=== PATIENT | female | born 1960 | race Caucasian/White ===

== ENCOUNTER → 2017-11-17 | Outpatient (CLI) | payer BC ==
[~2017-11-17] MED LIST: FLUT230A INH; MULT-160 PO; VENL150C56 PO; ZOLP10TA PO
[2017-11-17 17:05] LABS: ALBUMIN 3.8 gm/dl (3.4-5.0); ALKALINE PHOSPHATASE 125 U/L (45-117); ALT/SGPT 144 U/L (12-78); AST/SGOT 103 U/L (15-37); BLOOD UREA NITROGEN 13 mg/dl (7-18); CALCIUM 9.5 mg/dl (8.5-10.1); CARBON DIOXIDE 30 mmol/L (21-32); CREATININE 1.04 mg/dl (0.60-1.20); GLUCOSE 84 mg/dl (70-99); POTASSIUM 3.6 mmol/L (3.5-5.1); SODIUM 136 mmol/L (136-145); TOTAL PROTEIN 8.2 gm/dl (6.4-8.2)
[2017-11-17 17:36] LABS: HEMOGLOBIN A1C 6.8 % (4.5-5.6)
== END | disposition home or self-care (01) ==
LOC: C.LAB1850 15:12
PROVIDERS: ATTEND Internal Medicine
DX: R74.0 Nonspecific elevation of levels of transaminase and lactic acid dehydrogenase [LDH] (principal); I10 Essential (primary) hypertension; R79.9 Abnormal finding of blood chemistry, unspecified; R73.9 Hyperglycemia, unspecified

== ENCOUNTER → 2017-12-15 | Outpatient (CLI) | payer BC ==
--- NOTE | 2017-12-15 08:36 | DIAGNOSTIC IMAGING REPORT ---
ABDOMEN LIMITED (US) CLINICAL HISTORY: 57 years-old Female presenting with R74.0 Elevated transaminase [id number] Elevated alkaline phospha. TECHNIQUE: Real-time grayscale and limited color Doppler ultrasound imaging of the abdomen limited to the right upper quadrant was performed. COMPARISON: 03/20/[address] from 2008. FINDINGS: Pancreas: Largely obscured due to overlying bowel gas. Liver: Moderately hyperechogenic parenchyma with partial obscuration of the right hemidiaphragm, likely indicating moderate steatosis. The liver measures 19.4 cm in maximal sagittal dimension. No sonographic evidence of hepatic mass. Main portal vein patent with normal directional flow. Biliary: No intrahepatic biliary ductal dilatation. Common bile duct measures up to 3 mm in diameter. Gallbladder: Surgically absent. Right kidney: Normal in appearance. No hydronephrosis. Ascites: None. IMPRESSION: 1. Hepatic steatosis. Correlate with liver function tests to exclude steatohepatitis as a cause for abdominal pain. 2. Mild hepatomegaly 3. Status post cholecystectomy. Electronically signed by: Pramod Davis M.D. 12/15/2017 8:35 AM Dictated Date/Time: 12/15/2017 8:33 AM
== END | disposition home or self-care (01) ==
LOC: C.ULTRBC 07:46
PROVIDERS: ATTEND Internal Medicine
DX: R74.0 Nonspecific elevation of levels of transaminase and lactic acid dehydrogenase [LDH] (principal); R74.8 Abnormal levels of other serum enzymes; R16.0 Hepatomegaly, not elsewhere classified; K76.0 Fatty (change of) liver, not elsewhere classified

== ENCOUNTER 2023-06-13 08:47 | Inpatient (IN) ==
[2023-06-13] MEDS ORDERED: LORazepam 1 MG TAB SL STA (09:08)
[2023-06-13] MEDS ORDERED: metFORMIN HCL 500 MG TAB PO STA (09:08)
--- NOTE | 2023-06-13 09:08 | Emergency Department Note ---
Impression & Plan Suicidal ideations, Acute hyperglycemia ED Provider Note NAME: NOE GREEN AGE: 62 SEX: F : 1960 ARRIVES VIA: Walk-In INFORMANT: Patient ED PROVIDER(S): Kaiden Servin DO CHIEF COMPLAINT: Suicidal ideations HPI: Patient is a 62-year-old female who presents to the ER for suicidal ideations. She has a history of depression and notes that over the past 3 days she has been thinking of killing herself. She notes that she is going to overdose on her medications. Denies any headache or change in vision. No chest pain or shortness of breath. No nausea, vomiting, or diarrhea. She notes everything is secondary to her son dying and today is the anniversary of her son's . She notes that she has been having trouble taking her medications. PAST MEDICAL HISTORY:See Below PAST SURGICAL HISTORY:See Below FAMILY HISTORY:See Below SOCIAL HISTORY:See Below HOME MEDICATIONS:See Below ALLERGIES:See Below VITALS:See Below PHYSICAL EXAMINATION: GENERAL: Sitting up in bed, alert, well appearing, well nourished, no distress, non-toxic EYE EXAM: normal conjunctiva. OROPHARYNX: no exudate, no erythema, lips, buccal mucosa, and tongue normal and mucous membranes are moist NECK: supple, no nuchal rigidity, no adenopathy, non-tender LUNGS: Clear to auscultation. Normal chest wall mechanics HEART: no murmurs, S1 normal and S2 normal ABDOMEN: abdomen soft, non-tender, normo-active bowel sounds, no masses, no rebound or guarding. BACK: Back is symmetrical on inspection and there is no deformity, no midline tenderness, no CVA tenderness. SKIN: no rashes and no bruising UPPER EXTREMITIES: upper extremities are grossly normal. LOWER EXTREMITIES: No pitting edema. NEURO EXAM: Normal sensorium, cranial nerves II-XII grossly intact, normal speech, no gross weakness of arms, no gross weakness of legs. PSYCH: Admits to suicidal ideations with a plan to overdose MEDICAL DECISION MAKING: Patient is a 62-year-old female who presents ER for above-stated complaint. IV was established blood work was obtained. External records reviewed. Labs show no significant leukocytosis or anemia. BMP with mild hyponatremia at 134 which was pseudohyponatremia secondary to the hyperglycemia at 348. Patient was given IV fluids and IV insulin. Sugars trended down to 160. LFTs were unremarkable. TSH was normal. UA was contaminated. Tox was negative. Alcohol negative. COVID-negative. Patient was referred to 3 S. Sugars were elevated as she missed her metformin today. She was admitted for further work-up for suicidal ideations with a plan to kill her self. Patient was also given one-time dose of oral Ativan to help her calm down during evaluation Triage Nursing notes reviewed. Limited review of prior medical records performed Vital Signs: reviewed and remarkable for HTN Differential diagnosis: Mood disorder, infection, hypoglycemia, electrolyte abnormalities, cardiac sources, intracerebral event, toxicologic, trauma, neurologic, as well as other pathologies. ER treatment provided: See below Diagnostics interpreted by me include EKG and cardiac monitoring as listed below: -Cardiac Monitoring: An order was placed for continuous cardiac monitoring. The monitor shows a rate of 90 with sinus rhythm. -ECG: none -Laboratory studies:Interpreted by me as stated above in MDM and shown below. Imaging studies: Xrays: As interpreted by me:none CTs show: none Consultation(s): As described in MDM Procedures:none Critical Care: None Past Med/Surg History Medical History Anxiety and depression Asthma Endometriosis History of COVID-19 Nausea and vomiting after administration of anesthetic agent Suicidal ideation Surgical History H/O colonoscopy History of cholecystectomy History of dilation and curettage History of esophagogastroduodenoscopy (EGD) History of hysteroscopy History of laparoscopy History of total abdominal hysterectomy Hx of hernia repair Family History Father Lymphoma Acute myocardial infarction Diabetes Myocardial infarction Son Chronic liver disease Denies family history of Ovarian cancer Prostate cancer Breast cancer Colorectal cancer Social History Smoking Status: Never smoker Second Hand Exposure: Yes (mother smoked); Do You Dip or Chew Tobacco: No; Hx Alcohol Use: Yes Alcohol type: hard liquor Hx Substance Use: No Preferred Language: Maori Communication Ability: Effective Visual Impairment: No Limitations Hearing Ability: Normal Arcade Game Technician Required: No Beliefs That Will Affect Care: None marital status: Current Living Situation: Alone current occupational status: employed current occupation: medical billing Feels Safe at Home: Yes Childhood Exposure to Second-Hand Smoke: Yes Dental Care, Regularly: Yes Physical Activity Frequency: Daily Seatbelt Use: always Sunscreen Use: No Gender Identity: Female Assistive Devices: None Allergies Allergies Allergy/AdvReac Type Severity Reaction Status Date / Time codeine Allergy Unknown RASH - PER Verified 06/13/23 10:31 DR BAJWA, PT HAS HAD MORPHINE IN PAST Home Meds Home Medications Medication Instructions Recorded Confirmed multivitamin (One-A-Day Essential 1 tab PO HS 05/03/19 06/13/23 tablet) blood sugar diagnostic (OneTouch 03/19/21 04/18/23 Verio test strips) lancets 33 gauge (BD Ultra Fine 03/19/21 04/18/23 Lancets) fluticasone furoate 200 1 inh inhalation BID 06/13/23 06/13/23 mcg-vilanterol 25 mcg/dose inhalation powder Previous Rx's Medication Instructions Recorded metformin 500 mg tablet 500 mg PO TID #90 tabs 02/14/23 atorvastatin 40 mg tablet 40 mg PO HS #30 tabs 03/18/23 buspirone 7.5 mg tablet 7.5 mg PO BID #180 tabs 04/10/23 albuterol sulfate 90 mcg/actuation 2 puff inhalation QAM #8.5 grams 05/05/23 aerosol inhaler (Ventolin HFA) venlafaxine 150 mg 150 mg PO HS #90 caps 05/09/23 capsule,extended release 24 hr (Effexor XR) venlafaxine 75 mg capsule,extended 75 mg PO HS #90 caps 05/09/23 release 24 hr (Effexor XR) lorazepam 0.5 mg tablet 0.5 mg PO BID PRN anxiety #60 tabs 05/15/23 zolpidem 10 mg tablet 10 mg PO HS #30 tabs 06/09/23 aripiprazole 2 mg tablet (Abilify) 2 mg PO DAILY #30 tabs 06/12/23 Results & Data (ED) Vital Signs Vital Signs - 24 hr 06/13/23 08:51 06/13/23 11:54 Temperature 36.7 C Temperature Source Temporal Artery Scan Pulse Rate 96 H Pulse Rate [Apical] 86 Respiratory Rate 20 18 Respiratory Effort / Characteristics Non-Labored Spontaneous Respiratory Depth Normal Respiratory Pattern Regular Blood Pressure 212/109 H Blood Pressure [Right Arm] 152/93 H Blood Pressure Mean 143 Blood Pressure Mean [Right Arm] 112 Blood Pressure Position Sitting Pulse Oximetry 97 98 Oxygen Delivery Method Room Air Sepsis Recent Fever Within 48 Hours No Sepsis New/Unexplained Change in Mental Status No Sepsis Action Taken by Nursing No Action Required Laboratory Data 06/13/23 09:16 06/13/23 09:16 Lab Results 06/13/23 06/13/23 06/13/23 Range/Units 09:16 09:16 09:16 WBC 6.20 (4.8-10.8) K/ul RBC 4.82 (4.20-5.40) M/uL Hgb 14.6 (12.0-16.0) g/dl Hct 44.1 (37.0-47.0) % MCV 91.5 (80.0-100.0) fL MCH 30.3 (25.0-34.0) pg MCHC 33.1 (32.0-36.0) g/dL RDW Std Deviation 47.2 H (36.4-46.3) fL RDW Coeff of Pako 14.0 (11.5-14.5) % Plt Count 223 (130-400) K/uL MPV 11.1 (9.4-12.4) fL Immature Gran % (Auto) 1.0 % Neut % (Auto) 70.1 % Lymph % (Auto) 21.6 % Coleman % (Auto) 4.7 % Eos % (Auto) 1.6 % Baso % (Auto) 1.0 % Neut # (Auto) 4.35 (1.40-6.50) K/uL Lymph # (Auto) 1.34 (1.2-3.4) K/uL Coleman # (Auto) 0.29 (0.11-0.59) K/uL Eos # (Auto) 0.10 (0-0.50) K/uL Baso # (Auto) 0.06 (0-0.2) K/uL Immature Gran # (Auto) 0.06 (0.01-0.20) K/uL Sodium 134 L (136-145) mmol/L Potassium 4.0 (3.5-5.1) mmol/L Chloride 102 (98-107) mmol/L Carbon Dioxide 24 (21-32) mmol/L Anion Gap 8 (3-11) BUN 16 (6-23) mg/dl Creatinine 0.93 (0.6-1.2) mg/dl Est Cr Clr Drug Dosing 86.0 ml/min Est GFR ( Amer) 76.9 ml/min Est GFR (Non-Af Amer) 66.3 ml/min BUN/Creatinine Ratio 17.2 (10-20) Glucose 348 H* (70-99(Fasting)) mg/dl POC Glucose (70-99) mg/dl Calcium 9.5 (8.6-10.3) mg/dl Total Bilirubin 0.5 (0.2-1.0) mg/dl AST 49 H (13-39) U/L ALT 91 H (7-52) U/L Alkaline Phosphatase 105 H (34-104) U/L Total Protein 7.1 (6.0-8.3) gm/dl Albumin 4.1 (3.4-5.0) gm/dl Globulin 3.0 (2.5-4.0) gm/dl Albumin/Globulin Ratio 1.4 (0.9-2) TSH 2.394 (0.300-4.500) uIu/ml Urine Color Urine Appearance (Clear) Urine pH (4.5-7.5) Ur Specific Premont (1.000-1.030) Urine Protein (Negative) Urine Glucose (UA) (Negative) Urine Ketones (Negative) Urine Blood (Negative) Urine Nitrite (Negative) Urine Bilirubin (Negative) Urine Urobilinogen (Negative) Ur Leukocyte Esterase (Negative) Urine WBC (Auto) (0-5) /hpf Urine RBC (Auto) (0-4) /hpf U Hyaline Cast (Auto) (0-5) /lpf U Epithel Cells (Auto) (0-5) /lpf Urine Bacteria (Auto) (Negative) Salicylates (3.0-30) mg/dl Urine Opiates Screen (Neg) Ur Methadone, Qual (Neg) Acetaminophen (10-30) ug/ml Urine Barbiturates (Neg) Ur Phencyclidine (PCP) (Neg) U Amphetamin/Meth Scrn (Neg) MDMA (Ecstasy) Screen (Neg) U Benzodiazepines Scrn (Neg) Ur Cocaine Metabolite (Neg) U Marijuana (THC) Screen (Neg) Ethyl Alcohol mg/dL (<10.0) mg/dl SARS-CoV-2, RNA, NAAT (NEGATIVE) 06/13/23 06/13/23 06/13/23 Range/Units 09:16 09:16 09:23 WBC (4.8-10.8) K/ul RBC (4.20-5.40) M/uL Hgb (12.0-16.0) g/dl Hct (37.0-47.0) % MCV (80.0-100.0) fL MCH (25.0-34.0) pg MCHC (32.0-36.0) g/dL RDW Std Deviation (36.4-46.3) fL RDW Coeff of Pako (11.5-14.5) % Plt Count (130-400) K/uL MPV (9.4-12.4) fL Immature Gran % (Auto) % Neut % (Auto) % Lymph % (Auto) % Coleman % (Auto) % Eos % (Auto) % Baso % (Auto) % Neut # (Auto) (1.40-6.50) K/uL Lymph # (Auto) (1.2-3.4) K/uL Coleman # (Auto) (0.11-0.59) K/uL Eos # (Auto) (0-0.50) K/uL Baso # (Auto) (0-0.2) K/uL Immature Gran # (Auto) (0.01-0.20) K/uL Sodium (136-145) mmol/L Potassium (3.5-5.1) mmol/L Chloride (98-107) mmol/L Carbon Dioxide (21-32) mmol/L Anion Gap (3-11) BUN (6-23) mg/dl Creatinine (0.6-1.2) mg/dl Est Cr Clr Drug Dosing ml/min Est GFR ( Amer) ml/min Est GFR (Non-Af Amer) ml/min BUN/Creatinine Ratio (10-20) Glucose (70-99(Fasting)) mg/dl POC Glucose (70-99) mg/dl Calcium (8.6-10.3) mg/dl Total Bilirubin (0.2-1.0) mg/dl AST (13-39) U/L ALT (7-52) U/L Alkaline Phosphatase (34-104) U/L Total Protein (6.0-8.3) gm/dl Albumin (3.4-5.0) gm/dl Globulin (2.5-4.0) gm/dl Albumin/Globulin Ratio (0.9-2) TSH (0.300-4.500) uIu/ml Urine Color Urine Appearance (Clear) Urine pH (4.5-7.5) Ur Specific Premont (1.000-1.030) Urine Protein (Negative) Urine Glucose (UA) (Negative) Urine Ketones (Negative) Urine Blood (Negative) Urine Nitrite (Negative) Urine Bilirubin (Negative) Urine Urobilinogen (Negative) Ur Leukocyte Esterase (Negative) Urine WBC (Auto) (0-5) /hpf Urine RBC (Auto) (0-4) /hpf U Hyaline Cast (Auto) (0-5) /lpf U Epithel Cells (Auto) (0-5) /lpf Urine Bacteria (Auto) (Negative) Salicylates < 3.0 L (3.0-30) mg/dl Urine Opiates Screen (Neg) Ur Methadone, Qual (Neg) Acetaminophen < 3 L (10-30) ug/ml Urine Barbiturates (Neg) Ur Phencyclidine (PCP) (Neg) U Amphetamin/Meth Scrn (Neg) MDMA (Ecstasy) Screen (Neg) U Benzodiazepines Scrn (Neg) Ur Cocaine Metabolite (Neg) U Marijuana (THC) Screen (Neg) Ethyl Alcohol mg/dL < 10.0 (<10.0) mg/dl SARS-CoV-2, RNA, NAAT NEGATIVE (NEGATIVE) 06/13/23 06/13/23 06/13/23 Range/Units 09:23 09:23 11:12 WBC (4.8-10.8) K/ul RBC (4.20-5.40) M/uL Hgb (12.0-16.0) g/dl Hct (37.0-47.0) % MCV (80.0-100.0) fL MCH (25.0-34.0) pg MCHC (32.0-36.0) g/dL RDW Std Deviation (36.4-46.3) fL RDW Coeff of Pako (11.5-14.5) % Plt Count (130-400) K/uL MPV (9.4-12.4) fL Immature Gran % (Auto) % Neut % (Auto) % Lymph % (Auto) % Coleman % (Auto) % Eos % (Auto) % Baso % (Auto) % Neut # (Auto) (1.40-6.50) K/uL Lymph # (Auto) (1.2-3.4) K/uL Coleman # (Auto) (0.11-0.59) K/uL Eos # (Auto) (0-0.50) K/uL Baso # (Auto) (0-0.2) K/uL Immature Gran # (Auto) (0.01-0.20) K/uL Sodium (136-145) mmol/L Potassium (3.5-5.1) mmol/L Chloride (98-107) mmol/L Carbon Dioxide (21-32) mmol/L Anion Gap (3-11) BUN (6-23) mg/dl Creatinine (0.6-1.2) mg/dl Est Cr Clr Drug Dosing ml/min Est GFR ( Amer) ml/min Est GFR (Non-Af Amer) ml/min BUN/Creatinine Ratio (10-20) Glucose (70-99(Fasting)) mg/dl POC Glucose 249 H (70-99) mg/dl Calcium (8.6-10.3) mg/dl Total Bilirubin (0.2-1.0) mg/dl AST (13-39) U/L ALT (7-52) U/L Alkaline Phosphatase (34-104) U/L Total Protein (6.0-8.3) gm/dl Albumin (3.4-5.0) gm/dl Globulin (2.5-4.0) gm/dl Albumin/Globulin Ratio (0.9-2) TSH (0.300-4.500) uIu/ml Urine Color Yellow Urine Appearance Clear (Clear) Urine pH 5.0 (4.5-7.5) Ur Specific Premont 1.036 H (1.000-1.030) Urine Protein Trace H (Negative) Urine Glucose (UA) 3+ H (Negative) Urine Ketones Trace H (Negative) Urine Blood Negative (Negative) Urine Nitrite Negative (Negative) Urine Bilirubin Negative (Negative) Urine Urobilinogen Negative (Negative) Ur Leukocyte Esterase Negative (Negative) Urine WBC (Auto) 5-10 H (0-5) /hpf Urine RBC (Auto) 0-4 (0-4) /hpf U Hyaline Cast (Auto) 1-5 (0-5) /lpf U Epithel Cells (Auto) >30 H (0-5) /lpf Urine Bacteria (Auto) 1+ H (Negative) Salicylates (3.0-30) mg/dl Urine Opiates Screen Neg (Neg) Ur Methadone, Qual Neg (Neg) Acetaminophen (10-30) ug/ml Urine Barbiturates Neg (Neg) Ur Phencyclidine (PCP) Neg (Neg) U Amphetamin/Meth Scrn Neg (Neg) MDMA (Ecstasy) Screen Neg (Neg) U Benzodiazepines Scrn Neg (Neg) Ur Cocaine Metabolite Neg (Neg) U Marijuana (THC) Screen Neg (Neg) Ethyl Alcohol mg/dL (<10.0) mg/dl SARS-CoV-2, RNA, NAAT (NEGATIVE) 06/13/23 Range/Units 11:55 WBC (4.8-10.8) K/ul RBC (4.20-5.40) M/uL Hgb (12.0-16.0) g/dl Hct (37.0-47.0) % MCV (80.0-100.0) fL MCH (25.0-34.0) pg MCHC (32.0-36.0) g/dL RDW Std Deviation (36.4-46.3) fL RDW Coeff of Pako (11.5-14.5) % Plt Count (130-400) K/uL MPV (9.4-12.4) fL Immature Gran % (Auto) % Neut % (Auto) % Lymph % (Auto) % Coleman % (Auto) % Eos % (Auto) % Baso % (Auto) % Neut # (Auto) (1.40-6.50) K/uL Lymph # (Auto) (1.2-3.4) K/uL Coleman # (Auto) (0.11-0.59) K/uL Eos # (Auto) (0-0.50) K/uL Baso # (Auto) (0-0.2) K/uL Immature Gran # (Auto) (0.01-0.20) K/uL Sodium (136-145) mmol/L Potassium (3.5-5.1) mmol/L Chloride (98-107) mmol/L Carbon Dioxide (21-32) mmol/L Anion Gap (3-11) BUN (6-23) mg/dl Creatinine (0.6-1.2) mg/dl Est Cr Clr Drug Dosing ml/min Est GFR ( Amer) ml/min Est GFR (Non-Af Amer) ml/min BUN/Creatinine Ratio (10-20) Glucose (70-99(Fasting)) mg/dl POC Glucose 167 H (70-99) mg/dl Calcium (8.6-10.3) mg/dl Total Bilirubin (0.2-1.0) mg/dl AST (13-39) U/L ALT (7-52) U/L Alkaline Phosphatase (34-104) U/L Total Protein (6.0-8.3) gm/dl Albumin (3.4-5.0) gm/dl Globulin (2.5-4.0) gm/dl Albumin/Globulin Ratio (0.9-2) TSH (0.300-4.500) uIu/ml Urine Color Urine Appearance (Clear) Urine pH (4.5-7.5) Ur Specific Premont (1.000-1.030) Urine Protein (Negative) Urine Glucose (UA) (Negative) Urine Ketones (Negative) Urine Blood (Negative) Urine Nitrite (Negative) Urine Bilirubin (Negative) Urine Urobilinogen (Negative) Ur Leukocyte Esterase (Negative) Urine WBC (Auto) (0-5) /hpf Urine RBC (Auto) (0-4) /hpf U Hyaline Cast (Auto) (0-5) /lpf U Epithel Cells (Auto) (0-5) /lpf Urine Bacteria (Auto) (Negative) Salicylates (3.0-30) mg/dl Urine Opiates Screen (Neg) Ur Methadone, Qual (Neg) Acetaminophen (10-30) ug/ml Urine Barbiturates (Neg) Ur Phencyclidine (PCP) (Neg) U Amphetamin/Meth Scrn (Neg) MDMA (Ecstasy) Screen (Neg) U Benzodiazepines Scrn (Neg) Ur Cocaine Metabolite (Neg) U Marijuana (THC) Screen (Neg) Ethyl Alcohol mg/dL (<10.0) mg/dl SARS-CoV-2, RNA, NAAT (NEGATIVE) Administered Medications Discontinued Medications Sodium Chloride (Nss 1000ml) 1,000 mls @ 999 mls/hr IV .[id number] ONE Stop: 06/13/23 11:03 Last Infusion: 06/13/23 11:29 Dose: 0 mls/hr Documented By: Admin: 06/13/23 10:18 Dose: 999 mls/hr Documented By: JAY Insulin Human Regular (Novolin-R Insulin Per Unit Charge) 5 units IV NOW STA Stop: 06/13/23 10:04 Last Admin: 06/13/23 10:17 Dose: 5 units Documented By: JAY Co-signed By: ELIS Lorazepam (Lorazepam 1 Mg Tab) 1 mg SL NOW STA Stop: 06/13/23 09:09 Last Admin: 06/13/23 09:34 Dose: 1 mg Documented By: JAY Metformin HCl (Metformin Hcl 500 Mg Tab) 1,000 mg PO NOW STA Stop: 06/13/23 09:09 Last Admin: 06/13/23 09:40 Dose: 1,000 mg Documented By: JAY Discharge Plan Visit Data Chief Complaint: Mental Health Evaluation Stated Complaint: [facility] ED Provider: Kaiden Servin Discharge Problem: Suicidal ideations, Acute hyperglycemia
[2023-06-13 09:46] LABS: Basophils # (auto) 0.06 K/uL (0-0.2); Eosinophils % (auto) 1.6 %; Hematocrit (blood only) 44.1 % (37.0-47.0); Hemoglobin 14.6 g/dl (12.0-16.0); Immature Granulocytes # (auto) 0.06 K/uL (0.01-0.20); Lymphocytes # (auto) 1.34 K/uL (1.2-3.4); Lymphocytes % (auto) 21.6 %; Mean Corpuscular Hemoglobin 30.3 pg (25.0-34.0); Mean Corpuscular Hgb Conc 33.1 g/dL (32.0-36.0); Mean Corpuscular Volume 91.5 fL (80.0-100.0); Mean Platelet Volume 11.1 fL (9.4-12.4); Monocytes # (auto) 0.29 K/uL (0.11-0.59); Monocytes % (auto) 4.7 %; Neutrophils # (auto) 4.35 K/uL (1.40-6.50); Neutrophils % (auto) 70.1 %; Platelet Count 223 K/uL (130-400); RDW Standard Deviation 47.2 fL (36.4-46.3); Red Blood Count 4.82 M/uL (4.20-5.40)
[2023-06-13] MEDS ORDERED: NovoLIN-R INSULIN PER UNIT CHARGE IV STA (10:03)
[2023-06-13] MEDS ORDERED: SODIUM CHLORIDE 0.9% 1000ML 1,000 ML IV ONE (10:03)
[2023-06-13 10:04] LABS: Albumin Globulin Ratio 1.4 (0.9-2); Albumin Level 4.1 gm/dl (3.4-5.0); BUN Creatinine Ratio 17.2 (10-20); Bilirubin,Total 0.5 mg/dl (0.2-1.0); Calcium 9.5 mg/dl (8.6-10.3); Est GFR (African American) 76.9 ml/min; Est GFR (Non-African American) 66.3 ml/min; Total Protein 7.1 gm/dl (6.0-8.3)
[2023-06-13 10:10] LABS: Acetaminophen < 3 ug/ml (10-30); Salicylate < 3.0 mg/dl (3.0-30)
[2023-06-13 10:23] LABS: Amphetamines+Metham, Urine Neg (Neg); Barbiturates, Urine Neg (Neg); Benzodiazepine, Urine Neg (Neg); Cocaine, Urine Neg (Neg); MDMA (Ecstacy), Urine Neg (Neg); Methadone, Urine Neg (Neg); Opiate, Urine Neg (Neg); Phencyclidine, Urine Neg (Neg)
[2023-06-13 10:25] LABS: Appearance Urine Clear (Clear); Bacteria Urine Automated 1+ (Negative); Bilirubin Urine Negative (Negative); Blood Urine Negative (Negative); Color Urine Yellow; Epithelial Cell Urine Auto >30 /lpf (0-5); Glucose Urine UA 3+ (Negative); Ketones Urine Trace (Negative); Leukocyte Esterase Urine Negative (Negative); Nitrite Urine Negative (Negative); Protein Urine Trace (Negative); RBC Urine Automated 0-4 /hpf (0-4); Specific Gravity Urine 1.036 (1.000-1.030); Urobilinogen Urine Negative (Negative)
[2023-06-13] MEDS ORDERED: MAGNESIUM HYDROXIDE SUSP 30 ML UDC PO PRN (12:56)
[2023-06-13] MEDS ORDERED: ALUMINUM/MAGNESIUM SUSP 30 ML UDC PO PRN (12:56)
[2023-06-13] MEDS ORDERED: hydrOXYzine HCl 25 MG TAB PO PRN ×2 (12:56)
[2023-06-13] MEDS ORDERED: BISMUTH SUBSALICYLATE LIQD 236 ML PO PRN (12:56)
[2023-06-13] MEDS ORDERED: SODIUM CHLORIDE 0.65% NA SOLN 45 ML (OCEAN) PRN (12:56)
[2023-06-13] MEDS ORDERED: ACETAMINOPHEN 325 MG TAB PO PRN (12:56)
[2023-06-13] MEDS ORDERED: metFORMIN HCL 500 MG TAB PO SCH (14:00)
[2023-06-13] MEDS ORDERED: PHARMACY GLYCEMIC MGMT CONSULT PRN (14:29)
--- NOTE | 2023-06-13 14:49 | Pharmacy Report ---
Pharmacy Glycemic Short Note 2 - Date of Service June 13, 2023 - Glycemic Short BSG Results (Last 24 hours): 06/13/23 06/13/23 06/13/23 09:16 11:12 11:55 Glucose 348 H* POC Glucose 249 H 167 H OUTPATIENT ANTIDIABETIC REGIMEN: * metformin 500 mg PO TID * HbA1C = 8.1% (10/2022) -- on order for 06/14/23 ASSESSMENT: * Ms Fung is a 62 y/o F with a PMH of T2DM on metformin. HbA1C > 3 months old so ordered new value. * BSG on admission was 348 but per patient this was after a large breakfast. She also did not take her metformin this morning * Lunch BSG was 249/167 mg/dL. * Discussed with RN. Patient is agreeable to insulin but would like to attempt to manage BSGs with metformin first. RN will add ACHS checks (no Novolog ordered at this point). * Insulin to be ordered tomorrow if BSGs are elevated. PLAN FOR INPATIENT GLYCEMIC CONTROL: * metformin 500 mg PO TIDM * Basal insulin * HOLD * Bolus insulin - HOLD at this point * NovoLog per scale ACHS or Q6hrs while NPO * Goal Range: Low -- mg/dL - High -- mg/dL * Correction Factor: -- mg/dL/unit * Nutritional / Prandial insulin per carb ratio of 1 unit per -- grams CHO consumed
[2023-06-13] MEDS: metFORMIN HCL 500 MG TAB PO SCH (17:18)
[2023-06-13] MEDS ORDERED: ALBUTEROL HFA 8 GM INHALER INH PRN (18:57)
[2023-06-13] MEDS ORDERED: VENLAFAXINE HCL XR 150 MG CAPXR PO SCH (21:00)
[2023-06-13] MEDS ORDERED: ARIPiprazole 5 MG TAB PO SCH (21:00)
[2023-06-13] MEDS: busPIRone 7.5 MG TAB PO SCH (21:43)
[2023-06-13] MEDS: FLUTICASONE/VILANTEROL 200/25MCG 14 PUFFS/INHALER INH SCH (21:44)
[2023-06-13] MEDS: MULTIVITAMIN TAB PO SCH (21:44)
[2023-06-13] MEDS: ZOLPIDEM TARTRATE 5 MG TAB PO SCH (21:52)
[2023-06-13] MEDS ORDERED: ZOLPIDEM TARTRATE 10 MG TAB PO SCH (22:00)
[2023-06-13] MEDS ORDERED: ARIPIprazole 1 MG/ML ORAL SOLN 150 ML BTL PO SCH (22:00)
[2023-06-13] MEDS ORDERED: VENLAFAXINE HCL XR 75 MG CAPXR PO SCH (22:00)
[2023-06-13] MEDS: VENLAFAXINE HCL XR 150 MG CAPXR PO SCH (22:07)
[2023-06-14 07:54] LABS: Chol HDL Ratio 5.4 (0-5)
[2023-06-14 07:56] LABS: Estimated Average Glucose 243 mg/dl; Hemoglobin A1C 10.1 % (4.5-5.6)
[2023-06-14] MEDS ORDERED: DEXTROSE 50% 50 ML SYRINGE IV PRN (08:30)
[2023-06-14] MEDS ORDERED: CARBOHYDRATES FOR HYPOGLYCEMIA PO PRN (08:30)
[2023-06-14] MEDS ORDERED: GLUCOSE 40% GEL 15 GM TUBE PO PRN (08:30)
[2023-06-14] MEDS ORDERED: GLUCOSE 10 TAB/TUBE PO PRN (08:30)
[2023-06-14] MEDS ORDERED: GLUCAGON FOR INJ 1 MG VIAL IM PRN (08:30)
[2023-06-14] MEDS: metFORMIN HCL 500 MG TAB PO SCH ×3 (08:53→18:41)
[2023-06-14] MEDS: busPIRone 7.5 MG TAB PO SCH ×2 (08:53→18:41)
[2023-06-14] MEDS: ATORVASTATIN 40 MG TAB PO SCH (08:53)
[2023-06-14] MEDS: INSULIN ASPART PER UNIT CHARGE SC SCH ×4 (09:00→21:17)
--- NOTE | 2023-06-14 13:28 | History & Physical ---
Date of Service June 14, 2023 Impression / Recommendations Impression 62 yo female with a hx of recurring depression with anxious features since the loss of her son 10 years ago. Full med trial info not currently available but desires to change longstanding rx of Effexor XR. Patient's LFTs, glucose, and lipid profile worsening, unclear if self care/compliance vs. low dose Abilify, regardless reports no interval improvement on 3 mg vs 2 mg. (1) Depression with anxiety: (2) Diabetes mellitus type 2, uncontrolled: (3) Elevated liver enzymes: Plan The patient was admitted to the [facility] ([facility] mental health unit) on q15 min checks (behavioral with suicide precautions) for safety. The patient will participate in group, recreational, and milieu therapies and will be offered additional individual and family sessions as clinically appropriate. Risks/benefits/alternatives reviewed re: current medications, including but not limited to metabolic risks with Abilify and need for taper of Effexor XR due to discontinuation syndrome risk. Patient has hx of side effects to SSRIs and traditionally responded well to SNRI so would offer trial of Cymbalta as Effexor decreased, will discuss more in am. Decrease Effexor XR to 150 mg tonight. Inventory Assets Strengths: thoughtful, help seeking Needs: outpatient therapy/medication management, improve social activities. Suicide Risk Level Suicide Risk Level: Moderate (q15 min suicide checks) Risk Factors Assessment : Yes Do You Have Access To A Gun?: No Mental Health Diagnoses: Yes Substance Use Disorders: No Previous Attempt: No Previous Psychiatric Hospitalization: Yes Protective Factors Assessment Employed: No Psychiatric History Identifying Data NOE GREEN is a 62-year-old F who currently lives in [place], has a history of depression/complicated grief with 1 prior inpatient stay, and was admitted on 06/13/23 12:56 on a 201 voluntary commitment for SI with plan. Note: the patient was seen within 24 hrs. of arrival to our unit, note creation was delayed due to technical issue. Chief Complaint "I'm lonely." History of Present Illness Patient states that since last contact she has continued to grieve the of her son. She did divorce and dated a man for 5 years and was engaged to him when he unfortunately due to COVID. She reports being laid off from work about 8 months ago and thought that would be "good but then it wasn't." She has been increasingly lonely the past month with lack of interest and motivation in things. She is considering giving her dog to an interested family as although she is meeting his needs, she doesn't feel attached "the way I should." She also does recognize this would be less companionship but "spirals" as also thinks about visiting friends which is difficult when has to be home for the pet. She has taken Effexor XR for years and just doesn't feel it's working as well. That said, had a consult with Dr. Kearney through [facility] in past and was started on Abilify with little perceived benefit. Her blood sugars are not as good lately and she isn't sure why, timing doesn't necessarily coincide with med change. Yesterday was the anniversary of her son's and it was "all too much" and that is why she decided to come to ED when had thoughts of OD on Ambien. She doesn't want to act on those thoughts as Ambien is the "only" thing that has helped her to sleep. Past Psychiatric History Current Psychiatric Diagnosis: depression, PTSD Previous Psych Admissions: 2012 [facility] (SI after son's ) Do You Have Access To A Gun?: No History of Previous Suicide Attempt: No Past Medication Trials: Prozac caused SI per patient, Wellbutrin (?ineffective), denied other mood stabilizers. Abilify, Effexor XR (?6 years), Buspar. Allergies Allergy/AdvReac Type Severity Reaction Status Date / Time codeine Allergy Unknown RASH - PER Verified 06/13/23 10:31 DR BAJWA, PT HAS HAD MORPHINE IN PAST Home Medications Medication Instructions Recorded Confirmed Type multivitamin (One-A-Day Essential 1 tab PO HS 05/03/19 06/13/23 History tablet) blood sugar diagnostic (OneTouch 03/19/21 04/18/23 History Verio test strips) lancets 33 gauge (BD Ultra Fine 03/19/21 04/18/23 History Lancets) metformin 500 mg tablet 500 mg PO TID #90 tabs 02/14/23 06/13/23 Rx atorvastatin 40 mg tablet 40 mg PO HS #30 tabs 03/18/23 06/13/23 Rx buspirone 7.5 mg tablet 7.5 mg PO BID #180 tabs 04/10/23 06/13/23 Rx albuterol sulfate 90 mcg/actuation 2 puff inhalation QAM #8.5 grams 05/05/23 06/13/23 Rx aerosol inhaler (Ventolin HFA) venlafaxine 150 mg 150 mg PO HS #90 caps 05/09/23 06/13/23 Rx capsule,extended release 24 hr (Effexor XR) venlafaxine 75 mg capsule,extended 75 mg PO HS #90 caps 05/09/23 06/13/23 Rx release 24 hr (Effexor XR) lorazepam 0.5 mg tablet 0.5 mg PO BID PRN anxiety #60 tabs 05/15/23 06/13/23 Rx zolpidem 10 mg tablet 10 mg PO HS #30 tabs 06/09/23 06/13/23 Rx fluticasone furoate 200 1 inh inhalation BID 06/13/23 06/14/23 History mcg-vilanterol 25 mcg/dose inhalation powder aripiprazole 2 mg tablet (Abilify) 2 mg PO HS 06/14/23 06/14/23 History Family History Family History of: None Family Mental Health History Comment: father had depression Alcohol History Hx of Alcohol Use Over the Past 12 Months: No AUDIT Total Score: 0 Smoking Use Have You Smoked or Used Tobacco Products in the Last 30 Days: No Smoking Status: Never smoker Substance History Hx of Prescription Med Misuse Over the Past 12 Months: No Hx of Over the Counter Med Misuse Over the Past 12 Months: No Hx of Inhalent Misuse Over the Past 12 Months: No Hx of Organic Substance Use Over the Past 12 Months: No Hx of Illegal Substances/Street Drug Use Over Past 12 Months: No Problems as a Result of Past Substance Use: None Identified Personal History Living Arrangements: Home Highest Grade Completed: High School Graduate Employment Status: Other (laid off, states would be able to retire) Marital Status: Number Of Children: 1 Beliefs That Will Affect Care: None Current Legal Problems: No Hx Legal Problems: No Hx Traumatic Life Events: Yes (multiple losses) Patient History Medical History Anxiety and depression Asthma inh prn Endometriosis History of COVID-19 10/2021, [facility] test, not hosp; headache, chills>resolved. Nausea and vomiting after administration of anesthetic agent "been ok with recent experiences w/anesthesia" Suicidal ideation hx Surgical History H/O colonoscopy History of cholecystectomy History of dilation and curettage History of esophagogastroduodenoscopy (EGD) History of hysteroscopy History of laparoscopy History of total abdominal hysterectomy w/bilat. tubes and ovaries Hx of hernia repair Family History Father Lymphoma Acute myocardial infarction Diabetes Myocardial infarction Son Chronic liver disease Denies family history of Ovarian cancer Prostate cancer Breast cancer Colorectal cancer Social History Smoking Status: Never smoker Second Hand Exposure: Yes (mother smoked); Do You Dip or Chew Tobacco: No; Hx Alcohol Use: Yes Alcohol type: hard liquor Hx Substance Use: No Preferred Language: Faroese Communication Ability: Effective Visual Impairment: No Limitations Hearing Ability: Normal Hospitality Internship Required: No Beliefs That Will Affect Care: None marital status: Current Living Situation: Alone current occupational status: employed current occupation: medical billing Feels Safe at Home: Yes Childhood Exposure to Second-Hand Smoke: Yes Dental Care, Regularly: Yes Physical Activity Frequency: Daily Seatbelt Use: always Sunscreen Use: No Gender Identity: Female Assistive Devices: None Review of Systems Review of Systems: All systems reviewed & are unremarkable except as noted in HPI & below Physical Exam Psychiatric: Orientation: alert and oriented x 3 Apperance: appropriately dressed and appropriately groomed Eye Contact: good eye contact Motor Behavior: no abnormal motor movements Speech: normal rate/rhythm/volume of speech Affect: + depressed affect Mood: + depressed mood Thought Pr ocess: goal directed thought process Thought Content: reality based without delusions Suicidal Thoughts: denies suicidal thoughts Homicidal Thoughts: denies homicidal thoughts Hallucinations: no auditory hallucinations and no visual hallucinations Cognition: attention grossly intact and language grossly intact Estimated Intelligence: consistent with education level Insight: + fair insight Vital Signs (Past 24 Hours): Last Vital Signs Temp 36.8 C 06/14/23 06:57 Pulse 83 06/14/23 06:58 Resp 18 06/14/23 06:57 BP 136/82 06/14/23 06:58 Pulse Ox 96 06/13/23 19:43 O2 Del Method Room Air 06/13/23 19:43 Results & Data ([facility]) Laboratory Results Microbiology 06/13/23 09:23 Urine,Clean Catch Urine Culture - Final More than three types of organisms present, all high counts mixed probable skin ana - No further identifications or sensitivities to follow. Labs 06/13/23 06/13/23 06/13/23 09:16 09:16 09:16 WBC 6.20 RBC 4.82 Hgb 14.6 Hct 44.1 MCV 91.5 MCH 30.3 MCHC 33.1 RDW Std Deviation 47.2 H RDW Coeff of Pako 14.0 Plt Count 223 MPV 11.1 Immature Gran % (Auto) 1.0 Neut % (Auto) 70.1 Lymph % (Auto) 21.6 Calloway % (Auto) 4.7 Eos % (Auto) 1.6 Baso % (Auto) 1.0 Neut # (Auto) 4.35 Lymph # (Auto) 1.34 Calloway # (Auto) 0.29 Eos # (Auto) 0.10 Baso # (Auto) 0.06 Immature Gran # (Auto) 0.06 Sodium 134 L Potassium 4.0 Chloride 102 Carbon Dioxide 24 Anion Gap 8 BUN 16 Creatinine 0.93 Est Cr Clr Drug Dosing 86.0 Est GFR ( Amer) 76.9 Est GFR (Non-Af Amer) 66.3 BUN/Creatinine Ratio 17.2 Glucose 348 H* POC Glucose Estimat Average Glucose Hemoglobin A1c Calcium 9.5 Total Bilirubin 0.5 AST 49 H ALT 91 H Alkaline Phosphatase 105 H Total Protein 7.1 Albumin 4.1 Globulin 3.0 Albumin/Globulin Ratio 1.4 Triglycerides Cholesterol LDL Cholesterol, Calc VLDL Cholesterol, Calc HDL Cholesterol Cholesterol/HDL Ratio TSH 2.394 Urine Color Urine Appearance Urine pH Ur Specific [place] Urine Protein Urine Glucose (UA) Urine Ketones Urine Blood Urine Nitrite Urine Bilirubin Urine Urobilinogen Ur Leukocyte Esterase Urine WBC (Auto) Urine RBC (Auto) U Hyaline Cast (Auto) U Epithel Cells (Auto) Urine Bacteria (Auto) Salicylates Urine Opiates Screen Ur Methadone, Qual Acetaminophen Urine Barbiturates Ur Phencyclidine (PCP) U Amphetamin/Meth Scrn MDMA (Ecstasy) Screen U Benzodiazepines Scrn Ur Cocaine Metabolite U Marijuana (THC) Screen Ethyl Alcohol mg/dL SARS-CoV-2, RNA, NAAT 06/13/23 06/13/23 06/13/23 09:16 09:16 09:23 WBC RBC Hgb Hct MCV MCH MCHC RDW Std Deviation RDW Coeff of Pako Plt Count MPV Immature Gran % (Auto) Neut % (Auto) Lymph % (Auto) [place] % (Auto) Eos % (Auto) Baso % (Auto) Neut # (Auto) Lymph # (Auto) [place] # (Auto) Eos # (Auto) Baso # (Auto) Immature Gran # (Auto) Sodium Potassium Chloride Carbon Dioxide Anion Gap BUN Creatinine Est Cr Clr Drug Dosing Est GFR ( Amer) Est GFR (Non-Af Amer) BUN/Creatinine Ratio Glucose POC Glucose Estimat Average Glucose Hemoglobin A1c Calcium Total Bilirubin AST ALT Alkaline Phosphatase Total Protein Albumin Globulin Albumin/Globulin Ratio Triglycerides Cholesterol LDL Cholesterol, Calc VLDL Cholesterol, Calc HDL Cholesterol Cholesterol/HDL Ratio TSH Urine Color Urine Appearance Urine pH Ur Specific [place] Urine Protein Urine Glucose (UA) Urine Ketones Urine Blood Urine Nitrite Urine Bilirubin Urine Urobilinogen Ur Leukocyte Esterase Urine WBC (Auto) Urine RBC (Auto) U Hyaline Cast (Auto) U Epithel Cells (Auto) Urine Bacteria (Auto) Salicylates < 3.0 L Urine Opiates Screen Ur Methadone, Qual Acetaminophen < 3 L Urine Barbiturates Ur Phencyclidine (PCP) U Amphetamin/Meth Scrn MDMA (Ecstasy) Screen U Benzodiazepines Scrn Ur Cocaine Metabolite U Marijuana (THC) Screen Ethyl Alcohol mg/dL < 10.0 SARS-CoV-2, RNA, NAAT NEGATIVE 06/13/23 06/13/23 06/13/23 09:23 09:23 11:12 WBC RBC Hgb Hct MCV MCH MCHC RDW Std Deviation RDW Coeff of Pako Plt Count MPV Immature Gran % (Auto) Neut % (Auto) Lymph % (Auto) [place] % (Auto) Eos % (Auto) Baso % (Auto) Neut # (Auto) Lymph # (Auto) [place] # (Auto) Eos # (Auto) Baso # (Auto) Immature Gran # (Auto) Sodium Potassium Chloride Carbon Dioxide Anion Gap BUN Creatinine Est Cr Clr Drug Dosing Est GFR ( Amer) Est GFR (Non-Af Amer) BUN/Creatinine Ratio Glucose POC Glucose 249 H Estimat Average Glucose Hemoglobin A1c Calcium Total Bilirubin AST ALT Alkaline Phosphatase Total Protein Albumin Globulin Albumin/Globulin Ratio Triglycerides Cholesterol LDL Cholesterol, Calc VLDL Cholesterol, Calc HDL Cholesterol Cholesterol/HDL Ratio TSH Urine Color Yellow Urine Appearance Clear Urine pH 5.0 Ur Specific [place] 1.036 H Urine Protein Trace H Urine Glucose (UA) 3+ H Urine Ketones Trace H Urine Blood Negative Urine Nitrite Negative Urine Bilirubin Negative Urine Urobilinogen Negative Ur Leukocyte Esterase Negative Urine WBC (Auto) 5-10 H Urine RBC (Auto) 0-4 U Hyaline Cast (Auto) 1-5 U Epithel Cells (Auto) >30 H Urine Bacteria (Auto) 1+ H Salicylates Urine Opiates Screen Neg Ur Methadone, Qual Neg Acetaminophen Urine Barbiturates Neg Ur Phencyclidine (PCP) Neg U Amphetamin/Meth Scrn Neg MDMA (Ecstasy) Screen Neg U Benzodiazepines Scrn Neg Ur Cocaine Metabolite Neg U Marijuana (THC) Screen Neg Ethyl Alcohol mg/dL SARS-CoV-2, RNA, NAAT 06/13/23 06/14/23 06/14/23 11:55 07:11 07:11 WBC RBC Hgb Hct MCV MCH MCHC RDW Std Deviation RDW Coeff of Pako Plt Count MPV Immature Gran % (Auto) Neut % (Auto) Lymph % (Auto) [place] % (Auto) Eos % (Auto) Baso % (Auto) Neut # (Auto) Lymph # (Auto) [place] # (Auto) Eos # (Auto) Baso # (Auto) Immature Gran # (Auto) Sodium Potassium Chloride Carbon Dioxide Anion Gap BUN Creatinine Est Cr Clr Drug Dosing Est GFR ( Amer) Est GFR (Non-Af Amer) BUN/Creatinine Ratio Glucose POC Glucose 167 H Estimat Average Glucose 243 Hemoglobin A1c 10.1 H Calcium Total Bilirubin AST ALT Alkaline Phosphatase Total Protein Albumin Globulin Albumin/Globulin Ratio Triglycerides 352 H Cholesterol 238 H LDL Cholesterol, Calc 124 VLDL Cholesterol, Calc 70 H HDL Cholesterol 44 Cholesterol/HDL Ratio 5.4 H TSH Urine Color Urine Appearance Urine pH Ur Specific [place] Urine Protein Urine Glucose (UA) Urine Ketones Urine Blood Urine Nitrite Urine Bilirubin Urine Urobilinogen Ur Leukocyte Esterase Urine WBC (Auto) Urine RBC (Auto) U Hyaline Cast (Auto) U Epithel Cells (Auto) Urine Bacteria (Auto) Salicylates Urine Opiates Screen Ur Methadone, Qual Acetaminophen Urine Barbiturates Ur Phencyclidine (PCP) U Amphetamin/Meth Scrn MDMA (Ecstasy) Screen U Benzodiazepines Scrn Ur Cocaine Metabolite U Marijuana (THC) Screen Ethyl Alcohol mg/dL SARS-CoV-2, RNA, NAAT 06/14/23 06/14/23 08:36 12:25 WBC RBC Hgb Hct MCV MCH MCHC RDW Std Deviation RDW Coeff of Pako Plt Count MPV Immature Gran % (Auto) Neut % (Auto) Lymph % (Auto) [place] % (Auto) Eos % (Auto) Baso % (Auto) Neut # (Auto) Lymph # (Auto) [place] # (Auto) Eos # (Auto) Baso # (Auto) Immature Gran # (Auto) Sodium Potassium Chloride Carbon Dioxide Anion Gap BUN Creatinine Est Cr Clr Drug Dosing Est GFR ( Amer) Est GFR (Non-Af Amer) BUN/Creatinine Ratio Glucose POC Glucose 171 H 138 H Estimat Average Glucose Hemoglobin A1c Calcium Total Bilirubin AST ALT Alkaline Phosphatase Total Protein Albumin Globulin Albumin/Globulin Ratio Triglycerides Cholesterol LDL Cholesterol, Calc VLDL Cholesterol, Calc HDL Cholesterol Cholesterol/HDL Ratio TSH Urine Color Urine Appearance Urine pH Ur Specific [place] Urine Protein Urine Glucose (UA) Urine Ketones Urine Blood Urine Nitrite Urine Bilirubin Urine Urobilinogen Ur Leukocyte Esterase Urine WBC (Auto) Urine RBC (Auto) U Hyaline Cast (Auto) U Epithel Cells (Auto) Urine Bacteria (Auto) Salicylates Urine Opiates Screen Ur Methadone, Qual Acetaminophen Urine Barbiturates Ur Phencyclidine (PCP) U Amphetamin/Meth Scrn MDMA (Ecstasy) Screen U Benzodiazepines Scrn Ur Cocaine Metabolite U Marijuana (THC) Screen Ethyl Alcohol mg/dL SARS-CoV-2, RNA, NAAT Laboratory Results - last 24 hr 06/14/23 06/14/23 06/14/23 07:11 07:11 08:36 POC Glucose 171 H Estimat Average Glucose 243 Hemoglobin A1c 10.1 H Triglycerides 352 H Cholesterol 238 H LDL Cholesterol, Calc 124 VLDL Cholesterol, Calc 70 H HDL Cholesterol 44 Cholesterol/HDL Ratio 5.4 H 06/14/23 12:25 POC Glucose 138 H Estimat Average Glucose Hemoglobin A1c Triglycerides Cholesterol LDL Cholesterol, Calc VLDL Cholesterol, Calc HDL Cholesterol Cholesterol/HDL Ratio Current Inpatient Medications Current Inpatient Medications: Current Inpatient Medications Acetaminophen (Acetaminophen 325 Mg Tab) 650 mg PO Q4H PRN PRN Reason: Headache or Minor Fever Stop: 07/13/23 12:55 Al Hydrox/Mg Hydrox/Simethicone (Aluminum/Magnesium Susp 30 Ml Udc) 30 ml PO Q4 H PRN PRN Reason: GI Upset Stop: 07/13/23 12:55 Albuterol (Albuterol Hfa 8 Gm Inhaler) 2 puffs INH Q4R PRN PRN Reason: wheezing Stop: 07/13/23 18:56 Last Admin: 06/13/23 19:43 Dose: 2 puffs Aripiprazole (Aripiprazole 1 Mg/Ml Oral Soln 150 Ml Btl) 3 mg PO HS TIMOTEO Stop: 07/13/23 21:59 Last Admin: 06/13/23 22:06 Dose: 3 mg Atorvastatin Calcium (Atorvastatin 40 Mg Tab) 40 mg PO QAM TIMOTEO Stop: 07/14/23 08:59 Last Admin: 06/14/23 08:53 Dose: 40 mg Bismuth Subsalicylate (Bismuth Subsalicylate Liqd 236 Ml) 15 ml PO PRN PRN PRN Reason: Loose Stool Stop: 07/13/23 12:55 Buspirone HCl (Buspirone 7.5 Mg Tab) 7.5 mg PO BID TIMOTEO Stop: 07/13/23 20:59 Last Admin: 06/14/23 08:53 Dose: 7.5 mg Dextrose (Dextrose 50% 50 Ml Syringe) 25 - 50 ml IV UD PRN; Protocol PRN Reason: Hypoglycemia Protocol Stop: 07/14/23 08:29 Fluticasone/Vilanterol (Fluticasone/Vilanterol 200/25mcg 14 Puffs/Inhaler) 2 puffs INH HS TIMOTEO Stop: 07/13/23 21:59 Last Admin: 06/13/23 21:44 Dose: 2 puffs Glucagon (Glucagon For Inj 1 Mg Vial) 1 mg IM UD PRN; Protocol PRN Reason: Hypoglycemia Protocol Stop: 07/14/23 08:29 Glucose (Glucose 40% Gel 15 Gm Tube) 15 - 30 gm PO UD PRN; Protocol PRN Reason: Hypoglycemia Protocol Stop: 07/14/23 08:29 Glucose (Glucose 10 Tab/Tube) 4 - 8 tab PO UD PRN; Protocol PRN Reason: Hypoglycemia Protocol Stop: 07/14/23 08:29 Hydroxyzine HCl (Hydroxyzine Hcl 25 Mg Tab) 50 mg PO HSZ PRN PRN Reason: Insomnia Stop: 07/13/23 12:55 Insulin Aspart (Insulin Aspart Per Unit Charge) 0 units SC ACHS TIMOTEO Stop: 07/14/23 08:14 Last Admin: 06/14/23 09:00 Dose: 7 units Lorazepam (Lorazepam 0.5 Mg Tab) 0.5 mg PO Q8 PRN PRN Reason: Anxiety Stop: 07/13/23 18:42 Magnesium Hydroxide (Magnesium Hydroxide Susp 30 Ml Udc) 30 ml PO DAILY PRN PRN Reason: Constipation Stop: 07/13/23 12:55 Metformin HCl (Metformin Hcl 500 Mg Tab) 500 mg PO TIDM TIMOTEO Stop: 07/13/23 17:44 Last Admin: 06/14/23 12:50 Dose: 500 mg Miscellaneous (Carbohydrates For Hypoglycemia ) 15 - 30 gm PO UD PRN PRN Reason: Hypoglycemia Treatment Stop: 07/14/23 08:29 Miscellaneous Information (Pharmacy Glycemic Mgmt Consult) 1 each N/A UD PRN; Protocol PRN Reason: Consult Stop: 07/13/23 14:28 Multivitamins (Multivitamin Tab) 1 tab PO HS TIMOTEO Stop: 07/13/23 21:59 Last Admin: 06/13/23 21:44 Dose: 1 tab Sodium Chloride (Sodium Chloride 0.65% Na Soln 45 Ml ([place])) 1 - 2 sprays NA PRN PRN PRN Reason: Nasal Dryness/Congestion Stop: 07/13/23 12:55 Venlafaxine HCl (Venlafaxine Hcl Xr 150 Mg Capxr) 150 mg PO HS TIMOTEO Stop: 07/13/23 20:59 Last Admin: 06/13/23 22:07 Dose: 150 mg Venlafaxine HCl (Venlafaxine Hcl Xr 75 Mg Capxr) 75 mg PO HS TIMOTEO Stop: 07/13/23 21:59 Last Admin: 06/13/23 22:06 Dose: 75 mg Zolpidem Tartrate (Zolpidem Tartrate 5 Mg Tab) 10 mg PO HS TIMOTEO Stop: 07/13/23 21:59 Last Admin: 06/13/23 21:52 Dose: 10 mg
--- NOTE | 2023-06-14 13:43 | Pharmacy Report ---
Pharmacy Glycemic Short Note 2 - Date of Service June 14, 2023 - Glycemic Short BSG Results (Last 24 hours): 06/14/23 06/14/23 08:36 12:25 POC Glucose 171 H 138 H OUTPATIENT ANTIDIABETIC REGIMEN: * metformin 500 mg PO TID * HbA1C = 8.1% (10/2022) -- on order for 06/14/23 ASSESSMENT: 06/14 * Patient currently on home metformin 500 mg tid * Fasting BSG 171 mg/dL - A1c is ~10%. Discussed with RN/patient and encouraged addition of novolog SSI * Will be more conservative and hold basal insulin for now. * Lunch time BSG improving with metformin/novolog - will continue 06/13 * Ms Fung is a 62 y/o F with a PMH of T2DM on metformin. HbA1C > 3 months old so ordered new value. * BSG on admission was 348 but per patient this was after a large breakfast. She also did not take her metformin this morning * Lunch BSG was 249/167 mg/dL. * Discussed with RN. Patient is agreeable to insulin but would like to attempt to manage BSGs with metformin first. RN will add ACHS checks (no Novolog ordered at this point). * Insulin to be ordered tomorrow if BSGs are elevated. PLAN FOR INPATIENT GLYCEMIC CONTROL: * metformin 500 mg PO TIDM * Basal insulin * HOLD * Bolus insulin - HOLD at this point * NovoLog per scale ACHS or Q6hrs while NPO * Goal Range: Low 110 mg/dL - High 140 mg/dL * Correction Factor: 20 mg/dL/unit * Nutritional / Prandial insulin per carb ratio of 1 unit per 8 grams CHO consumed
[2023-06-14] MEDS: LORazepam 0.5 MG TAB PO PRN (15:22)
[2023-06-14] MEDS: ALBUTEROL HFA 8 GM INHALER INH SCH (18:44)
[2023-06-14] MEDS: ZOLPIDEM TARTRATE 5 MG TAB PO SCH (21:08)
[2023-06-14] MEDS: VENLAFAXINE HCL XR 150 MG CAPXR PO SCH (21:09)
[2023-06-14] MEDS: FLUTICASONE/VILANTEROL 200/25MCG 14 PUFFS/INHALER INH SCH (21:25)
[2023-06-14] MEDS: MULTIVITAMIN TAB PO SCH (21:25)
[2023-06-14] MEDS ORDERED: ARIPIprazole 1 MG/ML ORAL SOLN 150 ML BTL PO SCH (22:00)
[2023-06-15] MEDS: ALBUTEROL HFA 8 GM INHALER INH SCH (08:05)
[2023-06-15] MEDS: metFORMIN HCL 500 MG TAB PO SCH ×3 (08:14→17:12)
[2023-06-15] MEDS: ATORVASTATIN 40 MG TAB PO SCH (08:14)
[2023-06-15] MEDS: busPIRone 7.5 MG TAB PO SCH ×2 (08:15→17:14)
[2023-06-15] MEDS: INSULIN ASPART PER UNIT CHARGE SC SCH ×4 (09:06→21:28)
--- NOTE | 2023-06-15 14:08 | Psychiatric Progress Note ---
Date of Service June 15, 2023 Impression / Recommendations Impression 62 yo female with a hx of recurring depression with anxious features since the loss of her son 10 years ago. Full med trial info not currently available but desires to change longstanding rx of Effexor XR. Patient's LFTs, glucose, and lipid profile worsening, unclear if self care/compliance vs. low dose Abilify, regardless reports no interval improvement on 3 mg vs 2 mg. 06/15/23: no change (1) Depression with anxiety: (2) Diabetes mellitus type 2, uncontrolled: (3) Elevated liver enzymes: Plan 06/15/23: risks/benefits/alternatives reviewed re: trial of Cymbalta. Add Cymbalta 20 mg in am, Abilify 2 mg this hs, with plan for additional Effexor taper. 06/14/23: The patient was admitted to the [facility] ([facility] mental health unit) on q15 min checks (behavioral with suicide precautions) for safety. The patient will participate in group, recreational, and milieu therapies and will be offered additional individual and family sessions as clinically appropriate. Risks/benefits/alternatives reviewed re: current medications, including but not limited to metabolic risks with Abilify and need for taper of Effexor XR due to discontinuation syndrome risk. Patient has hx of side effects to SSRIs and traditionally responded well to SNRI so would offer trial of Cymbalta as Effexor decreased, will discuss more in am. Decrease Effexor XR to 150 mg tonight. Inventory Assets Strengths: thoughtful, help seeking Needs: outpatient therapy/medication management, improve social activities. Suicide Risk Level Suicide Risk Level: Moderate (q15 min suicide checks) Risk Factors Assessment : Yes Do You Have Access To A Gun?: No Mental Health Diagnoses: Yes Substance Use Disorders: No Previous Attempt: No Previous Psychiatric Hospitalization: Yes Protective Factors Assessment Employed: No Interval History Identifying Information NOE GREEN is a 62-year-old F who currently lives in [place], has a history of depression/complicated grief with 1 prior inpatient stay, and was admitted on 06/13/23 12:56 on a 201 voluntary commitment for SI with plan. Chief Complaint loneliness Review of Systems Sleep Information Total Hours of Sleep: 6.5 Meal Information Percent Meal Consumed - Breakfast: 100 Percent Meal Consumed - Lunch: 100 Percent Meal Consumed - Dinner: 100 Subjective Subjective Patient was seen & assessed and interval progress reviewed with nursing and social work. juana during visiting hours. Patient states she declined visit from son as hurt they withhold her grandkids. Denies any symptoms of discontinuation syndrome at this time. Agreeable to Cymbalta trial as discussed and tapering Abilify over time. She continues to experience intermittent suicidal thoughts and although would not act on thoughts here, feels she is unable to manage at home at this time. Physical Exam Psychiatric Orientation: alert and oriented x 3 Apperance: appropriately dressed and appropriately groomed Eye Contact: good eye contact Motor Behavior: no abnormal motor movements Speech: normal rate/rhythm/volume of speech Affect: + depressed affect Mood: + depressed mood Thought Process: goal directed thought process Thought Content: reality based without delusions Suicidal Thoughts: + reports suicidal thoughts (intermittent, nonspecific) Homicidal Thoughts: denies homicidal thoughts Hallucinations: no auditory hallucinations and no visual hallucinations Cognition: attention grossly intact and language grossly intact Estimated Intelligence: consistent with education level Insight: + fair insight Vital Signs (Past 24 Hours) Last Vital Signs Temp 36.7 C 06/15/23 06:49 Pulse 79 06/15/23 08:05 Resp 16 06/15/23 08:05 BP 122/69 06/15/23 06:50 Pulse Ox 97 06/15/23 08:05 O2 Del Method Room Air 06/15/23 08:05 Results & Data ([facility]) Laboratory Results Laboratory Results - last 24 hr 06/14/23 06/14/23 06/15/23 16:56 20:24 08:08 POC Glucose 147 H 137 H 183 H 06/15/23 12:28 POC Glucose 164 H Current Inpatient Medications Current Inpatient Medications: Current Inpatient Medications Acetaminophen (Acetaminophen 325 Mg Tab) 650 mg PO Q4H PRN PRN Reason: Headache or Minor Fever Stop: 07/13/23 12:55 Al Hydrox/Mg Hydrox/Simethicone (Aluminum/Magnesium Susp 30 Ml Udc) 30 ml PO Q4H PRN PRN Reason: GI Upset Stop: 07/13/23 12:55 Albuterol (Albuterol Hfa 8 Gm Inhaler) 2 puffs INH Q4R PRN PRN Reason: wheezing Stop: 07/13/23 18:56 Last Admin: 06/13/23 19:43 Dose: 2 puffs Albuterol (Albuterol Hfa 8 Gm Inhaler) 2 puffs INH QAM TIMOTEO; Protocol Stop: 07/14/23 14:14 Last Admin: 06/15/23 08:05 Dose: 2 puffs Aripiprazole (Aripiprazole 1 Mg/Ml Oral Soln 150 Ml Btl) 2.5 mg PO HS TIMOTEO Stop: 07/14/23 21:59 Last Admin: 06/14/23 21:06 Dose: 2.5 mg Atorvastatin Calcium (Atorvastatin 40 Mg Tab) 40 mg PO QAM TIMOTEO Stop: 07/14/23 08:59 Last Admin: 06/15/23 08:14 Dose: 40 mg Bismuth Subsalicylate (Bismuth Subsalicylate Liqd 236 Ml) 15 ml PO PRN PRN PRN Reason: Loose Stool Stop: 07/13/23 12:55 Buspirone HCl (Buspirone 7.5 Mg Tab) 7.5 mg PO BIDM TIMOTEO Stop: 07/14/23 17:44 Last Admin: 06/15/23 08:15 Dose: 7.5 mg Dextrose (Dextrose 50% 50 Ml Syringe) 25 - 50 ml IV UD PRN; Protocol PRN Reason: Hypoglycemia Protocol Stop: 07/14/23 08:29 Fluticasone/Vilanterol (Fluticasone/Vilanterol 200/25mcg 14 Puffs/Inhaler) 2 puffs INH HS TIMOTEO Stop: 07/13/23 21:59 Last Admin: 06/14/23 21:25 Dose: 2 puffs Glucagon (Glucagon For Inj 1 Mg Vial) 1 mg IM UD PRN; Protocol PRN Reason: Hypoglycemia Protocol Stop: 07/14/23 08:29 Glucose (Glucose 40% Gel 15 Gm Tube) 15 - 30 gm PO UD PRN; Protocol PRN Reason: Hypoglycemia Protocol Stop: 07/14/23 08:29 Glucose (Glucose 10 Tab/Tube) 4 - 8 tab PO UD PRN; Protocol PRN Reason: Hypoglycemia Protocol Stop: 07/14/23 08:29 Hydroxyzine HCl (Hydroxyzine Hcl 25 Mg Tab) 50 mg PO HSZ PRN PRN Reason: Insomnia Stop: 07/13/23 12:55 Insulin Aspart (Insulin Aspart Per Unit Charge) 0 units SC ACHS [facility] Stop: 07/14/23 08:14 Last Admin: 06/15/23 13:13 Dose: 13 units Lorazepam (Lorazepam 0.5 Mg Tab) 0.5 mg PO Q8 PRN PRN Reason: Anxiety Stop: 07/13/23 18:42 Last Admin: 06/14/23 15:22 Dose: 0.5 mg Magnesium Hydroxide (Magnesium Hydroxide Susp 30 Ml Udc) 30 ml PO DAILY PRN PRN Reason: Constipation Stop: 07/13/23 12:55 Metformin HCl (Metformin Hcl 500 Mg Tab) 500 mg PO TIDM [place]OTEO Stop: 07/13/23 17:44 Last Admin: 06/15/23 12:30 Dose: 500 mg Miscellaneous (Carbohydrates For Hypoglycemia ) 15 - 30 gm PO UD PRN PRN Reason: Hypoglycemia Treatment Stop: 07/14/23 08:29 Miscellaneous Information (Pharmacy Glycemic Mgmt Consult) 1 each N/A UD PRN; Protocol PRN Reason: Consult Stop: 07/13/23 14:28 Multivitamins (Multivitamin Tab) 1 tab PO HS TIMOTEO Stop: 07/13/23 21:59 Last Admin: 06/14/23 21:25 Dose: 1 tab Sodium Chloride (Sodium Chloride 0.65% Na Soln 45 Ml ([place])) 1 - 2 sprays NA PRN PRN PRN Reason: Nasal Dryness/Congestion Stop: 07/13/23 12:55 Venlafaxine HCl (Venlafaxine Hcl Xr 150 Mg Capxr) 150 mg PO HS TIMOTEO Stop: 07/13/23 20:59 Last Admin: 06/14/23 21:09 Dose: 150 mg Zolpidem Tartrate (Zolpidem Tartrate 5 Mg Tab) 10 mg PO HS TIMOTEO Stop: 07/13/23 21:59 Last Admin: 06/14/23 21:08 Dose: 10 mg Mental Health & Subst Abuse Tx Therapist Name of Therapist: Lorenza Wise, X [employer]IC[employer], CCTP Therapist's Date of Therapist Appointment: Lorenza Wise Therapy Appointment Comment: [address] [place] [facility] [address] Post Discharge Appointments Primary Care Physician Name Of Family Doctor/PCP: HOWIE Obregon Primary Care Date of Future Appointment with PCP: 07/08/2023 Time of Appointment with PCP: 2:00pm Provider Appointment Comment: [address] [place] [address]
[2023-06-15] MEDS: DULoxetine HCL 20 MG CAP PO SCH (14:47)
[2023-06-15] MEDS: LORazepam 0.5 MG TAB PO PRN (19:15)
[2023-06-15] MEDS: FLUTICASONE/VILANTEROL 200/25MCG 14 PUFFS/INHALER INH SCH (21:30)
[2023-06-15] MEDS: MULTIVITAMIN TAB PO SCH (21:31)
[2023-06-15] MEDS: ZOLPIDEM TARTRATE 5 MG TAB PO SCH (21:33)
[2023-06-15] MEDS: VENLAFAXINE HCL XR 150 MG CAPXR PO SCH (21:34)
[2023-06-15] MEDS ORDERED: ARIPIprazole 1 MG/ML ORAL SOLN 150 ML BTL PO SCH (22:00)
[2023-06-16] MEDS: INSULIN ASPART PER UNIT CHARGE SC SCH ×4 (08:41→21:17)
[2023-06-16] MEDS: ALBUTEROL HFA 8 GM INHALER INH SCH (08:47)
[2023-06-16] MEDS: busPIRone 7.5 MG TAB PO SCH ×2 (08:48→17:45)
[2023-06-16] MEDS: DULoxetine HCL 20 MG CAP PO SCH (08:48)
[2023-06-16] MEDS: metFORMIN HCL 500 MG TAB PO SCH ×3 (08:48→17:45)
[2023-06-16] MEDS: ATORVASTATIN 40 MG TAB PO SCH (08:48)
--- NOTE | 2023-06-16 11:03 | Pharmacy Report ---
Pharmacy Glycemic Short Note 2 - Date of Service June 16, 2023 - Glycemic Short BSG Results (Last 24 hours): 06/15/23 06/15/23 06/15/23 12:28 17:03 20:31 POC Glucose 164 H 119 H 156 H 06/16/23 08:00 POC Glucose 173 H OUTPATIENT ANTIDIABETIC REGIMEN: * Metformin 500 mg PO TID * HbA1c = 10.1% (06/14/23) ASSESSMENT: 06/16 * BSGs have been relatively well-controlled (119-183 mg/dL past 24 hours). * Pt has been requiring ~30 units of insulin on top of her metformin TID. Suspect that pt would benefit from once daily basal insulin, if able. * Recommend CDE consult. 06/14 * Patient currently on home metformin 500 mg tid * Fasting BSG 171 mg/dL - A1c is ~10%. Discussed with RN/patient and encouraged addition of novolog SSI * Will be more conservative and hold basal insulin for now. * Lunch time BSG improving with metformin/novolog - will continue 06/13 * Ms Fung is a 62 y/o F with a PMH of T2DM on metformin. HbA1C > 3 months old so ordered new value. * BSG on admission was 348 but per patient this was after a large breakfast. She also did not take her metformin this morning * Lunch BSG was 249/167 mg/dL. * Discussed with RN. Patient is agreeable to insulin but would like to attempt to manage BSGs with metformin first. RN will add ACHS checks (no Novolog ordered at this point). * Insulin to be ordered tomorrow if BSGs are elevated. PLAN FOR INPATIENT GLYCEMIC CONTROL: * Metformin 500 mg PO TIDM * Basal insulin * HOLD -- consider adding for discharge * Bolus insulin - * NovoLog per scale ACHS or Q6hrs while NPO * Goal Range: Low 110 mg/dL - High 140 mg/dL * Correction Factor: 25 mg/dL/unit * Nutritional / Prandial insulin per carb ratio of 1 unit per 8 grams CHO consumed
--- NOTE | 2023-06-16 15:34 | Psychiatric Progress Note ---
Date of Service June 16, 2023 Impression / Recommendations Impression 62 yo female with a hx of recurring depression with anxious features since the loss of her son 10 years ago. Full med trial info not currently available but desires to change longstanding rx of Effexor XR. Patient's LFTs, glucose, and lipid profile worsening, unclear if self care/compliance vs. low dose Abilify, regardless reports no interval improvement on 3 mg vs 2 mg. 06/16/23: slow improvement (1) Depression with anxiety: (2) Diabetes mellitus type 2, uncontrolled: (3) Elevated liver enzymes: Plan 06/16/23: decrease Effexor XR to 75 mg daily, increase Cymbalta to 30 mg in am, d/c Abilify. Will consult [facility] hospitalist (PCP Dr. Obregon) for discharge recs re: glucose management (+/- insulin) and hypertriglyceridemia. 06/15/23: risks/benefits/alternatives reviewed re: trial of Cymbalta. Add Cymbalta 20 mg in am, Abilify 2 mg this hs, with plan for additional Effexor taper. 06/14/23: The patient was admitted to the [facility] ([facility] mental health unit) on q15 min checks (behavioral with suicide precautions) for safety. The patient will participate in group, recreational, and milieu therapies and will be offered additional individual and family sessions as clinically appropriate. Risks/benefits/alternatives reviewed re: current medications, including but not limited to metabolic risks with Abilify and need for taper of Effexor XR due to discontinuation syndrome risk. Patient has hx of side effects to SSRIs and traditionally responded well to SNRI so would offer trial of Cymbalta as Effexor decreased, will discuss more in am. Decrease Effexor XR to 150 mg tonight. Inventory Assets Strengths: thoughtful, help seeking Needs: outpatient therapy/medication management, improve social activities. Suicide Risk Level Suicide Risk Level: Moderate (q15 min suicide checks) Risk Factors Assessment : Yes Do You Have Access To A Gun?: No Mental Health Diagnoses: Yes Substance Use Disorders: No Previous Attempt: No Previous Psychiatric Hospitalization: Yes Protective Factors Assessment Employed: No Interval History Identifying Information NOE GREEN is a 62-year-old F who currently lives in [place], has a history of depression/complicated grief with 1 prior inpatient stay, and was admitted on 06/13/23 12:56 on a 201 voluntary commitment for SI with plan. Chief Complaint "I feel a little better but not sure about home." Review of Systems Sleep Information Total Hours of Sleep: 6.5 Meal Information Percent Meal Consumed - Breakfast: 100 Percent Meal Consumed - Lunch: 100 Percent Meal Consumed - Dinner: 100 Subjective Subjective Patient was seen & assessed and interval progress reviewed with treatment team. Patient denies any physical complaints. She is still considering who to involve in family meeting. Discussed having used insulin in past as requiring insulin here. Reviewed metabolic profile of Abilify and limited efficacy, patient agreeable to d/c at this point. Physical Exam Psychiatric Orientation: alert and oriented x 3 Apperance: appropriately dressed and appropriately groomed Eye Contact: good eye contact Motor Behavior: no abnormal motor movements Speech: normal rate/rhythm/volume of speech Affect: + depressed affect Mood: + depressed mood Thought Process: goal directed thought process Thought Content: reality based without delusions Suicidal Thoughts: denies suicidal thoughts Homicidal Thoughts: denies homicidal thoughts Hallucinations: no auditory hallucinations and no visual hallucinations Cognition: attention grossly intact and language grossly intact Estimated Intelligence: consistent with education level Insight: + fair insight Vital Signs (Past 24 Hours) Last Vital Signs Temp 36.6 C 06/16/23 06:40 Pulse 92 H 06/16/23 06:41 Resp 16 06/16/23 06:40 BP 126/84 06/16/23 06:41 Pulse Ox 97 06/15/23 08:05 O2 Del Method Room Air 06/15/23 08:05 Results & Data ([facility]) Laboratory Results Laboratory Results - last 24 hr 06/15/23 06/15/23 06/16/23 17:03 20:31 08:00 POC Glucose 119 H 156 H 173 H 06/16/23 11:38 POC Glucose 196 H Current Inpatient Medications Current Inpatient Medications: Current Inpatient Medications Acetaminophen (Acetaminophen 325 Mg Tab) 650 mg PO Q4H PRN PRN Reason: Headache or Minor Fever Stop: 07/13/23 12:55 Al Hydrox/Mg Hydrox/Simethicone (Aluminum/Magnesium Susp 30 Ml Udc) 30 ml PO Q4H PRN PRN Reason: GI Upset Stop: 07/13/23 12:55 Albuterol (Albuterol Hfa 8 Gm Inhaler) 2 puffs INH Q4R PRN PRN Reason: wheezing Stop: 07/13/23 18:56 Last Admin: 06/13/23 19:43 Dose: 2 puffs Albuterol (Albuterol Hfa 8 Gm Inhaler) 2 puffs INH QAM TIMOTEO; Protocol Stop: 07/14/23 14:14 Last Admin: 06/16/23 08:47 Dose: 2 puffs Atorvastatin Calcium (Atorvastatin 40 Mg Tab) 40 mg PO QAM TIMOTEO Stop: 07/14/23 08:59 Last Admin: 06/16/23 08:48 Dose: 40 mg Bismuth Subsalicylate (Bismuth Subsalicylate Liqd 236 Ml) 15 ml PO PRN PRN PRN Reason: Loose Stool Stop: 07/13/23 12:55 Buspirone HCl (Buspirone 7.5 Mg Tab) 7.5 mg PO BIDM TIMOTEO Stop: 07/14/23 17:44 Last Admin: 06/16/23 08:48 Dose: 7.5 mg Dextrose (Dextrose 50% 50 Ml Syringe) 25 - 50 ml IV UD PRN; Protocol PRN Reason: Hypoglycemia Protocol Stop: 07/14/23 08:29 Duloxetine HCl (Duloxetine Hcl 30 Mg Cap) 30 mg PO QAM TIMOTEO Stop: 07/17/23 08:59 Fluticasone/Vilanterol (Fluticasone/Vilanterol 200/25mcg 14 Puffs/Inhaler) 2 puffs INH HS TIMOTEO Stop: 07/13/23 21:59 Last Admin: 06/15/23 21:30 Dose: 2 puffs Glucagon (Glucagon For Inj 1 Mg Vial) 1 mg IM UD PRN; Protocol PRN Reason: Hypoglycemia Protocol Stop: 07/14/23 08:29 Glucose (Glucose 40% Gel 15 Gm Tube) 15 - 30 gm PO UD PRN; Protocol PRN Reason: Hypoglycemia Protocol Stop: 07/14/23 08:29 Glucose (Glucose 10 Tab/Tube) 4 - 8 tab PO UD PRN; Protocol PRN Reason: Hypoglycemia Protocol Stop: 07/14/23 08:29 Hydroxyzine HCl (Hydroxyzine Hcl 25 Mg Tab) 50 mg PO HSZ PRN PRN Reason: Insomnia Stop: 07/13/23 12:55 Insulin Aspart (Insulin Aspart Per Unit Charge) 0 units SC [facility]S [facility] Stop: 07/14/23 08:14 Last Admin: 06/16/23 12:40 Dose: 12 units Lorazepam (Lorazepam 0.5 Mg Tab) 0.5 mg PO Q8 PRN PRN Reason: Anxiety Stop: 07/13/23 18:42 Last Admin: 06/15/23 19:15 Dose: 0.5 mg Magnesium Hydroxide (Magnesium Hydroxide Susp 30 Ml Udc) 30 ml PO DAILY PRN PRN Reason: Constipation Stop: 07/13/23 12:55 Metformin HCl (Metformin Hcl 500 Mg Tab) 500 mg PO TIDM TIMOTEO Stop: 07/13/23 17:44 Last Admin: 06/16/23 12:32 Dose: 500 mg Miscellaneous (Carbohydrates For Hypoglycemia ) 15 - 30 gm PO UD PRN PRN Reason: Hypoglycemia Treatment Stop: 07/14/23 08:29 Miscellaneous Information (Pharmacy Glycemic Mgmt Consult) 1 each N/A UD PRN; Protocol PRN Reason: Consult Stop: 07/13/23 14:28 Multivitamins (Multivitamin Tab) 1 tab PO HS TIMOTEO Stop: 07/13/23 21:59 Last Admin: 06/15/23 21:31 Dose: 1 tab Sodium Chloride (Sodium Chloride 0.65% Na Soln 45 Ml ([place])) 1 - 2 sprays NA PRN PRN PRN Reason: Nasal Dryness/Congestion Stop: 07/13/23 12:55 Venlafaxine HCl (Venlafaxine Hcl Xr 75 Mg Capxr) 75 mg PO HS TIMOTEO Stop: 07/16/23 21:59 Zolpidem Tartrate (Zolpidem Tartrate 5 Mg Tab) 10 mg PO HS TIMOTEO Stop: 07/13/23 21:59 Last Admin: 06/15/23 21:33 Dose: 10 mg Mental Health & Subst Abuse Tx Psychiatrist Name of Psychiatrist: Maggie Spaulding PA-C Psychiatrist's Date Of Appointment With Psychiatric Provider: 07/15/23 Time of Appointment with Psychiatrist: 10 AM Psychiatric Appointment Comment: [address] [place] [address] Therapist Name of Therapist: Lorenza Wise LCSW, CCTP Therapist's Date of Therapist Appointment: 06/19/23 Time of Therapist Appointment: 12:15 PM Therapy Appointment Comment: [address], [place] [address] Sales Specialist Name of Sales Specialist: [facility] Phone Number for Sales Specialist: [phone] Case Management Appointment Comment: A blended shelter case manager will contact you directly to schedule intake. Post Discharge Appointments Primary Care Physician Name Of Family Doctor/PCP: HOWIE Obregon Primary Care Date of Future Appointment with PCP: 07/08/2023 Time of Appointment with PCP: 2:00pm Provider Appointment Comment: [address], [place] [address] Contact Information Discharge Discharge Address: [address], [place] [address]
[2023-06-16] MEDS: LORazepam 0.5 MG TAB PO PRN (16:09)
--- NOTE | 2023-06-16 18:13 | Hospitalist Consultation ---
Date of Consultation June 16, 2023 Assessment & Plan (1) Diabetes mellitus type 2, uncontrolled: Type 2 diabetes mellitus 06/14/2023 A1c 10.1. No hx CHF. Previously well controlled, average daily BSG's were [id number] which then ana m to 300s when starting Abilify. Had been on Lantus 7 units for around 3 months and then tapered off due to good control Tolerates 1500mg metformin given as 100 mg 3 times daily Recommend converting metformin to 1000 mg extended release twice daily to maximize at 2 g total daily dose Patient would benefit from Ozempic or Mounjaro and has the secondary benefit of weight loss however this has been difficult with her insurance in the past.? Whether she would qualify with the criteria for uncontrolled diabetes with A1c over 10. In any case on further history some concern of potential thyroid cancer in her mother, low suspicion that this is C-cell tumor but patient is not sure whether this was a overactive thyroid or some form of cancer. Would clarify this if possible first. In lieu of this recommend starting Jardiance 10 mg once daily, may uptitrate this to a total of 25 mg daily if well-tolerated. Follow closely for recurrent UTIs, no history of this if these develop this will have to be stopped and switch to an alternative. Given that her A1c was well controlled and she was able to be tapered off of Lantus as outpatient with good control suspect that she will not need long-term insulin now that her Abilify has been stopped. Reasonable to send patient with a 1 month prescription for Lantus 5 units daily to suppress hepatic gluconeogenesis and check blood sugars daily, if these are consistently low then this can be stopped. Patient should check blood sugar at least once daily, and randomly throughout the day if she has any symptoms of hypoglycemia or vision change -Recommend following with [facility] for close follow-up and titration of medications as required Summary: Discharged with Lantus 5 units daily, Jardiance 10 units daily with increase to up to 1:25 month if well-tolerated, and increase metformin to extended release 1000 mg twice daily. Follow-up as outpatient and to clarify family history, if no history of thyroid cancer and able to obtain preauth then would switch Jardiance to Mounjaro/Ozempic insurance permitting for secondary benefit of weight loss. Daily blood sugar checks, if lower consistently below 120 can discontinue Lantus and continue to follow blood sugars. - Abilify discontinued Hypertriglyceridemia: - 06/04 lipid panel: Triglycerides 352, cholesterol 238, LDL 124, VLDL 70 [place]-3 fatty acids added, continue this on discharge. if uptrending/increases to the 500s then add fibrate as outpatient. (2) Essential hypertension: (3) Hyperlipidemia: History of Present Illness Attending Physician: Brandie Call MD History of Present Illness Fiona is a 62-year-old female with a past medical history of hyperlipidemia, type 2 diabetes mellitus, transaminitis, and depression with anxiety currently on U for recurring depression with anxious features since the loss of her son 10 years ago which worsened following the of her fianc during COVID. She has had worsened type II DM control with hyperlipidemia and hypertriglyceridemia, we are consulted for DM/HLD recommendations. Bernice reports she has a long history of type 2 diabetes, previously well contr olled. She reports she was on insulin for around 3 months 1 year ago with average blood sugars 120s and was able to transition off of this. Following this. Her blood sugars remain good around 120s checking once a day, however they worsened significantly after starting Abilify which with no dietary change caused her blood sugars to rise into the 300s regularly. Last A1c was greater than 10 in the setting. She reports she is on metformin 1500 mg/day, takes this as 500 3 times daily and had no problems with diarrhea. She reports that she thinks she was going to be started on Ozempic at 1 point but had difficulty with insurance coverage at the time. No known thyroid problems, her mother did have her thyroid out but is unclear if this was hyperthyroid or a form of thyroid cancer she reports a history of NH in her father who passed from an NH in his 90s, is not sure the age of his first heart problem but somewhere around 60s, no CVA. History of DM2 in her paternal uncles. She has not had hypoglycemic episodes. Abilify has been Medical History: Reviewed Medications: Reviewed Surgical History: Reviewed Family history: Reviewed Allergies: Reviewed Social History: No tobacco/etoh use Code Status: Full Code Allergies Allergy/AdvReac Type Severity Reaction Status Date / Time codeine Allergy Unknown RASH - PER Verified 06/13/23 10:31 DR BAJWA, PT HAS HAD MORPHINE IN PAST Home Medications Medication Instructions Recorded Confirmed Type multivitamin (One-A-Day Essential 1 tab PO HS 05/03/19 06/13/23 History tablet) blood sugar diagnostic (OneTouch 03/19/21 04/18/23 History Verio test strips) lancets 33 gauge (BD Ultra Fine 03/19/21 04/18/23 History Lancets) metformin 500 mg tablet 500 mg PO TID #90 tabs 02/14/23 06/13/23 Rx atorvastatin 40 mg tablet 40 mg PO HS #30 tabs 03/18/23 06/13/23 Rx buspirone 7.5 mg tablet 7.5 mg PO BID #180 tabs 04/10/23 06/13/23 Rx albuterol sulfate 90 mcg/actuation 2 puff inhalation QAM #8.5 grams 05/05/23 06/13/23 Rx aerosol inhaler (Ventolin HFA) venlafaxine 150 mg 150 mg PO HS #90 caps 05/09/23 06/13/23 Rx capsule,extended release 24 hr (Effexor XR) venlafaxine 75 mg capsule,extended 75 mg PO HS #90 caps 05/09/23 06/13/23 Rx release 24 hr (Effexor XR) lorazepam 0.5 mg tablet 0.5 mg PO BID PRN anxiety #60 tabs 05/15/23 06/13/23 Rx zolpidem 10 mg tablet 10 mg PO HS #30 tabs 06/09/23 06/13/23 Rx fluticasone furoate 200 1 inh inhalation BID 06/13/23 06/14/23 History mcg-vilanterol 25 mcg/dose inhalation powder aripiprazole 2 mg tablet (Abilify) 2 mg PO HS 06/14/23 06/14/23 History Patient History Medical History Anxiety and depression Asthma inh prn Endometriosis History of COVID-19 10/2021, [facility] test, not hosp; headache, chills>resolved. Nausea and vomiting after administration of anesthetic agent "been ok with recent experiences w/anesthesia" Suicidal ideation hx Surgical History H/O colonoscopy History of cholecystectomy History of dilation and curettage History of esophagogastroduodenoscopy (EGD) History of hysteroscopy History of laparoscopy History of total abdominal hysterectomy w/bilat. tubes and ovaries Hx of hernia repair Family History Father Lymphoma Acute myocardial infarction Diabetes Myocardial infarction Son Chronic liver disease Denies family history of Ovarian cancer Prostate cancer Breast cancer Colorectal cancer Social History Smoking Status: Never smoker Second Hand Exposure: Yes (mother smoked); Do You Dip or Chew Tobacco: No; Hx Alcohol Use: Yes Alcohol type: hard liquor Hx Substance Use: No Preferred Language: Albanian Communication Ability: Effective Visual Impairment: No Limitations Hearing Ability: Normal Hospitality Workers Required: No Beliefs That Will Affect Care: None marital status: Current Living Situation: Alone current occupational status: employed current occupation: medical billing Feels Safe at Home: Yes Childhood Exposure to Second-Hand Smoke: Yes Dental Care, Regularly: Yes Physical Activity Frequency: Daily Seatbelt Use: always Sunscreen Use: No Gender Identity: Female Assistive Devices: None Physical Exam Physical Exam: General: A&Ox3. NAD. Cooperative. HEENT: Atraumatic, normocephalic. Vision/hearing intact Pulm: CTAB A&P. -wheezes, -rales, -rhonchi. Symmetrical chest rise. No increased work of breathing. No respiratory distress. Cardiac: RRR, -mrg. Radial pulses intact and symmetrical. Abdominal: Nontender, nondistended, soft. BS present. Results & Data Results & Data Vital Signs (Past 12 Hours) Vital Signs Temp Pulse Resp BP 06/16/23 06:41 92 H 126/84 06/16/23 06:40 36.6 C 80 16 146/88 H PG Care Time/CCT Total # of Minutes Spent Total Time Spent with Patient: Total time spent is greater than 50% in coordination of care (as documented) at patient's floor/unit and/or counseling patient: Coding Level of Care Code 83622 IN/OBS CONSULT LVL 3,45M Diagnoses Diabetes mellitus type 2, uncontrolled Essential hypertension I10 Hyperlipidemia E78.5
[2023-06-16] MEDS: OMEGA-3 (PURIFIED FISH OIL) 1 GM CAP PO SCH (21:05)
[2023-06-16] MEDS: FLUTICASONE/VILANTEROL 200/25MCG 14 PUFFS/INHALER INH SCH (21:06)
[2023-06-16] MEDS: MULTIVITAMIN TAB PO SCH (21:07)
[2023-06-16] MEDS: VENLAFAXINE HCL XR 75 MG CAPXR PO SCH (21:09)
[2023-06-16] MEDS: ZOLPIDEM TARTRATE 5 MG TAB PO SCH (21:11)
[2023-06-17] MEDS: ALBUTEROL HFA 8 GM INHALER INH SCH (08:54)
[2023-06-17] MEDS: ATORVASTATIN 40 MG TAB PO SCH (08:55)
[2023-06-17] MEDS: DULoxetine HCL 30 MG CAP PO SCH (08:56)
[2023-06-17] MEDS: busPIRone 7.5 MG TAB PO SCH ×2 (08:56→18:04)
[2023-06-17] MEDS: OMEGA-3 (PURIFIED FISH OIL) 1 GM CAP PO SCH ×2 (08:56→21:28)
[2023-06-17] MEDS: metFORMIN HCL ER 500 MG TABCR PO SCH ×2 (08:57→18:05)
[2023-06-17] MEDS: LANTUS PER UNIT CHARGE SC SCH (09:33)
[2023-06-17] MEDS: INSULIN ASPART PER UNIT CHARGE SC SCH ×4 (09:33→21:35)
[2023-06-17] MEDS: EMPAGLIFLOZIN 10 MG TAB PO SCH (13:21)
--- NOTE | 2023-06-17 13:55 | Pharmacy Report ---
Pharmacy Glycemic Short Note 2 - Date of Service June 17, 2023 - Glycemic Short BSG Results (Last 24 hours): 06/16/23 06/16/23 06/17/23 16:53 20:49 08:49 POC Glucose 144 H 240 H 194 H 06/17/23 13:06 POC Glucose 176 H OUTPATIENT ANTIDIABETIC REGIMEN: * Metformin 500 mg PO TID * HbA1c = 10.1% (06/14/23) ASSESSMENT: 06/17 * Changes initiated today to prepare for transition to outpatient regimen (as recommended by provider): * Low-dose Lantus started this morning * Metformin changed to extended-release tabs, 1gm PO BID * Jardiance 10mg daily added per provider. * Novolog parameters were loosened with the addition of new agents to regimen -- may require further adjustment as new agents reach steady-state. * Will continue to follow and adjust regimen as indicated. 06/16 * BSGs have been relatively well-controlled (119-183 mg/dL past 24 hours). * Pt has been requiring ~30 units of insulin on top of her metformin TID. Suspect that pt would benefit from once daily basal insulin, if able. * Recommend CDE consult. 06/14 * Patient currently on home metformin 500 mg tid * Fasting BSG 171 mg/dL - A1c is ~10%. Discussed with RN/patient and encouraged addition of novolog SSI * Will be more conservative and hold basal insulin for now. * Lunch time BSG improving with metformin/novolog - will continue 06/13 * Ms Fung is a 62 y/o F with a PMH of T2DM on metformin. HbA1C > 3 months old so ordered new value. * BSG on admission was 348 but per patient this was after a large breakfast. She also did not take her metformin this morning * Lunch BSG was 249/167 mg/dL. * Discussed with RN. Patient is agreeable to insulin but would like to attempt to manage BSGs with metformin first. RN will add ACHS checks (no Novolog ordered at this point). * Insulin to be ordered tomorrow if BSGs are elevated. PLAN FOR INPATIENT GLYCEMIC CONTROL: * Metformin ER 1000 mg PO BIDM * Basal insulin * Lantus 5 units SQ daily * Bolus insulin - * NovoLog per scale ACHS or Q6hrs while NPO * Goal Range: Low 110 mg/dL - High 140 mg/dL * Correction Factor: 30 mg/dL/unit * Nutritional / Prandial insulin per carb ratio of 1 unit per 10 grams CHO consumed
--- NOTE | 2023-06-17 16:18 | Psychiatric Consultation ---
Date of Consultation June 17, 2023 Impression / Recommendations Impression 62 yo female with a hx of recurring depression with anxious features since the loss of her son 10 years ago. Full med trial info not currently available but desires to change longstanding rx of Effexor XR. Patient's LFTs, glucose, and lipid profile worsening, unclear if self care/compliance vs. low dose Abilify, regardless reports no interval improvement on 3 mg vs 2 mg. 06/16/23: slow improvement (1) Depression with anxiety: (2) Diabetes mellitus type 2, uncontrolled: (3) Elevated liver enzymes: Plan 06/16/23: decrease Effexor XR to 75 mg daily, increase Cymbalta to 30 mg in am, d/c Abilify. Will consult [facility] hospitalist (PCP Dr. Obregon) for discharge recs re: glucose management (+/- insulin) and hypertriglyceridemia. 06/15/23: risks/benefits/alternatives reviewed re: trial of Cymbalta. Add Cymbalta 20 mg in am, Abilify 2 mg this hs, with plan for additional Effexor taper. 06/14/23: The patient was admitted to the [facility] ([facility] mental health unit) on q15 min checks (behavioral with suicide precautions) for safety. The patient will participate in group, recreational, and milieu therapies and will be offered additional individual and family sessions as clinically appropriate. Risks/benefits/alternatives reviewed re: current medications, including but not limited to metabolic risks with Abilify and need for taper of Effexor XR due to discontinuation syndrome risk. Patient has hx of side effects to SSRIs and traditionally responded well to SNRI so would offer trial of Cymbalta as Effexor decreased, will discuss more in am. Decrease Effexor XR to 150 mg tonight. Psych History Chief Complaint "[]". History of Present Illness Patient states that since last contact she has continued to grieve the of her son. She did divorce and dated a man for 5 years and was engaged to him when he unfortunately due to COVID. She reports being laid off from work about 8 months ago and thought that would be "good but then it wasn't." She has been increasingly lonely the past month with lack of interest and motivation in things. She is considering giving her dog to an interested family as although she is meeting his needs, she doesn't feel attached "the way I should." She also does recognize this would be less companionship but "spirals" as also thinks about visiting friends which is difficult when has to be home for the pet. She has taken Effexor XR for years and just doesn't feel it's working as well. That said, had a consult with Dr. Kearney through [facility] in past and was started on Abilify with little perceived benefit. Her blood sugars are not as good lately and she isn't sure why, timing doesn't necessarily coincide with med change. Yesterday was the anniversary of her son's and it was "all too much" and that is why she decided to come to ED when had thoughts of OD on Ambien. She doesn't want to act on those thoughts as Ambien is the "only" thing that has helped her to sleep. Past Psychiatric History Current Psychiatric Diagnosis: depression, PTSD Do You Have Access To A Gun?: No History of Previous Suicide Attempt: No Allergies Allergy/AdvReac Type Severity Reaction Status Date / Time codeine Allergy Unknown RASH - PER Verified 06/13/23 10:31 DR BAJWA, PT HAS HAD MORPHINE IN PAST Home Medications Medication Instructions Recorded Confirmed Type multivitamin (One-A-Day Essential 1 tab PO HS 05/03/19 06/13/23 History tablet) blood sugar diagnostic (OneTouch 03/19/21 04/18/23 History Verio test strips) lancets 33 gauge (BD Ultra Fine 03/19/21 04/18/23 History Lancets) metformin 500 mg tablet 500 mg PO TID #90 tabs 02/14/23 06/13/23 Rx atorvastatin 40 mg tablet 40 mg PO HS #30 tabs 03/18/23 06/13/23 Rx buspirone 7.5 mg tablet 7.5 mg PO BID #180 tabs 04/10/23 06/13/23 Rx albuterol sulfate 90 mcg/actuation 2 puff inhalation QAM #8.5 grams 05/05/23 06/13/23 Rx aerosol inhaler (Ventolin HFA) venlafaxine 150 mg 150 mg PO HS #90 caps 05/09/23 06/13/23 Rx capsule,extended release 24 hr (Effexor XR) venlafaxine 75 mg capsule,extended 75 mg PO HS #90 caps 05/09/23 06/13/23 Rx release 24 hr (Effexor XR) lorazepam 0.5 mg tablet 0.5 mg PO BID PRN anxiety #60 tabs 05/15/23 06/13/23 Rx zolpidem 10 mg tablet 10 mg PO HS #30 tabs 06/09/23 06/13/23 Rx fluticasone furoate 200 1 inh inhalation BID 06/13/23 06/14/23 History mcg-vilanterol 25 mcg/dose inhalation powder aripiprazole 2 mg tablet (Abilify) 2 mg PO HS 06/14/23 06/14/23 History Patient History Medical History Anxiety and depression Asthma inh prn Endometriosis History of COVID-19 10/2021, [facility] test, not hosp; headache, chills>resolved. Nausea and vomiting after administration of anesthetic agent "been ok with recent experiences w/anesthesia" Suicidal ideation hx Surgical History H/O colonoscopy History of cholecystectomy History of dilation and curettage History of esophagogastroduodenoscopy (EGD) History of hysteroscopy History of laparoscopy History of total abdominal hysterectomy w/bilat. tubes and ovaries Hx of hernia repair Family History Father Lymphoma Acute myocardial infarction Diabetes Myocardial infarction Son Chronic liver disease Denies family history of Ovarian cancer Prostate cancer Breast cancer Colorectal cancer Social History Smoking Status: Never smoker Second Hand Exposure: Yes (mother smoked); Do You Dip or Chew Tobacco: No; Hx Alcohol Use: Yes Alcohol type: hard liquor Hx Substance Use: No Preferred Language: Irish Communication Ability: Effective Visual Impairment: No Limitations Hearing Ability: Normal Nut Grader Required: No Beliefs That Will Affect Care: None marital status: Current Living Situation: Alone current occupational status: employed current occupation: medical billing Feels Safe at Home: Yes Childhood Exposure to Second-Hand Smoke: Yes Dental Care, Regularly: Yes Physical Activity Frequency: Daily Seatbelt Use: always Sunscreen Use: No Gender Identity: Female Assistive Devices: None Physical Exam Psychiatric: Orientation: alert and oriented x 3 Apperance: appropriately dressed and appropriately groomed Eye Contact: good eye contact Motor Behavior: no abnormal motor movements Speech: normal rate/rhythm/volume of speech Affect: + depressed affect Mood: + depressed mood Thought Process: goal directed thought process Thought Content: reality based without delusions Suicidal Thoughts: denies suicidal thoughts Homicidal Thoughts: denies homicidal thoughts Hallucinations: no auditory hallucinations and no visual hallucinations Cognition: attention grossly intact and language grossly intact Estimated Intelligence: consistent with education level Insight: + fair insight Vital Signs (Past 24 Hours): Last Vital Signs Temp 36.7 C 06/17/23 06:47 Pulse 89 06/17/23 06:47 Resp 16 06/17/23 06:47 BP 129/87 06/17/23 06:47 Pulse Ox 97 06/15/23 08:05 O2 Del Method Room Air 06/15/23 08:05 Results & Data (PSY) Medications Administered Albuterol (Albuterol Hfa 8 Gm Inhaler) 2 puffs INH Q4R PRN PRN Reason: wheezing Stop: 07/13/23 18:56 Last Admin: 06/13/23 19:43 Dose: 2 puffs Documented By: LOWELL Albuterol (Albuterol Hfa 8 Gm Inhaler) 2 puffs INH QAM COUNTS INCLUDE 234 BEDS AT THE [facility]; Protocol Stop: 07/14/23 14:14 Last Admin: 06/17/23 08:54 Dose: 2 puffs Documented By: Admin: 06/16/23 08:47 Dose: 2 puffs Documented By: Admin: 06/15/23 08:05 Dose: 2 puffs Documented By: Admin: 06/14/23 18:44 Dose: Not Given Documented By: PURNIMA Atorvastatin Calcium (Atorvastatin 40 Mg Tab) 40 mg PO QAM TIMOTEO Stop: 07/14/23 08:59 Last Admin: 06/17/23 08:55 Dose: 40 mg Documented By: Admin: 06/16/23 08:48 Dose: 40 mg Documented By: Admin: 06/15/23 08:14 Dose: 40 mg Documented By: Admin: 06/14/23 08:53 Dose: 40 mg Documented By: JANETH Buspirone HCl (Buspirone 7.5 Mg Tab) 7.5 mg PO BIDM TIMOTEO Stop: 07/14/23 17:44 Last Admin: 06/17/23 08:56 Dose: 7.5 mg Documented By: Admin: 06/16/23 17:45 Dose: 7.5 mg Documented By: Admin: 06/16/23 08:48 Dose: 7.5 mg Documented By: Admin: 06/15/23 17:14 Dose: 7.5 mg Documented By: Admin: 06/15/23 08:15 Dose: 7.5 mg Documented By: Admin: 06/14/23 18:41 Dose: 7.5 mg Documented By: PURNIMA Duloxetine HCl (Duloxetine Hcl 30 Mg Cap) 30 mg PO QAM TIMOTEO Stop: 07/17/23 08:59 Last Admin: 06/17/23 08:56 Dose: 30 mg Documented By: COLTT Empagliflozin (Empagliflozin 10 Mg Tab) 10 mg PO DAILY TIMOTEO Stop: 07/17/23 10:59 Last Admin: 06/17/23 13:21 Dose: 10 mg Documented By: KELVIN Fish Oil ([place]-3 (Purified Fish Oil) 1 Gm Cap) 1 gm PO BID TIMOTEO Stop: 07/16/23 20:59 Last Admin: 06/17/23 08:56 Dose: 1 gm Documented By: Admin: 06/16/23 21:05 Dose: 1 gm Documented By: DREW Fluticasone/Vilanterol (Fluticasone/Vilanterol 200/25mcg 14 Puffs/Inhaler) 2 puffs INH HS TIMOTEO Stop: 07/13/23 21:59 Last Admin: 06/16/23 21:06 Dose: 2 puffs Documented By: Admin: 06/15/23 21:30 Dose: 2 puffs Documented By: Admin: 06/14/23 21:25 Dose: 2 puffs Documented By: Admin: 06/13/23 21:44 Dose: 2 puffs Documented By: PURNIMA Insulin Aspart (Insulin Aspart Per Unit Charge) 0 units SC ACHS TIMOTEO Stop: 07/14/23 08:14 Last Admin: 06/17/23 13:20 Dose: 9 units Documented By: KELVIN Co-signed By: JV Admin: 06/17/23 09:33 Dose: 6 units Documented By: KELVIN Co-signed By: JV Admin: 06/16/23 21:17 Dose: 5 units Documented By: DREW Co-signed By: RB Admin: 06/16/23 17:43 Dose: 10 units Documented By: DREW Co-signed By: PURNIMA Admin: 06/16/23 12:40 Dose: 12 units Documented By: MARIE Co-signed By: JV Admin: 06/16/23 08:41 Dose: 10 units Documented By: MARIE Co-signed By: DIAN Admin: 06/15/23 21:28 Dose: 4 units Documented By: PURNIMA Co-signed By: RL Admin: 06/15/23 17:45 Dose: 8 units Documented By: PURNIMA Co-signed By: ARIELLE Admin: 06/15/23 13:13 Dose: 13 units Documented By: JANETH Co-signed By: DANICA Admin: 06/15/23 09:06 Dose: 7 units Documented By: JANETH Co-signed By: ARIELLE Admin: 06/14/23 21:17 Dose: 6 units Documented By: PURNIMA Co-signed By: RL Admin: 06/14/23 17:32 Dose: 9 units Documented By: PURNIMA Co-signed By: ARIELLE Admin: 06/14/23 13:25 Dose: 9 units Documented By: JANETH Co-signed By: DANICA Admin: 06/14/23 09:00 Dose: 7 units Documented By: JANETH Co-signed By: ARIELLE Insulin Glargine (Lantus Per Unit Charge) 5 units SC DAILY TIMOTEO Stop: 07/17/23 08:59 Last Admin: 06/17/23 09:33 Dose: 5 units Documented By: KELVIN Co-signed By: JV Lorazepam (Lorazepam 0.5 Mg Tab) 0.5 mg PO Q8 PRN PRN Reason: Anxiety Stop: 07/13/23 18:42 Last Admin: 06/16/23 16:09 Dose: 0.5 mg Documented By: Admin: 06/15/23 19:15 Dose: 0.5 mg Documented By: Admin: 06/14/23 15:22 Dose: 0.5 mg Documented By: PURNIMA Metformin HCl (Metformin Hcl Er 500 Mg Tabcr) 1,000 mg PO BIDM TIMOTEO Stop: 07/17/23 08:59 Last Admin: 06/17/23 08:57 Dose: 1,000 mg Documented By: COLTT Multivitamins (Multivitamin Tab) 1 tab PO TIMOTEO Stop: 07/13/23 21:59 Last Admin: 06/16/23 21:07 Dose: 1 tab Documented By: Admin: 06/15/23 21:31 Dose: 1 tab Documented By: Admin: 06/14/23 21:25 Dose: 1 tab Documented By: Admin: 06/13/23 21:44 Dose: 1 tab Documented By: PURNIMA Venlafaxine HCl (Venlafaxine Hcl Xr 75 Mg Capxr) 75 mg PO TIMOTEO Stop: 07/16/23 21:59 Last Admin: 06/16/23 21:09 Dose: 75 mg Documented By: DREW Zolpidem Tartrate (Zolpidem Tartrate 5 Mg Tab) 10 mg PO TIMOTEO Stop: 07/13/23 21:59 Last Admin: 06/16/23 21:11 Dose: 10 mg Documented By: Admin: 06/15/23 21:33 Dose: 10 mg Documented By: Admin: 06/14/23 21:08 Dose: 10 mg Documented By: Admin: 06/13/23 21:52 Dose: 10 mg Documented By: PURNIMA Coding Diagnoses Depression with anxiety F41.8 Diabetes mellitus type 2, uncontrolled Elevated liver enzymes R74.8
--- NOTE | 2023-06-17 16:19 | Psychiatric Progress Note ---
Date of Service June 17, 2023 Impression / Recommendations Impression 62 yo female with a hx of recurring depression with anxious features since the loss of her son 10 years ago. Full med trial info not currently available but desires to change longstanding rx of Effexor XR. Patient's LFTs, glucose, and lipid profile worsening, unclear if self care/compliance vs. low dose Abilify, regardless reports no interval improvement on 3 mg vs 2 mg. 06/17/23: still very sad, normalized anxiety. (1) Depression with anxiety: (2) Diabetes mellitus type 2, uncontrolled: (3) Elevated liver enzymes: Plan 06/17/23: continue current meds and tx plan. Will start Jardiance as per hospitalist. 06/16/23: decrease Effexor XR to 75 mg daily, increase Cymbalta to 30 mg in am, d/c Abilify. Will consult [facility] hospitalist (PCP Dr. Obregon) for discharge recs re: glucose management (+/- insulin) and hypertriglyceridemia. 06/15/23: risks/benefits/alternatives reviewed re: trial of Cymbalta. Add Cymbalta 20 mg in am, Abilify 2 mg this hs, with plan for additional Effexor taper. 06/14/23: The patient was admitted to the [facility] ([facility] inpatient mental health unit) on q15 min checks (behavioral with suicide precautions) for safety. The patient will participate in group, recreational, and milieu therapies and will be offered additional individual and family sessions as clinically appropriate. Risks/benefits/alternatives reviewed re: current medications, including but not limited to metabolic risks with Abilify and need for taper of Effexor XR due to discontinuation syndrome risk. Patient has hx of side effects to SSRIs and traditionally responded well to SNRI so would offer trial of Cymbalta as Effexor decreased, will discuss more in am. Decrease Effexor XR to 150 mg tonight. Inventory Assets Strengths: thoughtful, help seeking Needs: outpatient therapy/medication management, improve social activities. Suicide Risk Level Suicide Risk Level: Moderate (q15 min suicide checks) Risk Factors Assessment : Yes Do You Have Access To A Gun?: No Mental Health Diagnoses: Yes Substance Use Disorders: No Previous Attempt: No Previous Psychiatric Hospitalization: Yes Protective Factors Assessment Employed: No Interval History Identifying Information NOE GREEN is a 62-year-old F who currently lives in [place], has a history of depression/complicated grief with 1 prior inpatient stay, and was admitted on 06/13/23 12:56 on a 201 voluntary commitment for SI with plan. Chief Complaint "I still don't know what to do." Review of Systems Sleep Information Total Hours of Sleep: 7.25 Meal Information Percent Meal Consumed - Breakfast: 100 Percent Meal Consumed - Lunch: 100 Percent Meal Consumed - Dinner: 100 Subjective Subjective Patient was seen & assessed and interval progress reviewed with nursing and social work. Reviewed recs from hospitalist re: diabetes management on discharge. Denies side effects due to cross taper. Anxiety increasing in anticipation of transitions. Physical Exam Psychiatric Orientation: alert and oriented x 3 Apperance: appropriately dressed and appropriately groomed Eye Contact: good eye contact Motor Behavior: no abnormal motor movements Speech: normal rate/rhythm/volume of speech Affect: + depressed affect Mood: + depressed mood Thought Process: goal directed thought process Thought Content: reality based without delusions Suicidal Thoughts: denies suicidal thoughts Homicidal Thoughts: denies homicidal thoughts Hallucinations: no auditory hallucinations and no visual hallucinations Cognition: attention grossly intact and language grossly intact Estimated Intelligence: consistent with education level Insight: + fair insight Vital Signs (Past 24 Hours) Last Vital Signs Temp 36.7 C 06/17/23 06:47 Pulse 89 06/17/23 06:47 Resp 16 06/17/23 06:47 BP 129/87 06/17/23 06:47 Pulse Ox 97 06/15/23 08:05 O2 Del Method Room Air 06/15/23 08:05 Results & Data ([facility]) Laboratory Results Laboratory Results - last 24 hr 06/16/23 06/16/23 06/17/23 16:53 20:49 08:49 POC Glucose 144 H 240 H 194 H 06/17/23 13:06 POC Glucose 176 H Current Inpatient Medications Current Inpatient Medications: Current Inpatient Medications Acetaminophen (Acetaminophen 325 Mg Tab) 650 mg PO Q4H PRN PRN Reason: Headache or Minor Fever Stop: 07/13/23 12:55 Al Hydrox/Mg Hydrox/Simethicone (Aluminum/Magnesium Susp 30 Ml Udc) 30 ml PO Q4H PRN PRN Reason: GI Upset Stop: 07/13/23 12:55 Albuterol (Albuterol Hfa 8 Gm Inhaler) 2 puffs INH Q4R PRN PRN Reason: wheezing Stop: 07/13/23 18:56 Last Admin: 06/13/23 19:43 Dose: 2 puffs Albuterol (Albuterol Hfa 8 Gm Inhaler) 2 puffs INH QAM [facility]; Protocol Stop: 07/14/23 14:14 Last Admin: 06/17/23 08:54 Dose: 2 puffs Atorvastatin Calcium (Atorvastatin 40 Mg Tab) 40 mg PO QAM [facility] Stop: 07/14/23 08:59 Last Admin: 06/17/23 08:55 Dose: 40 mg Bismuth Subsalicylate (Bismuth Subsalicylate Liqd 236 Ml) 15 ml PO PRN PRN PRN Reason: Loose Stool Stop: 07/13/23 12:55 Buspirone HCl (Buspirone 7.5 Mg Tab) 7.5 mg PO BIDM [facility] Stop: 07/14/23 17:44 Last Admin: 06/17/23 08:56 Dose: 7.5 mg Dextrose (Dextrose 50% 50 Ml Syringe) 25 - 50 ml IV UD PRN; Protocol PRN Reason: Hypoglycemia Protocol Stop: 07/14/23 08:29 Duloxetine HCl (Duloxetine Hcl 30 Mg Cap) 30 mg PO QAM [facility] Stop: 07/17/23 08:59 Last Admin: 06/17/23 08:56 Dose: 30 mg Empagliflozin (Empagliflozin 10 Mg Tab) 10 mg PO DAILY [facility] Stop: 07/17/23 10:59 Last Admin: 06/17/23 13:21 Dose: 10 mg Fish Oil ([place]-3 (Purified Fish Oil) 1 Gm Cap) 1 gm PO BID [facility] Stop: 07/16/23 20:59 Last Admin: 06/17/23 08:56 Dose: 1 gm Fluticasone/Vilanterol (Fluticasone/Vilanterol 200/25mcg 14 Puffs/Inhaler) 2 puffs INH HS [facility] Stop: 07/13/23 21:59 Last Admin: 06/16/23 21:06 Dose: 2 puffs Glucagon (Glucagon For Inj 1 Mg Vial) 1 mg IM UD PRN; Protocol PRN Reason: Hypoglycemia Protocol Stop: 07/14/23 08:29 Glucose (Glucose 40% Gel 15 Gm Tube) 15 - 30 gm PO UD PRN; Protocol PRN Reason: Hypoglycemia Protocol Stop: 07/14/23 08:29 Glucose (Glucose 10 Tab/Tube) 4 - 8 tab PO UD PRN; Protocol PRN Reason: Hypoglycemia Protocol Stop: 07/14/23 08:29 Hydroxyzine HCl (Hydroxyzine Hcl 25 Mg Tab) 50 mg PO HSZ PRN PRN Reason: Insomnia Stop: 07/13/23 12:55 Insulin Aspart (Insulin Aspart Per Unit Charge) 0 units SC ACHS [facility] Stop: 07/14/23 08:14 Last Admin: 06/17/23 13:20 Dose: 9 units Insulin Glargine (Lantus Per Unit Charge) 5 units SC DAILY [facility] Stop: 07/17/23 08:59 Last Admin: 06/17/23 09:33 Dose: 5 units Lorazepam (Lorazepam 0.5 Mg Tab) 0.5 mg PO Q8 PRN PRN Reason: Anxiety Stop: 07/13/23 18:42 Last Admin: 06/16/23 16:09 Dose: 0.5 mg Magnesium Hydroxide (Magnesium Hydroxide Susp 30 Ml Udc) 30 ml PO DAILY PRN PRN Reason: Constipation Stop: 07/13/23 12:55 Metformin HCl (Metformin Hcl Er 500 Mg Tabcr) 1,000 mg PO BIDM [facility] Stop: 07/17/23 08:59 Last Admin: 06/17/23 08:57 Dose: 1,000 mg Miscellaneous (Carbohydrates For Hypoglycemia ) 15 - 30 gm PO UD PRN PRN Reason: Hypoglycemia Treatment Stop: 07/14/23 08:29 Miscellaneous Information (Pharmacy Glycemic Mgmt Consult) 1 each N/A UD PRN; Protocol PRN Reason: Consult Stop: 07/13/23 14:28 Multivitamins (Multivitamin Tab) 1 tab PO HS [facility] Stop: 07/13/23 21:59 Last Admin: 06/16/23 21:07 Dose: 1 tab Sodium Chloride (Sodium Chloride 0.65% Na Soln 45 Ml ([place])) 1 - 2 sprays NA PRN PRN PRN Reason: Nasal Dryness/Congestion Stop: 07/13/23 12:55 Venlafaxine HCl (Venlafaxine Hcl Xr 75 Mg Capxr) 75 mg PO HS [facility] Stop: 07/16/23 21:59 Last Admin: 06/16/23 21:09 Dose: 75 mg Zolpidem Tartrate (Zolpidem Tartrate 5 Mg Tab) 10 mg PO HS [facility] Stop: 07/13/23 21:59 Last Admin: 06/16/23 21:11 Dose: 10 mg Mental Health & Subst Abuse Tx Psychiatrist Name of Psychiatrist: Maggie Spaulding PA-C Psychiatrist's Date Of Appointment With Psychiatric Provider: 07/15/23 Time of Appointment with Psychiatrist: 10 AM Psychiatric Appointment Comment: [address] [place] [address] Therapist Name of Therapist: Lorenza Wise LCSW, CCTP Therapist's Date of Therapist Appointment: 06/19/23 Time of Therapist Appointment: 12:15 PM Therapy Appointment Comment: [address] [facility], [place] [address] Senior Packaging Engineer Name of Senior Packaging Engineer: [facility] Debby Phone Number for Senior Packaging Engineer: [phone] Case Management Appointment Comment: A blended supervisor case loading will contact you directly to schedule intake. Post Discharge Appointments Primary Care Physician Name Of Family Doctor/PCP: HOWIE Obregon Primary Care Date of Future Appointment with PCP: 07/08/2023 Time of Appointment with PCP: 2:00pm Provider Appointment Comment: [address], [place] [address] Contact Information Discharge Discharge Address: [address] [place] [id number]
[2023-06-17] MEDS: LORazepam 0.5 MG TAB PO PRN (20:23)
[2023-06-17] MEDS: FLUTICASONE/VILANTEROL 200/25MCG 14 PUFFS/INHALER INH SCH (21:28)
[2023-06-17] MEDS: MULTIVITAMIN TAB PO SCH (21:29)
[2023-06-17] MEDS: VENLAFAXINE HCL XR 75 MG CAPXR PO SCH (21:29)
[2023-06-17] MEDS: ZOLPIDEM TARTRATE 5 MG TAB PO SCH (21:35)
[2023-06-18] MEDS: ATORVASTATIN 40 MG TAB PO SCH (08:50)
[2023-06-18] MEDS: DULoxetine HCL 30 MG CAP PO SCH (08:50)
[2023-06-18] MEDS: OMEGA-3 (PURIFIED FISH OIL) 1 GM CAP PO SCH ×2 (08:50→20:38)
[2023-06-18] MEDS: ALBUTEROL HFA 8 GM INHALER INH SCH (08:50)
[2023-06-18] MEDS: EMPAGLIFLOZIN 10 MG TAB PO SCH (08:50)
[2023-06-18] MEDS: busPIRone 7.5 MG TAB PO SCH ×2 (08:50→17:34)
[2023-06-18] MEDS: metFORMIN HCL ER 500 MG TABCR PO SCH ×2 (08:51→17:34)
[2023-06-18] MEDS: INSULIN ASPART PER UNIT CHARGE SC SCH ×4 (08:55→20:46)
[2023-06-18] MEDS: LANTUS PER UNIT CHARGE SC SCH (08:59)
--- NOTE | 2023-06-18 12:02 | Psychiatric Progress Note ---
Date of Service June 18, 2023 Impression / Recommendations Impression 62 yo female with a hx of recurring depression with anxious features since the loss of her son 10 years ago. Full med trial info not currently available but desires to change longstanding rx of Effexor XR. Patient's LFTs, glucose, and lipid profile worsening, unclear if self care/compliance vs. low dose Abilify, regardless reports no interval improvement on 3 mg vs 2 mg. 06/18/23: improving. (1) Depression with anxiety: (2) Diabetes mellitus type 2, uncontrolled: (3) Elevated liver enzymes: Plan 06/18/23: Shear Grinder Operator consult, final safety planning, re-reviewed DM recs. Titrate Cymbalta to 40 mg daily. D/C Effexor XR. 06/17/23: continue current meds and tx plan. Will start Jardiance as per hospitalist. 06/16/23: decrease Effexor XR to 75 mg daily, increase Cymbalta to 30 mg in am, d/c Abilify. Will consult [facility] hospitalist (PCP Dr. Obregon) for discharge recs re: glucose management (+/- insulin) and hypertriglyceridemia. 06/15/23: risks/benefits/alternatives reviewed re: trial of Cymbalta. Add Cymbalta 20 mg in am, Abilify 2 mg this hs, with plan for additional Effexor taper. 06/14/23: The patient was admitted to the [facility] ([facility] mental health unit) on q15 min checks (behavioral with suicide precautions) for safety. The patient will participate in group, recreational, and milieu therapies and will be offered additional individual and family sessions as clinically appropriate. Risks/benefits/alternatives reviewed re: current medications, including but not limited to metabolic risks with Abilify and need for taper of Effexor XR due to discontinuation syndrome risk. Patient has hx of side effects to SSRIs and traditionally responded well to SNRI so would offer trial of Cymbalta as Effexor decreased, will discuss more in am. Decrease Effexor XR to 150 mg tonight. Inventory Assets Strengths: thoughtful, help seeking Needs: outpatient therapy/medication management, improve social activities. Suicide Risk Level Suicide Risk Level: Moderate (q15 min suicide checks) Risk Factors Assessment : Yes Do You Have Access To A Gun?: No Mental Health Diagnoses: Yes Substance Use Disorders: No Previous Attempt: No Previous Psychiatric Hospitalization: Yes Protective Factors Assessment Employed: No Interval History Identifying Information NOE GREEN is a 62-year-old F who currently lives in [place], has a history of depression/complicated grief with 1 prior inpatient stay, and was admitted on 06/13/23 12:56 on a 201 voluntary commitment for SI with plan. Chief Complaint "I'm giving up the dog." Review of Systems Sleep Information Total Hours of Sleep: 7 Meal Information Percent Meal Consumed - Breakfast: 100 Percent Meal Consumed - Lunch: 100 Percent Meal Consumed - Dinner: 100 Subjective Subjective Patient was seen & assessed and interval progress reviewed with treatment team. Patient appears brighter in interactions, still requiring a lot of direct support from staff re: transition home. Physical Exam Psychiatric Orientation: alert and oriented x 3 Apperance: appropriately dressed and appropriately groomed Eye Contact: good eye contact Motor Behavior: no abnormal motor movements Speech: normal rate/rhythm/volume of speech Affect: + depressed affect Mood: + depressed mood Thought Process: goal directed thought process Thought Content: reality based without delusions Suicidal Thoughts: denies suicidal thoughts Homicidal Thoughts: denies homicidal thoughts Hallucinations: no auditory hallucinations and no visual hallucinations Cognition: attention grossly intact and language grossly intact Estimated Intelligence: consistent with education level Insight: + fair insight Vital Signs (Past 24 Hours) Last Vital Signs Temp 36.7 C 06/18/23 06:46 Pulse 115 H 06/18/23 06:46 Resp 16 06/18/23 06:46 BP 119/73 06/18/23 06:46 Pulse Ox 97 06/15/23 08:05 O2 Del Method Room Air 06/15/23 08:05 Results & Data ([facility]) Laboratory Results Laboratory Results - last 24 hr 06/17/23 06/17/23 06/17/23 13:06 17:07 20:29 POC Glucose 176 H 107 H 118 H 06/18/23 08:10 POC Glucose 137 H Current Inpatient Medications Current Inpatient Medications: Current Inpatient Medications Acetaminophen (Acetaminophen 325 Mg Tab) 650 mg PO Q4H PRN PRN Reason: Headache or Minor Fever Stop: 07/13/23 12:55 Al Hydrox/Mg Hydrox/Simethicone (Aluminum/Magnesium Susp 30 Ml Udc) 30 ml PO Q4H PRN PRN Reason: GI Upset Stop: 07/13/23 12:55 Albuterol (Albuterol Hfa 8 Gm Inhaler) 2 puffs INH Q4R PRN PRN Reason: wheezing Stop: 07/13/23 18:56 Last Admin: 06/13/23 19:43 Dose: 2 puffs Albuterol (Albuterol Hfa 8 Gm Inhaler) 2 puffs INH QAM [facility]; Protocol Stop: 07/14/23 14:14 Last Admin: 06/18/23 08:50 Dose: 2 puffs Atorvastatin Calcium (Atorvastatin 40 Mg Tab) 40 mg PO QAM [facility] Stop: 07/14/23 08:59 Last Admin: 06/18/23 08:50 Dose: 40 mg Bismuth Subsalicylate (Bismuth Subsalicylate Liqd 236 Ml) 15 ml PO PRN PRN PRN Reason: Loose Stool Stop: 07/13/23 12:55 Buspirone HCl (Buspirone 7.5 Mg Tab) 7.5 mg PO BIDM [facility] Stop: 07/14/23 17:44 Last Admin: 06/18/23 08:50 Dose: 7.5 mg Dextrose (Dextrose 50% 50 Ml Syringe) 25 - 50 ml IV UD PRN; Protocol PRN Reason: Hypoglycemia Protocol Stop: 07/14/23 08:29 Duloxetine HCl (Duloxetine Hcl 20 Mg Cap) 40 mg PO QAM [facility] Stop: 07/19/23 08:59 Empagliflozin (Empagliflozin 10 Mg Tab) 10 mg PO DAILY [facility] Stop: 07/17/23 10:59 Last Admin: 06/18/23 08:50 Dose: 10 mg Fish Oil ([place]-3 (Purified Fish Oil) 1 Gm Cap) 1 gm PO BID [facility] Stop: 07/16/23 20:59 Last Admin: 06/18/23 08:50 Dose: 1 gm Fluticasone/Vilanterol (Fluticasone/Vilanterol 200/25mcg 14 Puffs/Inhaler) 2 puffs INH HS [facility] Stop: 07/13/23 21:59 Last Admin: 06/17/23 21:28 Dose: 2 puffs Glucagon (Glucagon For Inj 1 Mg Vial) 1 mg IM UD PRN; Protocol PRN Reason: Hypoglycemia Protocol Stop: 07/14/23 08:29 Glucose (Glucose 40% Gel 15 Gm Tube) 15 - 30 gm PO UD PRN; Protocol PRN Reason: Hypoglycemia Protocol Stop: 07/14/23 08:29 Glucose (Glucose 10 Tab/Tube) 4 - 8 tab PO UD PRN; Protocol PRN Reason: Hypoglycemia Protocol Stop: 07/14/23 08:29 Hydroxyzine HCl (Hydroxyzine Hcl 25 Mg Tab) 50 mg PO HSZ PRN PRN Reason: Insomnia Stop: 07/13/23 12:55 Insulin Aspart (Insulin Aspart Per Unit Charge) 0 units SC ACHS [facility] Stop: 07/14/23 08:14 Last Admin: 06/18/23 08:55 Dose: 4 units Insulin Glargine (Lantus Per Unit Charge) 5 units SC DAILY [facility] Stop: 07/17/23 08:59 Last Admin: 06/18/23 08:59 Dose: 5 units Lorazepam (Lorazepam 0.5 Mg Tab) 0.5 mg PO Q8 PRN PRN Reason: Anxiety Stop: 07/13/23 18:42 Last Admin: 06/17/23 20:23 Dose: 0.5 mg Magnesium Hydroxide (Magnesium Hydroxide Susp 30 Ml Udc) 30 ml PO DAILY PRN PRN Reason: Constipation Stop: 07/13/23 12:55 Metformin HCl (Metformin Hcl Er 500 Mg Tabcr) 1,000 mg PO BIDM [facility] Stop: 07/17/23 08:59 Last Admin: 06/18/23 08:51 Dose: 1,000 mg Miscellaneous (Carbohydrates For Hypoglycemia ) 15 - 30 gm PO UD PRN PRN Reason: Hypoglycemia Treatment Stop: 07/14/23 08:29 Miscellaneous Information (Pharmacy Glycemic Mgmt Consult) 1 each N/A UD PRN; Protocol PRN Reason: Consult Stop: 07/13/23 14:28 Multivitamins (Multivitamin Tab) 1 tab PO HS [facility] Stop: 07/13/23 21:59 Last Admin: 06/17/23 21:29 Dose: 1 tab Sodium Chloride (Sodium Chloride 0.65% Na Soln 45 Ml ([place])) 1 - 2 sprays NA PRN PRN PRN Reason: Nasal Dryness/Congestion Stop: 07/13/23 12:55 Zolpidem Tartrate (Zolpidem Tartrate 5 Mg Tab) 10 mg PO HS [facility] Stop: 07/13/23 21:59 Last Admin: 06/17/23 21:35 Dose: 10 mg Mental Health & Subst Abuse Tx Psychiatrist Name of Psychiatrist: Maggie Spaulding PA-C Psychiatrist's Date Of Appointment With Psychiatric Provider: 07/15/23 Time of Appointment with Psychiatrist: 10 AM Psychiatric Appointment Comment: [address] [facility], [place] [address] Therapist Name of Therapist: Lorenza Wise LCSW, CCTP Therapist's Date of Therapist Appointment: 06/19/23 Time of Therapist Appointment: 12:15 PM Therapy Appointment Comment: [address] [facility], [place] [address] Metallic Yarn Slitting Machine Operator Name of Metallic Yarn Slitting Machine Operator: [facility] Liat Guardado Phone Number for Metallic Yarn Slitting Machine Operator: [phone] Case Management Appointment Comment: A blended porter sample case will contact you directly to schedule intake. Post Discharge Appointments Primary Care Physician Name Of Family Doctor/PCP: HOWIE Obregon Primary Care Date of Future Appointment with PCP: 07/08/2023 Time of Appointment with PCP: 2:00pm Provider Appointment Comment: [address], [place] [address] Contact Information Discharge Discharge Address: [address], [place] [address]
[2023-06-18] MEDS: LORazepam 0.5 MG TAB PO PRN (18:05)
[2023-06-18] MEDS: MULTIVITAMIN TAB PO SCH (20:38)
[2023-06-18] MEDS: FLUTICASONE/VILANTEROL 200/25MCG 14 PUFFS/INHALER INH SCH (20:45)
[2023-06-18] MEDS: ZOLPIDEM TARTRATE 5 MG TAB PO SCH (20:45)
[2023-06-19] MEDS: ATORVASTATIN 40 MG TAB PO SCH (08:59)
[2023-06-19] MEDS: busPIRone 7.5 MG TAB PO SCH (09:00)
[2023-06-19] MEDS ORDERED: DULoxetine HCL 20 MG CAP PO SCH (09:00)
[2023-06-19] MEDS: ALBUTEROL HFA 8 GM INHALER INH SCH (09:00)
[2023-06-19] MEDS: OMEGA-3 (PURIFIED FISH OIL) 1 GM CAP PO SCH (09:01)
[2023-06-19] MEDS: EMPAGLIFLOZIN 10 MG TAB PO SCH (09:01)
[2023-06-19] MEDS: metFORMIN HCL ER 500 MG TABCR PO SCH (09:02)
[2023-06-19] MEDS: INSULIN ASPART PER UNIT CHARGE SC SCH ×2 (09:13→13:04)
[2023-06-19] MEDS: LANTUS PER UNIT CHARGE SC SCH (09:18)
--- NOTE | 2023-06-19 09:32 | Discharge Summary ---
Date of Service June 19, 2023 History of Present Illness Patient states that since last contact she has continued to grieve the of her son. She did divorce and dated a man for 5 years and was engaged to him when he unfortunately due to COVID. She reports being laid off from work about 8 months ago and thought that would be "good but then it wasn't." She has been increasingly lonely the past month with lack of interest and motivation in things. She is considering giving her dog to an interested family as although she is meeting his needs, she doesn't feel attached "the way I should." She also does recognize this would be less companionship but "spirals" as also thinks about visiting friends which is difficult when has to be home for the pet. She has taken Effexor XR for years and just doesn't feel it's working as well. That said, had a consult with Dr. Kearney through [facility] in past and was started on Abilify with little perceived benefit. Her blood sugars are not as good lately and she isn't sure why, timing doesn't necessarily coincide with med change. Yesterday was the anniversary of her son's and it was "all too much" and that is why she decided to come to ED when had thoughts of OD on Ambien. She doesn't want to act on those thoughts as Ambien is the "only" thing that has helped her to sleep. Physical Exam Psychiatric See admission H&P and DOD assessment. Vital Signs (Past 24 Hours) Last Vital Signs Temp 36.6 C 06/19/23 06:44 Pulse 88 06/19/23 06:44 Resp 16 06/19/23 06:44 BP 136/83 06/19/23 06:44 Pulse Ox 97 06/15/23 08:05 O2 Del Method Room Air 06/15/23 08:05 Principal Diagnosis major depressive disorder, recurrent Psychiatric Data See daily stay summary. In short, safety was maintained and the patient was cooperative with care. Medication changes included taper and d/c of Abilify and Effexor in favor of a trial of Cymbalta and they tolerated this well. A family session was held with her friend and safety plan was completed prior to discharge. The patient continued to process her grief over the anniversary of her son's . She decided to rehome her dog to minimize stress at home and utilize other social supports. She was cooperative with diabetes management and voiced good understanding of the plan for continuing metformin, adding Jardiance (given savings program registration info), and continuing Lantus for now. The cost of Jardiance may be prohibitive despite coupon and she is aware that Dr. Obregon's office has been notified and can discuss options at follow up appointment or sooner as directed by [facility]. Day of Discharge Assessment Today the patient voices readiness for discharge. They note improvement in mood and deny thoughts to harm self or others. Thoughts remain organized and they are improved from admission. There is no evidence of psychosis. They agree to take mediations as prescribed and keep follow-up appointments. They are stable for discharge to outpatient level of care. Transition of Care Transition Of Care Record: was reviewed with the patient Advance Directives Advance Directives Information Provided: Yes Advance Directives: No Mental Health Advance Directive: No Advance Directives on File: No Living Will: No Power of [place]: No Advance Directives Reason:: Declines as Mental Health Visit. Suicide Risk Level Suicide Risk Level Comments: Suicide risk at discharge is deemed low as the patient is no longer requiring 24-hr monitoring, has a safety plan, and is free of suicidal ideation at discharge. Risk Factors Assessment : Yes Do You Have Access To A Gun?: No Mental Health Diagnoses: Yes Substance Use Disorders: No Previous Attempt: No Previous Psychiatric Hospitalization: Yes Protective Factors Assessment Employed: No Tobacco Cessation at Discharge Tobacco Cessation Medication Prescribed at Discharge: Not Applicable/Non-Smoker Total Time Total Time Spent: Greater Than 30 Minutes Total Time Includes: Examination of the patient, Discharge Planning, Medication Reconciliation and Communication with other providers Discharge Data Consultations 06/16/23 08:48 Consult Hospitalist Routine Lab Results 06/13/23 06/13/23 06/13/23 09:16 09:16 09:16 WBC 6.20 RBC 4.82 Hgb 14.6 Hct 44.1 MCV 91.5 MCH 30.3 MCHC 33.1 RDW Std Deviation 47.2 H RDW Coeff of Pako 14.0 Plt Count 223 MPV 11.1 Immature Gran % (Auto) 1.0 Neut % (Auto) 70.1 Lymph % (Auto) 21.6 Kerr % (Auto) 4.7 Eos % (Auto) 1.6 Baso % (Auto) 1.0 Neut # (Auto) 4.35 Lymph # (Auto) 1.34 Kerr # (Auto) 0.29 Eos # (Auto) 0.10 Baso # (Auto) 0.06 Immature Gran # (Auto) 0.06 Sodium 134 L Potassium 4.0 Chloride 102 Carbon Dioxide 24 Anion Gap 8 BUN 16 Creatinine 0.93 Est Cr Clr Drug Dosing 86.0 Est GFR ( Amer) 76.9 Est GFR (Non-Af Amer) 66.3 BUN/Creatinine Ratio 17.2 Glucose 348 H* POC Glucose Estimat Average Glucose Hemoglobin A1c Calcium 9.5 Total Bilirubin 0.5 AST 49 H ALT 91 H Alkaline Phosphatase 105 H Total Protein 7.1 Albumin 4.1 Globulin 3.0 Albumin/Globulin Ratio 1.4 Triglycerides Cholesterol LDL Cholesterol, Calc VLDL Cholesterol, Calc HDL Cholesterol Cholesterol/HDL Ratio TSH 2.394 Urine Color Urine Appearance Urine pH Ur Specific [place] Urine Protein Urine Glucose (UA) Urine Ketones Urine Blood Urine Nitrite Urine Bilirubin Urine Urobilinogen Ur Leukocyte Esterase Urine WBC (Auto) Urine RBC (Auto) U Hyaline Cast (Auto) U Epithel Cells (Auto) Urine Bacteria (Auto) Salicylates Urine Opiates Screen Ur Methadone, Qual Acetaminophen Urine Barbiturates Ur Phencyclidine (PCP) U Amphetamin/Meth Scrn MDMA (Ecstasy) Screen U Benzodiazepines Scrn Ur Cocaine Metabolite U Marijuana (THC) Screen Ethyl Alcohol mg/dL SARS-CoV-2, RNA, NAAT 06/13/23 06/13/23 06/13/23 09:16 09:16 09:23 WBC RBC Hgb Hct MCV MCH MCHC RDW Std Deviation RDW Coeff of Pako Plt Count MPV Immature Gran % (Auto) Neut % (Auto) Lymph % (Auto) Kerr % (Auto) Eos % (Auto) Baso % (Auto) Neut # (Auto) Lymph # (Auto) Kerr # (Auto) Eos # (Auto) Baso # (Auto) Immature Gran # (Auto) Sodium Potassium Chloride Carbon Dioxide Anion Gap BUN Creatinine Est Cr Clr Drug Dosing Est GFR ( Amer) Est GFR (Non-Af Amer) BUN/Creatinine Ratio Glucose POC Glucose Estimat Average Glucose Hemoglobin A1c Calcium Total Bilirubin AST ALT Alkaline Phosphatase Total Protein Albumin Globulin Albumin/Globulin Ratio Triglycerides Cholesterol LDL Cholesterol, Calc VLDL Cholesterol, Calc HDL Cholesterol Cholesterol/HDL Ratio TSH Urine Color Urine Appearance Urine pH Ur Specific [place] Urine Protein Urine Glucose (UA) Urine Ketones Urine Blood Urine Nitrite Urine Bilirubin Urine Urobilinogen Ur Leukocyte Esterase Urine WBC (Auto) Urine RBC (Auto) U Hyaline Cast (Auto) U Epithel Cells (Auto) Urine Bacteria (Auto) Salicylates < 3.0 L Urine Opiates Screen Ur Methadone, Qual Acetaminophen < 3 L Urine Barbiturates Ur Phencyclidine (PCP) U Amphetamin/Meth Scrn MDMA (Ecstasy) Screen U Benzodiazepines Scrn Ur Cocaine Metabolite U Marijuana (THC) Screen Ethyl Alcohol mg/dL < 10.0 SARS-CoV-2, RNA, NAAT NEGATIVE 06/13/23 06/13/23 06/13/23 09:23 09:23 11:12 WBC RBC Hgb Hct MCV MCH MCHC RDW Std Deviation RDW Coeff of Pako Plt Count MPV Immature Gran % (Auto) Neut % (Auto) Lymph % (Auto) Kerr % (Auto) Eos % (Auto) Baso % (Auto) Neut # (Auto) Lymph # (Auto) Kerr # (Auto) Eos # (Auto) Baso # (Auto) Immature Gran # (Auto) Sodium Potassium Chloride Carbon Dioxide Anion Gap BUN Creatinine Est Cr Clr Drug Dosing Est GFR ( Amer) Est GFR (Non-Af Amer) BUN/Creatinine Ratio Glucose POC Glucose 249 H Estimat Average Glucose Hemoglobin A1c Calcium Total Bilirubin AST ALT Alkaline Phosphatase Total Protein Albumin Globulin Albumin/Globulin Ratio Triglycerides Cholesterol LDL Cholesterol, Calc VLDL Cholesterol, Calc HDL Cholesterol Cholesterol/HDL Ratio TSH Urine Color Yellow Urine Appearance Clear Urine pH 5.0 Ur Specific [place] 1.036 H Urine Protein Trace H Urine Glucose (UA) 3+ H Urine Ketones Trace H Urine Blood Negative Urine Nitrite Negative Urine Bilirubin Negative Urine Urobilinogen Negative Ur Leukocyte Esterase Negative Urine WBC (Auto) 5-10 H Urine RBC (Auto) 0-4 U Hyaline Cast (Auto) 1-5 U Epithel Cells (Auto) >30 H Urine Bacteria (Auto) 1+ H Salicylates Urine Opiates Screen Neg Ur Methadone, Qual Neg Acetaminophen Urine Barbiturates Neg Ur Phencyclidine (PCP) Neg U Amphetamin/Meth Scrn Neg MDMA (Ecstasy) Screen Neg U Benzodiazepines Scrn Neg Ur Cocaine Metabolite Neg U Marijuana (THC) Screen Neg Ethyl Alcohol mg/dL SARS-CoV-2, RNA, NAAT 06/13/23 06/14/23 06/14/23 11:55 07:11 07:11 WBC RBC Hgb Hct MCV MCH MCHC RDW Std Deviation RDW Coeff of Pako Plt Count MPV Immature Gran % (Auto) Neut % (Auto) Lymph % (Auto) Kerr % (Auto) Eos % (Auto) Baso % (Auto) Neut # (Auto) Lymph # (Auto) Kerr # (Auto) Eos # (Auto) Baso # (Auto) Immature Gran # (Auto) Sodium Potassium Chloride Carbon Dioxide Anion Gap BUN Creatinine Est Cr Clr Drug Dosing Est GFR ( Amer) Est GFR (Non-Af Amer) BUN/Creatinine Ratio Glucose POC Glucose 167 H Estimat Average Glucose 243 Hemoglobin A1c 10.1 H Calcium Total Bilirubin AST ALT Alkaline Phosphatase Total Protein Albumin Globulin Albumin/Globulin Ratio Triglycerides 352 H Cholesterol 238 H LDL Cholesterol, Calc 124 VLDL Cholesterol, Calc 70 H HDL Cholesterol 44 Cholesterol/HDL Ratio 5.4 H TSH Urine Color Urine Appearance Urine pH Ur Specific [place] Urine Protein Urine Glucose (UA) Urine Ketones Urine Blood Urine Nitrite Urine Bilirubin Urine Urobilinogen Ur Leukocyte Esterase Urine WBC (Auto) Urine RBC (Auto) U Hyaline Cast (Auto) U Epithel Cells (Auto) Urine Bacteria (Auto) Salicylates Urine Opiates Screen Ur Methadone, Qual Acetaminophen Urine Barbiturates Ur Phencyclidine (PCP) U Amphetamin/Meth Scrn MDMA (Ecstasy) Screen U Benzodiazepines Scrn Ur Cocaine Metabolite U Marijuana (THC) Screen Ethyl Alcohol mg/dL SARS-CoV-2, RNA, NAAT 06/14/23 06/14/23 06/14/23 08:36 12:25 16:56 WBC RBC Hgb Hct MCV MCH MCHC RDW Std Deviation RDW Coeff of Pako Plt Count MPV Immature Gran % (Auto) Neut % (Auto) Lymph % (Auto) Kerr % (Auto) Eos % (Auto) Baso % (Auto) Neut # (Auto) Lymph # (Auto) Kerr # (Auto) Eos # (Auto) Baso # (Auto) Immature Gran # (Auto) Sodium Potassium Chloride Carbon Dioxide Anion Gap BUN Creatinine Est Cr Clr Drug Dosing Est GFR ( Amer) Est GFR (Non-Af Amer) BUN/Creatinine Ratio Glucose POC Glucose 171 H 138 H 147 H Estimat Average Glucose Hemoglobin A1c Calcium Total Bilirubin AST ALT Alkaline Phosphatase Total Protein Albumin Globulin Albumin/Globulin Ratio Triglycerides Cholesterol LDL Cholesterol, Calc VLDL Cholesterol, Calc HDL Cholesterol Cholesterol/HDL Ratio TSH Urine Color Urine Appearance Urine pH Ur Specific [place] Urine Protein Urine Glucose (UA) Urine Ketones Urine Blood Urine Nitrite Urine Bilirubin Urine Urobilinogen Ur Leukocyte Esterase Urine WBC (Auto) Urine RBC (Auto) U Hyaline Cast (Auto) U Epithel Cells (Auto) Urine Bacteria (Auto) Salicylates Urine Opiates Screen Ur Methadone, Qual Acetaminophen Urine Barbiturates Ur Phencyclidine (PCP) U Amphetamin/Meth Scrn MDMA (Ecstasy) Screen U Benzodiazepines Scrn Ur Cocaine Metabolite U Marijuana (THC) Screen Ethyl Alcohol mg/dL SARS-CoV-2, RNA, NAAT 06/14/23 06/15/23 06/15/23 20:24 08:08 12:28 WBC RBC Hgb Hct MCV MCH MCHC RDW Std Deviation RDW Coeff of Pako Plt Count MPV Immature Gran % (Auto) Neut % (Auto) Lymph % (Auto) Kerr % (Auto) Eos % (Auto) Baso % (Auto) Neut # (Auto) Lymph # (Auto) Kerr # (Auto) Eos # (Auto) Baso # (Auto) Immature Gran # (Auto) Sodium Potassium Chloride Carbon Dioxide Anion Gap BUN Creatinine Est Cr Clr Drug Dosing Est GFR ( Amer) Est GFR (Non-Af Amer) BUN/Creatinine Ratio Glucose POC Glucose 137 H 183 H 164 H Estimat Average Glucose Hemoglobin A1c Calcium Total Bilirubin AST ALT Alkaline Phosphatase Total Protein Albumin Globulin Albumin/Globulin Ratio Triglycerides Cholesterol LDL Cholesterol, Calc VLDL Cholesterol, Calc HDL Cholesterol Cholesterol/HDL Ratio TSH Urine Color Urine Appearance Urine pH Ur Specific [place] Urine Protein Urine Glucose (UA) Urine Ketones Urine Blood Urine Nitrite Urine Bilirubin Urine Urobilinogen Ur Leukocyte Esterase Urine WBC (Auto) Urine RBC (Auto) U Hyaline Cast (Auto) U Epithel Cells (Auto) Urine Bacteria (Auto) Salicylates Urine Opiates Screen Ur Methadone, Qual Acetaminophen Urine Barbiturates Ur Phencyclidine (PCP) U Amphetamin/Meth Scrn MDMA (Ecstasy) Screen U Benzodiazepines Scrn Ur Cocaine Metabolite U Marijuana (THC) Screen Ethyl Alcohol mg/dL SARS-CoV-2, RNA, NAAT 06/15/23 06/15/23 06/16/23 17:03 20:31 08:00 WBC RBC Hgb Hct MCV MCH MCHC RDW Std Deviation RDW Coeff of Pako Plt Count MPV Immature Gran % (Auto) Neut % (Auto) Lymph % (Auto) Kerr % (Auto) Eos % (Auto) Baso % (Auto) Neut # (Auto) Lymph # (Auto) Kerr # (Auto) Eos # (Auto) Baso # (Auto) Immature Gran # (Auto) Sodium Potassium Chloride Carbon Dioxide Anion Gap BUN Creatinine Est Cr Clr Drug Dosing Est GFR ( Amer) Est GFR (Non-Af Amer) BUN/Creatinine Ratio Glucose POC Glucose 119 H 156 H 173 H Estimat Average Glucose Hemoglobin A1c Calcium Total Bilirubin AST ALT Alkaline Phosphatase Total Protein Albumin Globulin Albumin/Globulin Ratio Triglycerides Cholesterol LDL Cholesterol, Calc VLDL Cholesterol, Calc HDL Cholesterol Cholesterol/HDL Ratio TSH Urine Color Urine Appearance Urine pH Ur Specific [place] Urine Protein Urine Glucose (UA) Urine Ketones Urine Blood Urine Nitrite Urine Bilirubin Urine Urobilinogen Ur Leukocyte Esterase Urine WBC (Auto) Urine RBC (Auto) U Hyaline Cast (Auto) U Epithel Cells (Auto) Urine Bacteria (Auto) Salicylates Urine Opiates Screen Ur Methadone, Qual Acetaminophen Urine Barbiturates Ur Phencyclidine (PCP) U Amphetamin/Meth Scrn MDMA (Ecstasy) Screen U Benzodiazepines Scrn Ur Cocaine Metabolite U Marijuana (THC) Screen Ethyl Alcohol mg/dL SARS-CoV-2, RNA, NAAT 06/16/23 06/16/23 06/16/23 11:38 16:53 20:49 WBC RBC Hgb Hct MCV MCH MCHC RDW Std Deviation RDW Coeff of Pako Plt Count MPV Immature Gran % (Auto) Neut % (Auto) Lymph % (Auto) Kerr % (Auto) Eos % (Auto) Baso % (Auto) Neut # (Auto) Lymph # (Auto) Kerr # (Auto) Eos # (Auto) Baso # (Auto) Immature Gran # (Auto) Sodium Potassium Chloride Carbon Dioxide Anion Gap BUN Creatinine Est Cr Clr Drug Dosing Est GFR ( Amer) Est GFR (Non-Af Amer) BUN/Creatinine Ratio Glucose POC Glucose 196 H 144 H 240 H Estimat Average Glucose Hemoglobin A1c Calcium Total Bilirubin AST ALT Alkaline Phosphatase Total Protein Albumin Globulin Albumin/Globulin Ratio Triglycerides Cholesterol LDL Cholesterol, Calc VLDL Cholesterol, Calc HDL Cholesterol Cholesterol/HDL Ratio TSH Urine Color Urine Appearance Urine pH Ur Specific [place] Urine Protein Urine Glucose (UA) Urine Ketones Urine Blood Urine Nitrite Urine Bilirubin Urine Urobilinogen Ur Leukocyte Esterase Urine WBC (Auto) Urine RBC (Auto) U Hyaline Cast (Auto) U Epithel Cells (Auto) Urine Bacteria (Auto) Salicylates Urine Opiates Screen Ur Methadone, Qual Acetaminophen Urine Barbiturates Ur Phencyclidine (PCP) U Amphetamin/Meth Scrn MDMA (Ecstasy) Screen U Benzodiazepines Scrn Ur Cocaine Metabolite U Marijuana (THC) Screen Ethyl Alcohol mg/dL SARS-CoV-2, RNA, NAAT 06/17/23 06/17/23 06/17/23 08:49 13:06 17:07 WBC RBC Hgb Hct MCV MCH MCHC RDW Std Deviation RDW Coeff of Pako Plt Count MPV Immature Gran % (Auto) Neut % (Auto) Lymph % (Auto) Kerr % (Auto) Eos % (Auto) Baso % (Auto) Neut # (Auto) Lymph # (Auto) Kerr # (Auto) Eos # (Auto) Baso # (Auto) Immature Gran # (Auto) Sodium Potassium Chloride Carbon Dioxide Anion Gap BUN Creatinine Est Cr Clr Drug Dosing Est GFR ( Amer) Est GFR (Non-Af Amer) BUN/Creatinine Ratio Glucose POC Glucose 194 H 176 H 107 H Estimat Average Glucose Hemoglobin A1c Calcium Total Bilirubin AST ALT Alkaline Phosphatase Total Protein Albumin Globulin Albumin/Globulin Ratio Triglycerides Cholesterol LDL Cholesterol, Calc VLDL Cholesterol, Calc HDL Cholesterol Cholesterol/HDL Ratio TSH Urine Color Urine Appearance Urine pH Ur Specific [place] Urine Protein Urine Glucose (UA) Urine Ketones Urine Blood Urine Nitrite Urine Bilirubin Urine Urobilinogen Ur Leukocyte Esterase Urine WBC (Auto) Urine RBC (Auto) U Hyaline Cast (Auto) U Epithel Cells (Auto) Urine Bacteria (Auto) Salicylates Urine Opiates Screen Ur Methadone, Qual Acetaminophen Urine Barbiturates Ur Phencyclidine (PCP) U Amphetamin/Meth Scrn MDMA (Ecstasy) Screen U Benzodiazepines Scrn Ur Cocaine Metabolite U Marijuana (THC) Screen Ethyl Alcohol mg/dL SARS-CoV-2, RNA, NAAT 06/17/23 06/18/23 06/18/23 20:29 08:10 12:05 WBC RBC Hgb Hct MCV MCH MCHC RDW Std Deviation RDW Coeff of Pako Plt Count MPV Immature Gran % (Auto) Neut % (Auto) Lymph % (Auto) Kerr % (Auto) Eos % (Auto) Baso % (Auto) Neut # (Auto) Lymph # (Auto) Kerr # (Auto) Eos # (Auto) Baso # (Auto) Immature Gran # (Auto) Sodium Potassium Chloride Carbon Dioxide Anion Gap BUN Creatinine Est Cr Clr Drug Dosing Est GFR ( Amer) Est GFR (Non-Af Amer) BUN/Creatinine Ratio Glucose POC Glucose 118 H 137 H 121 H Estimat Average Glucose Hemoglobin A1c Calcium Total Bilirubin AST ALT Alkaline Phosphatase Total Protein Albumin Globulin Albumin/Globulin Ratio Triglycerides Cholesterol LDL Cholesterol, Calc VLDL Cholesterol, Calc HDL Cholesterol Cholesterol/HDL Ratio TSH Urine Color Urine Appearance Urine pH Ur Specific [place] Urine Protein Urine Glucose (UA) Urine Ketones Urine Blood Urine Nitrite Urine Bilirubin Urine Urobilinogen Ur Leukocyte Esterase Urine WBC (Auto) Urine RBC (Auto) U Hyaline Cast (Auto) U Epithel Cells (Auto) Urine Bacteria (Auto) Salicylates Urine Opiates Screen Ur Methadone, Qual Acetaminophen Urine Barbiturates Ur Phencyclidine (PCP) U Amphetamin/Meth Scrn MDMA (Ecstasy) Screen U Benzodiazepines Scrn Ur Cocaine Metabolite U Marijuana (THC) Screen Ethyl Alcohol mg/dL SARS-CoV-2, RNA, NAAT 06/18/23 06/18/23 06/19/23 17:12 20:27 07:47 WBC RBC Hgb Hct MCV MCH MCHC RDW Std Deviation RDW Coeff of Pako Plt Count MPV Immature Gran % (Auto) Neut % (Auto) Lymph % (Auto) Kerr % (Auto) Eos % (Auto) Baso % (Auto) Neut # (Auto) Lymph # (Auto) Kerr # (Auto) Eos # (Auto) Baso # (Auto) Immature Gran # (Auto) Sodium Potassium Chloride Carbon Dioxide Anion Gap BUN Creatinine Est Cr Clr Drug Dosing Est GFR ( Amer) Est GFR (Non-Af Amer) BUN/Creatinine Ratio Glucose POC Glucose 122 H 122 H 135 H Estimat Average Glucose Hemoglobin A1c Calcium Total Bilirubin AST ALT Alkaline Phosphatase Total Protein Albumin Globulin Albumin/Globulin Ratio Triglycerides Cholesterol LDL Cholesterol, Calc VLDL Cholesterol, Calc HDL Cholesterol Cholesterol/HDL Ratio TSH Urine Color Urine Appearance Urine pH Ur Specific [place] Urine Protein Urine Glucose (UA) Urine Ketones Urine Blood Urine Nitrite Urine Bilirubin Urine Urobilinogen Ur Leukocyte Esterase Urine WBC (Auto) Urine RBC (Auto) U Hyaline Cast (Auto) U Epithel Cells (Auto) Urine Bacteria (Auto) Salicylates Urine Opiates Screen Ur Methadone, Qual Acetaminophen Urine Barbiturates Ur Phencyclidine (PCP) U Amphetamin/Meth Scrn MDMA (Ecstasy) Screen U Benzodiazepines Scrn Ur Cocaine Metabolite U Marijuana (THC) Screen Ethyl Alcohol mg/dL SARS-CoV-2, RNA, NAAT Hospital Course (1) Depression with anxiety: (2) Diabetes mellitus type 2, uncontrolled: (3) Elevated liver enzymes: Plan 06/18/23: Cancer Program Coordinator consult, final safety planning, re-reviewed DM recs. Titrate Cymbalta to 40 mg daily. D/C Effexor XR. 06/17/23: continue current meds and tx plan. Will start Jardiance as per hospitalist. 06/16/23: decrease Effexor XR to 75 mg daily, increase Cymbalta to 30 mg in am, d/c Abilify. [facility] consult [facility] [place] (PCP Dr. Obregon) for discharge recs re: glucose management (+/- insulin) and hypertriglyceridemia. 06/15/23: risks/benefits/alternatives reviewed re: trial of Cymbalta. Add Cymbalta 20 mg in am, Abilify 2 mg this hs, with plan for additional Effexor taper. 06/14/23: The patient was admitted to the [facility] ([facility] mental health unit) on q15 min checks (behavioral with suicide precautions) for safety. The patient will participate in group, recreational, and milieu therapies and will be offered additional individual and family sessions as clinically appropriate. Risks/benefits/alternatives reviewed re: current medications, including but not limited to metabolic risks with Abilify and need for taper of Effexor XR due to discontinuation syndrome risk. Patient has hx of side effects to SSRIs and traditionally responded well to SNRI so would offer trial of Cymbalta as Effexor decreased, will discuss more in am. Decrease Effexor XR to 150 mg tonight. Mental Health & Subst Abuse Tx Psychiatrist Name of Psychiatrist: Maggie Spaulding PA-C Psychiatrist's Date Of Appointment With Psychiatric Provider: 07/15/23 Time of Appointment with Psychiatrist: 10 AM Psychiatric Appointment Comment: [address] [place] [address] Therapist Name of Therapist: Lorenza Wise LCSW, CCTP Therapist's Date of Therapist Appointment: 06/19/23 Time of Therapist Appointment: 3:00PM Therapy Appointment Comment: [address] [place] [address] Home Help Aide Name of Home Help Aide: [facility] [place] Phone Number for Home Help Aide: [phone] Case Management Appointment Comment: A blended disability case manager will contact you directly to schedule intake. Post Discharge Appointments Primary Care Physician Name Of Family Doctor/PCP: HOWIE Obregon Primary Care Date of Future Appointment with PCP: 07/08/2023 Time of Appointment with PCP: 2:00pm Provider Appointment Comment: [address], [place] [address] Smoking Cessation Counseling Tobacco Cessation Medication Prescribed at Discharge: Not Applicable/Non-Smoker Contact Information Discharge Discharge [address]: [address] [place] [id number] Discharge Plan Discharge Items Patient Disposition: Home - Self-Care Reason For Visit: MDD Discharge Diagnosis: major depressive disorder Activity: Resume your previous activity Non-emergency contact: Primary Care Provider and Psychiatrist Call non-emergency contact if: you have any medication questions and your symptoms worsen Follow-up/Referrals: Denver Obregon MD [Primary Care Provider] - Diet: Carb Consistent or DM2 Addtl Attending Provider Instructions: SPECIAL CARE INSTRUCTIONS: 1. Follow through with your scheduled aftercare appointments. If unable to keep an appointment, please call to reschedule. 2. Take your medication only as prescribed. Medication should not be changed or stopped without the approval of your doctor. In the event of worsening symptoms or concerns about side effects, contact your doctor immediately. 3. Utilize new healthy coping skills, anger management skills, and stress management skills learned during your hospitalization. Journal feelings and process them with a support person. Identify stressors or situations that may result in relapse, deterioration or inappropriate behaviors and develop a plan to deal with those issues. 4. If your coping skills are ineffective and you are in crisis, contact your outpatient providers for direction. If unable to reach your providers, please call the [facility] CRISIS LINE AT , go to the [facility] walk-in center at [address], [address], [place], or go to the closest Emergency Room. 5. Avoid alcohol and un-prescribed drugs. 6. You have been provided with the Mental Health Advance Directives Pamphlet for your review. 7. Your condition is stable for discharge to outpatient level of care, but recovery is an ongoing process. Ifthoughts to harm yourself or others return, follow the safety plan developed during your stay. Planning for a safe return home includes securing weapons. Our treatment team recommends weaponsbe removed from the home until your outpatient provider reassesses your progress. In rare cases where the items themselvescannot be removed, guns and ammunitionshould be secured separatelyand keys stored by a reliable personoutside of the home. If you were admitted on an involuntary commitment, the police or other legal authorities may be involved in this process. AFTERCARE APPOINTMENTS: * Please call your insurance company prior to your scheduled appointment to confirm your aftercare providers are covered. Take your insurance information to your appointments. WHO TO CALL AND WHEN: Medical Emergencies: For questions or emergencies related to your hospital stay, please contact the Inpatient Behavioral Health Unit at [phone]. A methods specialist is on-call 26/05 for the Behavioral Health Unit for emergencies At any time you feel your situation is an emergency, you may also call 911 immediately. Addtl Car Hop Provider Instructions: Dr. Angel recommended Lantus 5 units daily until seen by your PCP or endocrine. Check blood sugars daily (and randomly throughout the day if you have any symptoms of low blood sugar or vision change), if these are consistently low (below 120) then this can be stopped in consultation with your PCP office. Pending Studies at Discharge: No Stand-Alone Forms: My [facility], Smoking Cessation Medications and DC Order Prescriptions: New duloxetine 40 mg capsule, delayed rel sprinkle 40 mg PO DAILY Qty: 30 0RF Rx Instructions: replacing Effexor Jardiance 10 mg Tablet 10 mg PO DAILY Qty: 30 0RF metformin 1,000 mg tablet extended release 24 hr 1,000 mg PO BIDM Qty: 60 0RF Fish Oil [[place]-3 (Purified Fish Oil)] 1 g PO BID Qty: 60 0RF insulin glargine 100 unit/mL (3 mL) insulin pen 5 unit subcut DAILY Qty: 15 0RF (DME) pen needle, diabetic [Pen Needle] 31 gauge x 5/16" needle See Rx Instructions .Route Qty: 50 0RF Rx Instructions: As directed once daily with insulin Continued atorvastatin 40 mg tablet 40 mg PO HS Qty: 30 5RF buspirone 7.5 mg tablet 7.5 mg PO BID Qty: 180 1RF albuterol sulfate [Ventolin HFA] 90 mcg/actuation HFA aerosol inhaler 2 puff inhalation QAM Qty: 8.5 3RF lorazepam 0.5 mg tablet 0.5 mg PO BID PRN (Reason: anxiety) Qty: 60 0RF zolpidem 10 mg tablet 10 mg PO HS Qty: 30 0RF (DME) lancets [BD Ultra Fine Lancets] 33 gauge misc See Rx Instructions .ROUTE .MEDSUPPLY Rx Instructions: test Blood sugars Twice a day (DME) OneTouch Verio test strips Strip See Rx Instructions .ROUTE .MEDSUPPLY Rx Instructions: test blood sugar twice a day multivitamin [One-A-Day Essential] tablet 1 tab PO HS fluticasone furoate-vilanterol 200-25 mcg/dose blister with device 1 inh INHALATION BID Discontinued metformin 500 mg tablet 500 mg PO TID Qty: 90 3RF venlafaxine [Effexor XR] 150 mg capsule,extended release 24hr 150 mg PO HS Qty: 90 1RF Rx Instructions: taken with 75mg tablet venlafaxine [Effexor XR] 75 mg capsule,extended release 24hr 75 mg PO HS Qty: 90 1RF Rx Instructions: take with 150mg tablet aripiprazole [Abilify] 2 mg tablet 2 mg PO HS Discharge Orders: Discharge Order (Routine); Ordered 06/19/23 Ordered By: Brandie Mason/Other Patient Handouts: High Blood Sugar (Hyperglycemia), Managing Type 2 Diabetes Admission Data Admit Date/Time: 06/13/23 12:56 Attending Provider: Brandie Call Admit Provider: Ashley Mao Primary Care Provider: Denver Obregon Other Providers: Seema Bell Other Interventions: PSY Interdisciplinary Discharge Planning Last Done: 06/18/23 15:58 Coding Level of Care Code 38125 D/C day mgmt > 30 min Diagnoses Depression with anxiety F41.8 Diabetes mellitus type 2, uncontrolled Elevated liver enzymes R74.8
--- NOTE | 2023-06-19 10:31 | Communication Note ---
Date of Service: June 19, 2023 Dr. Call contacted me to assist with prescribing of insulin on discharge. I reviewed the previous hospitalist consultation note and agree with the following plan. She is to be discharged home on metformin XR 1000 Mg p.o. twice daily, Januvia 10 mg p.o. once daily, and I will prescribe insulin glargine 5 units SQ once daily along with pen needles.
== END 2023-06-19 13:34 | disposition home or self-care (01) | DRG 880 ==
LOC: ED 08:47 → SUATTDRO 12:56 → 3S 12:56

== ENCOUNTER 2023-07-08 15:34 | Inpatient (IN) ==
[2023-07-08] MEDS ORDERED: LORazepam 1 MG TAB PO STA (15:53)
--- NOTE | 2023-07-08 15:59 | Emergency Department Note ---
Impression & Plan Depression with suicidal ideation, Anxiety ED Provider Note NAME: NOE GREEN AGE: 62 SEX: F : 1960 ARRIVES VIA: Walk-In INFORMANT: Patient, ED PROVIDER(S): Denver Saldivar DO CHIEF COMPLAINT: Depression and anxiety HPI: The patient is a 62-year-old female who has a history of depression and anxiety who presented to the emergency department at the request of her primary care physician for further evaluation. The patient was recently admitted to our mental health facility. She was discharged but continues to have severe symp toms such as depression as well as suicidal ideation. She went for her follow- up appointment today with her family doctor. She was advised to go to the emergency department for further evaluation. The patient does admit to suicidal ideation with a plan to take her pills and overdose. ROS: See above HPI for pertinent positives & negatives. A total of 10 systems reviewed and were otherwise negative. PAST MEDICAL HISTORY: See Below PAST SURGICAL HISTORY: See Below FAMILY HISTORY: See Below SOCIAL HISTORY: See Below HOME MEDICATIONS: See Below ALLERGIES: See Below VITALS: See Below PHYSICAL EXAMINATION: GENERAL: She is awake and alert. She is somewhat anxious appearing. EYES: The conjunctivae are clear. The pupils are round and reactive. EARS, NOSE, MOUTH AND THROAT: The nose is without any evidence of any deformity. NECK: The neck is nontender and supple. RESPIRATORY: Normal respiratory effort is noted there is no evidence of wheezing rhonchi or rales CARDIOVASCULAR: Regular rate and rhythm noted there no murmurs rubs or gallops normal S1 normal S2. GASTROINTESTINAL: The abdomen is soft. Abdomen is nontender. MUSCULOSKELETAL/EXTREMITIES: There is no evidence of gross deformity full range of motion is noted in the hips and shoulders. SKIN: There is no obvious evidence of any rash. There are no petechiae, pallor or cyanosis noted. NEUROLOGIC: Patient is awake alert and oriented x3 strength is symmetric patellar reflexes are 2+ bilaterally PSYCH: The patient makes good eye contact mostly evaluation. Her affect is flat. She does continue to admit to suicidal ideation with a plan to overdose on medications. MEDICAL DECISION MAKING: The patient is a 62-year-old female who presented to the emergency department for mental health evaluation. The patient was admitted to our facility approximately 1 month ago. She returns today at the request of her primary care physician because her medications are not working. She was felt to be in need of inpatient management. I discussed the patient's condition with the [facility] emergency department mental health field case manager. The patient was m edically cleared in the emergency department. She was treated with Ativan in the emergency department. She was somewhat improved. At this time bed search is currently underway. Triage Nursing notes reviewed. Prior medical records reviewed Vital Signs: reviewed and remarkable for elevated blood pressure. Differential diagnosis: Mood disorder, infection, hypoglycemia, electrolyte abnormalities, cardiac sources, intracerebral event, toxicologic, trauma, neurologic, as well as other pathologies. ER treatment provided: See below Diagnostics interpreted by me: ECG: none Laboratory studies: As stated above and show below. Imaging studies: See below. Consultation(s): I discussed this case with the emergency department all the field case manager. This case was signed out to Dr. Aggarwal at change of shift. Please see her note for continuation of care and further disposition. Past Med/Surg History Medical History Anxiety and depression Asthma inh prn Endometriosis History of COVID-19 10/2021, CVIM test, not hosp; headache, chills>resolved. Nausea and vomiting after administration of anesthetic agent "been ok with recent experiences w/anesthesia" Suicidal ideation hx Surgical History H/O colonoscopy History of cholecystectomy History of dilation and curettage History of esophagogastroduodenoscopy (EGD) History of hysteroscopy History of laparoscopy History of total abdominal hysterectomy w/bilat. tubes and ovaries Hx of hernia repair Family History Father Lymphoma Acute myocardial infarction Diabetes Myocardial infarction Son Chronic liver disease Denies family history of Ovarian cancer Prostate cancer Breast cancer Colorectal cancer Social History Smoking Status: Never smoker Second Hand Exposure: Yes (mother smoked); Do You Dip or Chew Tobacco: No; Hx Alcohol Use: Yes Alcohol type: hard liquor Hx Substance Use: No Preferred Language: Canadian Communication Ability: Effective Visual Impairment: No Limitations Hearing Ability: Normal Spider Assembler Required: No Beliefs That Will Affect Care: None marital status: Current Living Situation: Alone current occupational status: employed current occupation: medical billing Feels Safe at Home: Yes Childhood Exposure to Second-Hand Smoke: Yes Dental Care, Regularly: Yes Physical Activity Frequency: Daily Seatbelt Use: always Sunscreen Use: No Gender Identity: Female Assistive Devices: None Allergies Allergies Allergy/AdvReac Type Severity Reaction Status Date / Time codeine Allergy Unknown RASH - PER Verified 07/08/23 14:08 DR BAJWA, PT HAS HAD MORPHINE IN PAST Home Meds Home Medications Medication Instructions Recorded Confirmed multivitamin (One-A-Day Essential 1 tab PO HS 05/03/19 07/08/23 tablet) lancets 33 gauge (BD Ultra Fine 03/19/21 07/08/23 Lancets) Previous Rx's Medication Instructions Recorded atorvastatin 40 mg tablet 40 mg PO HS #30 tabs 03/18/23 buspirone 7.5 mg tablet 7.5 mg PO BID #180 tabs 04/10/23 albuterol sulfate 90 mcg/actuation 2 puff inhalation QAM #8.5 grams 05/05/23 aerosol inhaler (Ventolin HFA) Fish Oil [[place]-3 (Purified Fish 1 g PO BID #60 tabs 06/18/23 Oil)] metformin 1,000 mg tablet,extended 1,000 mg PO BIDM #60 tabs 06/18/23 release 24hr insulin glargine 100 unit/mL (3 5 unit (0.05 mL) subcut DAILY #15 06/19/23 mL) subcutaneous pen mL pen needle, diabetic 31 gauge x #50 ea 06/19/23 5/" (Pen Needle) duloxetine 40 mg capsule,delayed 40 mg PO DAILY #30 caps 06/20/23 release sprinkle fluticasone furoate 200 1 inh inhalation BID #60 ea 06/20/23 mcg-vilanterol 25 mcg/dose inhalation powder lorazepam 0.5 mg tablet 0.5 mg PO BID PRN anxiety #60 tabs 06/23/23 blood sugar diagnostic (OneTouch #100 ea 06/25/23 Verio test strips) zolpidem 10 mg tablet 10 mg PO HS #30 tabs 07/03/23 Results & Data (ED) Vital Signs Vital Signs - 24 hr 07/08/23 15:38 07/08/23 18:30 Temperature 36.4 C L Temperature Source Temporal Artery Scan Pulse Rate 105 H Pulse Rate [Left Finger] 85 Pulse Rhythm [Left Finger] Regular Pulse Strength [Left Finger] Normal Respiratory Rate 18 20 Respiratory Effort / Characteristics Non-Labored Spontaneous Respiratory Depth Normal Respiratory Pattern Regular Blood Pressure 182/110 H Blood Pressure [Right Arm] 159/102 H Blood Pressure Mean 134 Blood Pressure Mean [Right Arm] 121 Blood Pressure Position Sitting Blood Pressure Position [Right Arm] Sitting Pulse Oximetry 95 100 Oxygen Delivery Method Room Air Room Air Sepsis Recent Fever Within 48 Hours No Sepsis New/Unexplained Change in Mental Status No Sepsis Action Taken by Nursing No Action Required Home Medications Current Medication List: was personally reviewed by me Laboratory Data Attestation: I reviewed the patient's lab results. 07/08/23 16:03 07/08/23 16:03 Lab Results 07/08/23 07/08/23 07/08/23 Range/Units 16:03 16:03 16:03 WBC 7.41 (4.8-10.8) K/ul RBC 4.77 (4.20-5.40) M/uL Hgb 14.5 (12.0-16.0) g/dl Hct 42.9 (37.0-47.0) % MCV 89.9 (80.0-100.0) fL MCH 30.4 (25.0-34.0) pg MCHC 33.8 (32.0-36.0) g/dL RDW Std Deviation 45.5 (36.4-46.3) fL RDW Coeff of Pako 13.8 (11.5-14.5) % Plt Count 230 (130-400) K/uL MPV 11.1 (9.4-12.4) fL Immature Gran % (Auto) 0.7 % Neut % (Auto) 63.1 % Lymph % (Auto) 25.1 % [place] % (Auto) 8.4 % Eos % (Auto) 1.6 % Baso % (Auto) 1.1 % Neut # (Auto) 4.68 (1.40-6.50) K/uL Lymph # (Auto) 1.86 (1.20-3.40) K/uL [place] # (Auto) 0.62 H (0.11-0.59) K/uL Eos # (Auto) 0.12 (0.00-0.50) K/uL Baso # (Auto) 0.08 (0.00-0.20) K/uL Immature Gran # (Auto) 0.05 (0.01-0.20) K/uL Sodium 137 (136-145) mmol/L Potassium 4.0 (3.5-5.1) mmol/L Chloride 104 (98-107) mmol/L Carbon Dioxide 22 (21-32) mmol/L Anion Gap 11 (3-11) BUN 15 (6-23) mg/dl Creatinine 0.94 (0.6-1.2) mg/dl Est Cr Clr Drug Dosing 84.6 ml/min Est GFR ( Amer) 75.9 ml/min Est GFR (Non-Af Amer) 65.5 ml/min BUN/Creatinine Ratio 16.0 (10-20) Glucose 106 H (70-99(Fasting)) mg/dl Calcium 10.5 H (8.6-10.3) mg/dl Total Bilirubin 0.5 (0.2-1.0) mg/dl AST 58 H (13-39) U/L ALT 88 H (7-52) U/L Alkaline Phosphatase 106 H (34-104) U/L Total Protein 7.4 (6.0-8.3) gm/dl Albumin 4.2 (3.4-5.0) gm/dl Globulin 3.2 (2.5-4.0) gm/dl Albumin/Globulin Ratio 1.3 (0.9-2) TSH 3.250 (0.300-4.500) uIu/ml Urine Color Urine Appearance (Clear) Urine pH (4.5-7.5) Ur Specific [place] (1.000-1.030) Urine Protein (Negative) Urine Glucose (UA) (Negative) Urine Ketones (Negative) Urine Blood (Negative) Urine Nitrite (Negative) Urine Bilirubin (Negative) Urine Urobilinogen (Negative) Ur Leukocyte Esterase (Negative) Urine WBC (Auto) (0-5) /hpf Urine RBC (Auto) (0-4) /hpf U Hyaline Cast (Auto) (0-5) /lpf U Epithel Cells (Auto) (0-5) /lpf Urine Bacteria (Auto) (Negative) Salicylates (3.0-30) mg/dl Urine Opiates Screen (Neg) Ur Methadone, Qual (Neg) Acetaminophen (10-30) ug/ml Urine Barbiturates (Neg) Ur Phencyclidine (PCP) (Neg) U Amphetamin/Meth Scrn (Neg) MDMA (Ecstasy) Screen (Neg) U Benzodiazepines Scrn (Neg) Ur Cocaine Metabolite (Neg) U Marijuana (THC) Screen (Neg) Ethyl Alcohol mg/dL (<10.0) mg/dl SARS-CoV-2, RNA, NAAT (NEGATIVE) 07/08/23 07/08/23 07/08/23 Range/Units 16:03 16:03 16:30 WBC (4.8-10.8) K/ul RBC (4.20-5.40) M/uL Hgb (12.0-16.0) g/dl Hct (37.0-47.0) % MCV (80.0-100.0) fL MCH (25.0-34.0) pg MCHC (32.0-36.0) g/dL RDW Std Deviation (36.4-46.3) fL RDW Coeff of Pako (11.5-14.5) % Plt Count (130-400) K/uL MPV (9.4-12.4) fL Immature Gran % (Auto) % Neut % (Auto) % Lymph % (Auto) % [place] % (Auto) % Eos % (Auto) % Baso % (Auto) % Neut # (Auto) (1.40-6.50) K/uL Lymph # (Auto) (1.20-3.40) K/uL [place] # (Auto) (0.11-0.59) K/uL Eos # (Auto) (0.00-0.50) K/uL Baso # (Auto) (0.00-0.20) K/uL Immature Gran # (Auto) (0.01-0.20) K/uL Sodium (136-145) mmol/L Potassium (3.5-5.1) mmol/L Chloride (98-107) mmol/L Carbon Dioxide (21-32) mmol/L Anion Gap (3-11) BUN (6-23) mg/dl Creatinine (0.6-1.2) mg/dl Est Cr Clr Drug Dosing ml/min Est GFR ( Amer) ml/min Est GFR (Non-Af Amer) ml/min BUN/Creatinine Ratio (10-20) Glucose (70-99(Fasting)) mg/dl Calcium (8.6-10.3) mg/dl Total Bilirubin (0.2-1.0) mg/dl AST (13-39) U/L ALT (7-52) U/L Alkaline Phosphatase (34-104) U/L Total Protein (6.0-8.3) gm/dl Albumin (3.4-5.0) gm/dl Globulin (2.5-4.0) gm/dl Albumin/Globulin Ratio (0.9-2) TSH (0.300-4.500) uIu/ml Urine Color Urine Appearance (Clear) Urine pH (4.5-7.5) Ur Specific [place] (1.000-1.030) Urine Protein (Negative) Urine Glucose (UA) (Negative) Urine Ketones (Negative) Urine Blood (Negative) Urine Nitrite (Negative) Urine Bilirubin (Negative) Urine Urobilinogen (Negative) Ur Leukocyte Esterase (Negative) Urine WBC (Auto) (0-5) /hpf Urine RBC (Auto) (0-4) /hpf U Hyaline Cast (Auto) (0-5) /lpf U Epithel Cells (Auto) (0-5) /lpf Urine Bacteria (Auto) (Negative) Salicylates < 3.0 L (3.0-30) mg/dl Urine Opiates Screen (Neg) Ur Methadone, Qual (Neg) Acetaminophen < 3 L (10-30) ug/ml Urine Barbiturates (Neg) Ur Phencyclidine (PCP) (Neg) U Amphetamin/Meth Scrn (Neg) MDMA (Ecstasy) Screen (Neg) U Benzodiazepines Scrn (Neg) Ur Cocaine Metabolite (Neg) U Marijuana (THC) Screen (Neg) Ethyl Alcohol mg/dL < 10.0 (<10.0) mg/dl SARS-CoV-2, RNA, NAAT NEGATIVE (NEGATIVE) 07/08/23 07/08/23 Range/Units 16:30 16:30 WBC (4.8-10.8) K/ul RBC (4.20-5.40) M/uL Hgb (12.0-16.0) g/dl Hct (37.0-47.0) % MCV (80.0-100.0) fL MCH (25.0-34.0) pg MCHC (32.0-36.0) g/dL RDW Std Deviation (36.4-46.3) fL RDW Coeff of Pako (11.5-14.5) % Plt Count (130-400) K/uL MPV (9.4-12.4) fL Immature Gran % (Auto) % Neut % (Auto) % Lymph % (Auto) % [place] % (Auto) % Eos % (Auto) % Baso % (Auto) % Neut # (Auto) (1.40-6.50) K/uL Lymph # (Auto) (1.20-3.40) K/uL [place] # (Auto) (0.11-0.59) K/uL Eos # (Auto) (0.00-0.50) K/uL Baso # (Auto) (0.00-0.20) K/uL Immature Gran # (Auto) (0.01-0.20) K/uL Sodium (136-145) mmol/L Potassium (3.5-5.1) mmol/L Chloride (98-107) mmol/L Carbon Dioxide (21-32) mmol/L Anion Gap (3-11) BUN (6-23) mg/dl Creatinine (0.6-1.2) mg/dl Est Cr Clr Drug Dosing ml/min Est GFR ( Amer) ml/min Est GFR (Non-Af Amer) ml/min BUN/Creatinine Ratio (10-20) Glucose (70-99(Fasting)) mg/dl Calcium (8.6-10.3) mg/dl Total Bilirubin (0.2-1.0) mg/dl AST (13-39) U/L ALT (7-52) U/L Alkaline Phosphatase (34-104) U/L Total Protein (6.0-8.3) gm/dl Albumin (3.4-5.0) gm/dl Globulin (2.5-4.0) gm/dl Albumin/Globulin Ratio (0.9-2) TSH (0.300-4.500) uIu/ml Urine Color Yellow Urine Appearance Clear (Clear) Urine pH 5.0 (4.5-7.5) Ur Specific [place] 1.022 (1.000-1.030) Urine Protein Trace H (Negative) Urine Glucose (UA) Negative (Negative) Urine Ketones 1+ H (Negative) Urine Blood Negative (Negative) Urine Nitrite Negative (Negative) Urine Bilirubin Negative (Negative) Urine Urobilinogen Negative (Negative) Ur Leukocyte Esterase Negative (Negative) Urine WBC (Auto) 1-5 (0-5) /hpf Urine RBC (Auto) 0-4 (0-4) /hpf U Hyaline Cast (Auto) 1-5 (0-5) /lpf U Epithel Cells (Auto) >30 H (0-5) /lpf Urine Bacteria (Auto) 1+ H (Negative) Salicylates (3.0-30) mg/dl Urine Opiates Screen Neg (Neg) Ur Methadone, Qual Neg (Neg) Acetaminophen (10-30) ug/ml Urine Barbiturates Neg (Neg) Ur Phencyclidine (PCP) Neg (Neg) U Amphetamin/Meth Scrn Neg (Neg) MDMA (Ecstasy) Screen Neg (Neg) U Benzodiazepines Scrn Neg (Neg) Ur Cocaine Metabolite Neg (Neg) U Marijuana (THC) Screen Neg (Neg) Ethyl Alcohol mg/dL (<10.0) mg/dl SARS-CoV-2, RNA, NAAT (NEGATIVE) Administered Medications Discontinued Medications Lorazepam (Lorazepam 1 Mg Tab) 1 mg PO NOW STA Stop: 07/08/23 15:54 Last Admin: 07/08/23 16:05 Dose: 1 mg Documented By: KTLai Discharge Plan Visit Data Chief Complaint: Mental Health Evaluation Stated Complaint: REF BY DR ED Provider: Denver Saldivar Discharge Problem: Depression with suicidal ideation, Anxiety Patient Disposition: Still a Patient Forms Stand Alone Forms: My [facility], Suicide Prevention Resources Prescriptions Prescriptions: No Action atorvastatin 40 mg tablet 40 mg PO HS Qty: 30 5RF buspirone 7.5 mg tablet 7.5 mg PO BID Qty: 180 1RF albuterol sulfate [Ventolin HFA] 90 mcg/actuation HFA aerosol inhaler 2 puff inhalation QAM Qty: 8.5 3RF lorazepam 0.5 mg tablet 0.5 mg PO BID PRN (Reason: anxiety) Qty: 60 0RF (DME) OneTouch Verio test strips Strip See Rx Instructions .ROUTE .MEDSUPPLY Qty: 100 5RF Rx Instructions: test blood sugar twice a day zolpidem 10 mg tablet 10 mg PO HS Qty: 30 0RF fluticasone furoate-vilanterol 200-25 mcg/dose blister with device 1 inh INHALATION BID Qty: 60 5RF duloxetine 40 mg capsule, delayed rel sprinkle 40 mg PO DAILY Qty: 30 1RF Rx Instructions: replacing Effexor (DME) lancets [BD Ultra Fine Lancets] 33 gauge misc See Rx Instructions .ROUTE .MEDSUPPLY Rx Instructions: test Blood sugars Twice a day multivitamin [One-A-Day Essential] tablet 1 tab PO HS metformin 1,000 mg tablet extended release 24 hr 1,000 mg PO BIDM Qty: 60 0RF Fish Oil [[place]-3 (Purified Fish Oil)] 1 g PO BID Qty: 60 0RF insulin glargine 100 unit/mL (3 mL) insulin pen 5 unit subcut DAILY Qty: 15 0RF (DME) pen needle, diabetic [Pen Needle] 31 gauge x 5/16" needle See Rx Instructions .Route Qty: 50 0RF Rx Instructions: As directed once daily with insulin Referrals Referrals: Pro,Denver uHrley MD [Primary Care Provider] -
[2023-07-08 16:31] LABS: Basophils # (auto) 0.08 K/uL (0.00-0.20); Basophils % (auto) 1.1 %; Eosinophils # (auto) 0.12 K/uL (0.00-0.50); Eosinophils % (auto) 1.6 %; Hematocrit (blood only) 42.9 % (37.0-47.0); Hemoglobin 14.5 g/dl (12.0-16.0); Immature Granulocytes # (auto) 0.05 K/uL (0.01-0.20); Immature Granulocytes % (auto) 0.7 %; Lymphocytes # (auto) 1.86 K/uL (1.20-3.40); Lymphocytes % (auto) 25.1 %; Mean Corpuscular Hemoglobin 30.4 pg (25.0-34.0); Mean Corpuscular Hgb Conc 33.8 g/dL (32.0-36.0); Mean Corpuscular Volume 89.9 fL (80.0-100.0); Mean Platelet Volume 11.1 fL (9.4-12.4); Monocytes # (auto) 0.62 K/uL (0.11-0.59); Monocytes % (auto) 8.4 %; Neutrophils # (auto) 4.68 K/uL (1.40-6.50); Neutrophils % (auto) 63.1 %; Platelet Count 230 K/uL (130-400); RDW Coefficient of Variation 13.8 % (11.5-14.5); RDW Standard Deviation 45.5 fL (36.4-46.3); Red Blood Count 4.77 M/uL (4.20-5.40); White Blood Count 7.41 K/ul (4.8-10.8)
[2023-07-08 16:41] LABS: Acetaminophen < 3 ug/ml (10-30); Salicylate < 3.0 mg/dl (3.0-30)
[2023-07-08 16:50] LABS: Albumin Globulin Ratio 1.3 (0.9-2); Albumin Level 4.2 gm/dl (3.4-5.0); Bilirubin,Total 0.5 mg/dl (0.2-1.0); Calcium 10.5 mg/dl (8.6-10.3); Creatinine Clr Calc Pharmacy 84.6 ml/min; Est GFR (African American) 75.9 ml/min; Est GFR (Non-African American) 65.5 ml/min; Globulin 3.2 gm/dl (2.5-4.0); Total Protein 7.4 gm/dl (6.0-8.3)
[2023-07-08 16:54] LABS: Appearance Urine Clear (Clear); Bacteria Urine Automated 1+ (Negative); Bilirubin Urine Negative (Negative); Blood Urine Negative (Negative); Color Urine Yellow; Epithelial Cell Urine Auto >30 /lpf (0-5); Glucose Urine UA Negative (Negative); Ketones Urine 1+ (Negative); Leukocyte Esterase Urine Negative (Negative); Nitrite Urine Negative (Negative); Protein Urine Trace (Negative); RBC Urine Automated 0-4 /hpf (0-4); Specific Gravity Urine 1.022 (1.000-1.030); Urobilinogen Urine Negative (Negative)
[2023-07-08 17:17] LABS: Amphetamines+Metham, Urine Neg (Neg); Barbiturates, Urine Neg (Neg); Benzodiazepine, Urine Neg (Neg); Cocaine, Urine Neg (Neg); MDMA (Ecstacy), Urine Neg (Neg); Methadone, Urine Neg (Neg); Opiate, Urine Neg (Neg); Phencyclidine, Urine Neg (Neg)
[2023-07-08] MEDS ORDERED: ALBUTEROL HFA 8 GM INHALER INH ONE (19:46)
--- NOTE | 2023-07-08 20:20 | Emergency Department Note ---
ED Visit Note Patient signed out to me at change of shift by Dr. Saldivar. Patient excepted to [facility] for inpatient mental health treatment. 201 signed by me. .
[2023-07-08] MEDS ORDERED: SODIUM CHLORIDE 0.65% NA SOLN 45 ML (OCEAN) PRN (20:46)
[2023-07-08] MEDS ORDERED: BISMUTH SUBSALICYLATE LIQD 236 ML PO PRN (20:46)
[2023-07-08] MEDS ORDERED: hydrOXYzine HCl 25 MG TAB PO PRN (20:46)
[2023-07-08] MEDS ORDERED: ALUMINUM/MAGNESIUM SUSP 30 ML UDC PO PRN (20:46)
[2023-07-08] MEDS ORDERED: MAGNESIUM HYDROXIDE SUSP 30 ML UDC PO PRN (20:46)
[2023-07-08] MEDS ORDERED: ACETAMINOPHEN 325 MG TAB PO PRN (20:46)
[2023-07-08] MEDS ORDERED: NON-FORMULARY PATIENT'S OWN MED SCH (21:00)
[2023-07-08] MEDS: FLUTICASONE/VILANTEROL 200/25MCG 14 PUFFS/INHALER INH SCH (21:29)
[2023-07-08] MEDS: OMEGA-3 (PURIFIED FISH OIL) 1 GM CAP PO SCH (21:30)
[2023-07-08] MEDS: busPIRone 7.5 MG TAB PO SCH (21:31)
[2023-07-08] MEDS: hydrOXYzine HCl 25 MG TAB PO PRN ×2 (21:41→22:21)
[2023-07-08] MEDS ORDERED: ATORVASTATIN 10 MG TAB PO SCH (22:00)
[2023-07-08] MEDS ORDERED: LANTUS PER UNIT CHARGE SQ SCH (22:00)
[2023-07-08] MEDS ORDERED: MULTIVITAMIN TAB PO SCH (22:00)
[2023-07-09] MEDS: OMEGA-3 (PURIFIED FISH OIL) 1 GM CAP PO SCH ×3 (08:47→21:06)
[2023-07-09] MEDS: FLUTICASONE/VILANTEROL 200/25MCG 14 PUFFS/INHALER INH SCH (08:47)
[2023-07-09] MEDS: busPIRone 7.5 MG TAB PO SCH (08:47)
--- NOTE | 2023-07-09 08:50 | History & Physical ---
Date of Service July 09, 2023 Impression / Recommendations Impression Noe is a 62 year old woman with a history of depression, anxiety, insomnia and complicated bereavement who was admitted for SI with plan and ongoing depression and loneliness. Diagnostically consistent with major depressive disorder vs persistent depressive disorder and complicated bereavement. She is deemed in need of psychiatric hospitalization for diagnostic clarification, safety and stabilization, medication management and development of further coping skills. Reviewed her current medications including time course over which expected beneficial effects from Cymbalta would be seen (typically not until 4-6 weeks) and challenge of loneliness and bereavement symptoms for which medication is unlikely to offer benefit and emphasis will need to be on behavioral activation and ongoing therapy. Reviewed that dopamine effects with Wellbutrin could offer faster effect for neurovegetative depression symptoms but may worsen anxiety. Discussed other medication treatment options in detail. Discussed risks, benefits and alternatives. Patient would like to start and consented to mirtazapine for depression, anxiety and insomnia as well as increasing buspar for anxiety and reducing ativan to once daily prn with long-term goal of discontinuation or only using a few times per month or around the anniversary of her son's . Reviewed side effects including but not limited to: sedation/increased appetite with mirtazapine; dizziness/GI side effects with buspar; addictive potential/cognitive deficits/fall risk/respiratory suppression with ativan. Overall I spent a total of 80 minutes for this admission including review of chart records, review of labwork, direct evaluation of the patient, counseling the patient, ordering medication, risk assessment, discussion with the psychiatric liason RN and documentation in the electronic health record. (1) Depression with suicidal ideation: (2) Depression with anxiety: (3) Insomnia: (4) Complicated bereavement: Plan 07/09/2023: The patient was admitted to the [facility] ([facility]) on q15 min checks (behavioral with suicide precautions) for safety. The patient will participate in group, recreational, and milieu therapies and will be offered additional individual and family sessions as clinically appropriate. -Increase Buspar from 7.5mg BID to 15mg BID -Discontinue Ambien to trial mirtazapine 15mg HS -Decrease ativan from 0.5mg BID prn to daily prn for severe anxiety/panic attacks -She will consider option of increasing Cymbalta vs trial of Wellbutrin for MDD -Goal of working on empowering her to find new opportunities for social connection/volunteering as well as ongoing focus of outpatient therapy and behavioral activation to help with depression symptoms Inventory Assets Strengths: outpatient providers, willing to get treatment Needs: safety and stabilization, medication adjustment, additional coping skills, increased outpatient services Suicide Risk Level Suicide Risk Level: High-Moderate (q15 min suicide checks) (severe depression with SI with plan prior to admission but feels safe in the hospital, able to safety contract and agrees to let nursing/staff know should they develop plan, intent or feel unable to remain safe. ) Risk Factors Assessment Male: No : Yes Do You Have Access To A Gun?: No Health Problems: Yes Mental Health Diagnoses: Yes Substance Use Disorders: No Previous Attempt: No Family History of Suicide: Yes Previous Psychiatric Hospitalization: Yes Protective Factors Assessment Employed: No Good Rapport with Provider: Yes Psychiatric History Identifying Data NOE GREEN is a 62-year-old F who currently lives in [place] alone, has a history of depression, complicated bereavement, anxiety, insomnia, DM Type II, and was admitted on 07/08/23 19:52 on a 201 voluntary commitment for SI with plan of overdosing on medication. Chief Complaint "I was up all night without my Ambien". History of Present Illness Noe presented to the ED after she was at an appointment with her primary care provider, Dr. Obregon, and endorsed worsening depression, lack of will to live and overusing her ativan and ambien the night prior to sleep and "not feel any pain" and "my mind was racing". She denies this was a suicide attempt or gesture/rehearsal behavior but the next day did develop SI with plan of overdosing on her medication. She's been experiencing more intermittent SI over recent weeks. She was recently admitted to the inpatient psychiatry unit from 06/14/2023 - 06/19/2023 with medication adjustments including from Effexor XR to Cymbalta 40mg (now for about 3 weeks), discontinuation of Abilify. She continues to take Buspar 7.5mg BID (has been on this for about one month and has helped with anxiety), Ativan 0.5mg BID prn (typically takes this every day around this time of year due to anniversary of son's , on and off for the last 12 year s), and Ambien 10mg HS (has been on this for the last 12 years). She presents for psychiatric admission for worsening depression and SI with plan of overdosing on medication in the context of multiple psychosocial stressors including "being alone", "feeling very depressed" and the anniversary of her son's . She has been continuing to see her therapist weekly, has been meeting with her new rifle case repairer and she will soon be seeing Ruma at [facility] for psychiatry. She has struggled in engage in any type of wellness or mood elevating activities or socialization which she attributes to "feeling like I can't until I'm out from under this dark cloud". She endorses depression symptoms of "just being alone", "having to deal with everything myself, it's very overwhelming...fiances, having to take of my house, just everything", low energy, anhedonia, and normal sleep ("until last night when I didn't sleep at all" but then agrees about a week ago she was having more dreams and not sleeping as well). Psychiatric ROS notable for no current nor history of symptoms of nanci, psychosis, nor eating disorder. Past Psychiatric History Current Psychiatric Diagnosis: Depression Outpatient Services: weekly therapy with Lorenza Wise, psychiatry with [facility], Case Management Previous Psych Admissions: [facility] June [id number] Do You Have Access To A Gun?: No History of Previous Suicide Attempt: No Past Medication Trials: Prozac (worsened or caused SI), Lexapro (didn't help), Effexor XR, Wellbutrin (few years ago, didn't seem to work after awhile). No history of trazodone nor mirtazapine. Past Head Trauma/Neuro History History of Concussion/Seizure: No Allergies Allergy/AdvReac Type Severity Reaction Status Date / Time codeine Allergy Unknown RASH - PER Verified 07/08/23 14:08 DR BAJWA, PT HAS HAD MORPHINE IN PAST Home Medications Medication Instructions Recorded Confirmed Type multivitamin (One-A-Day Essential 1 tab PO HS 05/03/19 07/08/23 History tablet) lancets 33 gauge (BD Ultra Fine 03/19/21 07/08/23 History Lancets) atorvastatin 40 mg tablet 40 mg PO HS #30 tabs 03/18/23 07/08/23 Rx buspirone 7.5 mg tablet 7.5 mg PO BID #180 tabs 04/10/23 07/08/23 Rx albuterol sulfate 90 mcg/actuation 2 puff inhalation QAM #8.5 grams 05/05/23 07/08/23 Rx aerosol inhaler (Ventolin HFA) Fish Oil [[place]-3 (Purified Fish 1 g PO BID #60 tabs 06/18/23 07/08/23 Rx Oil)] metformin 1,000 mg tablet,extended 1,000 mg PO BIDM #60 tabs 06/18/23 07/08/23 Rx release 24hr insulin glargine 100 unit/mL (3 5 unit (0.05 mL) subcut DAILY #15 06/19/23 07/08/23 Rx mL) subcutaneous pen mL pen needle, diabetic 31 gauge x #50 ea 06/19/23 07/08/23 Rx 5/16" (Pen Needle) duloxetine 40 mg capsule,delayed 40 mg PO DAILY #30 caps 06/20/23 07/08/23 Rx release sprinkle fluticasone furoate 200 1 inh inhalation BID #60 ea 06/20/23 07/08/23 Rx mcg-vilanterol 25 mcg/dose inhalation powder lorazepam 0.5 mg tablet 0.5 mg PO BID PRN anxiety #60 tabs 06/23/23 07/08/23 Rx blood sugar diagnostic (OneTouch #100 ea 06/25/23 07/08/23 Rx Verio test strips) zolpidem 10 mg tablet 10 mg PO HS #30 tabs 07/03/23 07/08/23 Rx Family History Family History of: Depression (father) and Suicide Completion (nephew ) Alcohol History Hx of Alcohol Use Over the Past 12 Months: No AUDIT Total Score: 1 No alcohol intake, very occasionally may have a glass of wine Smoking Use Have You Smoked or Used Tobacco Products in the Last 30 Days: No Smoking Status: Never smoker Substance History Hx of Prescription Med Misuse Over the Past 12 Months: No Hx of Over the Counter Med Misuse Over the Past 12 Months: No Hx of Inhalent Misuse Over the Past 12 Months: No Hx of Organic Substance Use Over the Past 12 Months: No Hx of Illegal Substances/Street Drug Use Over Past 12 Months: No Problems as a Result of Past Substance Use: None Identified Personal History Living Arrangements: Home Highest Grade Completed: High School Graduate Employment Status: Retired Marital Status: Single Number Of Children: 2 sons, one 12 years ago, not close with her other son Beliefs That Will Affect Care: None Current Legal Problems: No Hx Legal Problems: No Hx Traumatic Life Events: Yes (multiple losses) Patient History Medical History Anxiety and depression Asthma inh prn Endometriosis History of COVID-19 10/2021, CVIM test, not hosp; headache, chills>resolved. Nausea and vomiting after administration of anesthetic agent "been ok with recent experiences w/anesthesia" Suicidal ideation hx Surgical History H/O colonoscopy History of cholecystectomy History of dilation and curettage History of esophagogastroduodenoscopy (EGD) History of hysteroscopy History of laparoscopy History of total abdominal hysterectomy w/bilat. tubes and ovaries Hx of hernia repair Family History Father Lymphoma Acute myocardial infarction Diabetes Myocardial infarction Son Chronic liver disease Denies family history of Ovarian cancer Prostate cancer Breast cancer Colorectal cancer Social History Smoking Status: Never smoker Second Hand Exposure: Yes (mother smoked); Do You Dip or Chew Tobacco: No; Hx Alcohol Use: Yes Alcohol type: hard liquor Hx Substance Use: No Preferred Language: Telugu Communication Ability: Effective Visual Impairment: No Limitations Hearing Ability: Normal Sr. Manager Required: No Beliefs That Will Affect Care: None marital status: Current Living Situation: Alone current occupational status: employed current occupation: medical billing Feels Safe at Home: Yes Childhood Exposure to Second-Hand Smoke: Yes Dental Care, Regularly: Yes Physical Activity Frequency: Daily Seatbelt Use: always Sunscreen Use: No Gender Identity: Female Assistive Devices: None Review of Systems Review of Systems: All systems reviewed & are unremarkable except as noted in HPI & below Physical Exam Psychiatric: Orientation: alert and oriented x 3 Apperance: appropriately dressed and appropriately groomed Eye Contact: good eye contact Motor Behavior: no abnormal motor movements Speech: normal rate/rhythm/volume of speech Affect: + depressed affect and + tearful affect Mood: + depressed mood and + anxious mood Thought Process: goal directed thought process Thought Content: reality based without delusions Suicidal Thoughts: denies suicidal intent; + reports suicidal thoughts (intermittent thoughts ) and + reports suicidal plan (none for hospital, OD on meds outside of hospital) Homicidal Thoughts: denies homicidal thoughts Hallucinations: no auditory hallucinations and no visual hallucinations Cognition: recent memory grossly intact, remote memory grossly intact, attention grossly intact and language grossly intact Estimated Intelligence: consistent with education level Insight: + limited insight Judgment: + limited judgement Vital Signs (Past 24 Hours): Last Vital Signs Temp 36.4 C L 07/09/23 06:42 Pulse 89 07/09/23 06:43 Resp 16 07/09/23 06:42 BP 122/82 07/09/23 06:43 Pulse Ox 96 07/08/23 20:23 O2 Del Method Room Air 07/08/23 20:23 Exam Statement: A physical exam was performed in the ED by Dr. Saldivar for the purposes of medical clearance. I accept that physical as correct and adequate for the purposes of the inpatient physical exam. Results & Data ([facility]) Laboratory Results Laboratory Results - last 24 hr 07/08/23 07/08/23 07/08/23 16:03 16:03 16:03 WBC 7.41 RBC 4.77 Hgb 14.5 Hct 42.9 MCV 89.9 MCH 30.4 MCHC 33.8 RDW Std Deviation 45.5 RDW Coeff of Pako 13.8 Plt Count 230 MPV 11.1 Immature Gran % (Auto) 0.7 Neut % (Auto) 63.1 Lymph % (Auto) 25.1 Angelina % (Auto) 8.4 Eos % (Auto) 1.6 Baso % (Auto) 1.1 Neut # (Auto) 4.68 Lymph # (Auto) 1.86 Angelina # (Auto) 0.62 H Eos # (Auto) 0.12 Baso # (Auto) 0.08 Immature Gran # (Auto) 0.05 Sodium 137 Potassium 4.0 Chloride 104 Carbon Dioxide 22 Anion Gap 11 BUN 15 Creatinine 0.94 Est Cr Clr Drug Dosing 84.6 Est GFR ( Amer) 75.9 Est GFR (Non-Af Amer) 65.5 BUN/Creatinine Ratio 16.0 Glucose 106 H POC Glucose Calcium 10.5 H Total Bilirubin 0.5 AST 58 H ALT 88 H Alkaline Phosphatase 106 H Total Protein 7.4 Albumin 4.2 Globulin 3.2 Albumin/Globulin Ratio 1.3 TSH 3.250 Urine Color Urine Appearance Urine pH Ur Specific [place] Urine Protein Urine Glucose (UA) Urine Ketones Urine Blood Urine Nitrite Urine Bilirubin Urine Urobilinogen Ur Leukocyte Esterase Urine WBC (Auto) Urine RBC (Auto) U Hyaline Cast (Auto) U Epithel Cells (Auto) Urine Bacteria (Auto) Salicylates Urine Opiates Screen Ur Methadone, Qual Acetaminophen Urine Barbiturates Ur Phencyclidine (PCP) U Amphetamin/Meth Scrn MDMA (Ecstasy) Screen U Benzodiazepines Scrn Ur Cocaine Metabolite U Marijuana (THC) Screen Ethyl Alcohol mg/dL SARS-CoV-2, RNA, NAAT 07/08/23 07/08/23 07/08/23 16:03 16:03 16:30 WBC RBC Hgb Hct MCV MCH MCHC RDW Std Deviation RDW Coeff of Pako Plt Count MPV Immature Gran % (Auto) Neut % (Auto) Lymph % (Auto) Angelina % (Auto) Eos % (Auto) Baso % (Auto) Neut # (Auto) Lymph # (Auto) Angelina # (Auto) Eos # (Auto) Baso # (Auto) Immature Gran # (Auto) Sodium Potassium Chloride Carbon Dioxide Anion Gap BUN Creatinine Est Cr Clr Drug Dosing Est GFR ( Amer) Est GFR (Non-Af Amer) BUN/Creatinine Ratio Glucose POC Glucose Calcium Total Bilirubin AST ALT Alkaline Phosphatase Total Protein Albumin Globulin Albumin/Globulin Ratio TSH Urine Color Urine Appearance Urine pH Ur Specific [place] Urine Protein Urine Glucose (UA) Urine Ketones Urine Blood Urine Nitrite Urine Bilirubin Urine Urobilinogen Ur Leukocyte Esterase Urine WBC (Auto) Urine RBC (Auto) U Hyaline Cast (Auto) U Epithel Cells (Auto) Urine Bacteria (Auto) Salicylates < 3.0 L Urine Opiates Screen Ur Methadone, Qual Acetaminophen < 3 L Urine Barbiturates Ur Phencyclidine (PCP) U Amphetamin/Meth Scrn MDMA (Ecstasy) Screen U Benzodiazepines Scrn Ur Cocaine Metabolite U Marijuana (THC) Screen Ethyl Alcohol mg/dL < 10.0 SARS-CoV-2, RNA, NAAT NEGATIVE 07/08/23 07/08/23 07/08/23 16:30 16:30 21:08 WBC RBC Hgb Hct MCV MCH MCHC RDW Std Deviation RDW Coeff of Pako Plt Count MPV Immature Gran % (Auto) Neut % (Auto) Lymph % (Auto) Angelina % (Auto) Eos % (Auto) Baso % (Auto) Neut # (Auto) Lymph # (Auto) Angelina # (Auto) Eos # (Auto) Baso # (Auto) Immature Gran # (Auto) Sodium Potassium Chloride Carbon Dioxide Anion Gap BUN Creatinine Est Cr Clr Drug Dosing Est GFR ( Amer) Est GFR (Non-Af Amer) BUN/Creatinine Ratio Glucose POC Glucose 174 H Calcium Total Bilirubin AST ALT Alkaline Phosphatase Total Protein Albumin Globulin Albumin/Globulin Ratio TSH Urine Color Yellow Urine Appearance Clear Urine pH 5.0 Ur Specific [place] 1.022 Urine Protein Trace H Urine Glucose (UA) Negative Urine Ketones 1+ H Urine Blood Negative Urine Nitrite Negative Urine Bilirubin Negative Urine Urobilinogen Negative Ur Leukocyte Esterase Negative Urine WBC (Auto) 1-5 Urine RBC (Auto) 0-4 U Hyaline Cast (Auto) 1-5 U Epithel Cells (Auto) >30 H Urine Bacteria (Auto) 1+ H Salicylates Urine Opiates Screen Neg Ur Methadone, Qual Neg Acetaminophen Urine Barbiturates Neg Ur Phencyclidine (PCP) Neg U Amphetamin/Meth Scrn Neg MDMA (Ecstasy) Screen Neg U Benzodiazepines Scrn Neg Ur Cocaine Metabolite Neg U Marijuana (THC) Screen Neg Ethyl Alcohol mg/dL SARS-CoV-2, RNA, NAAT 07/09/23 08:33 WBC RBC Hgb Hct MCV MCH MCHC RDW Std Deviation RDW Coeff of Pako Plt Count MPV Immature Gran % (Auto) Neut % (Auto) Lymph % (Auto) Angelina % (Auto) Eos % (Auto) Baso % (Auto) Neut # (Auto) Lymph # (Auto) Angelina # (Auto) Eos # (Auto) Baso # (Auto) Immature Gran # (Auto) Sodium Potassium Chloride Carbon Dioxide Anion Gap BUN Creatinine Est Cr Clr Drug Dosing Est GFR ( Amer) Est GFR (Non-Af Amer) BUN/Creatinine Ratio Glucose POC Glucose 150 H Calcium Total Bilirubin AST ALT Alkaline Phosphatase Total Protein Albumin Globulin Albumin/Globulin Ratio TSH Urine Color Urine Appearance Urine pH Ur Specific [place] Urine Protein Urine Glucose (UA) Urine Ketones Urine Blood Urine Nitrite Urine Bilirubin Urine Urobilinogen Ur Leukocyte Esterase Urine WBC (Auto) Urine RBC (Auto) U Hyaline Cast (Auto) U Epithel Cells (Auto) Urine Bacteria (Auto) Salicylates Urine Opiates Screen Ur Methadone, Qual Acetaminophen Urine Barbiturates Ur Phencyclidine (PCP) U Amphetamin/Meth Scrn MDMA (Ecstasy) Screen U Benzodiazepines Scrn Ur Cocaine Metabolite U Marijuana (THC) Screen Ethyl Alcohol mg/dL SARS-CoV-2, RNA, NAAT Current Inpatient Medications Current Inpatient Medications: Current Inpatient Medications Acetaminophen (Acetaminophen 325 Mg Tab) 650 mg PO Q4H PRN PRN Reason: Headache or Minor Fever Stop: 08/07/23 20:45 Al Hydrox/Mg Hydrox/Simethicone (Aluminum/Magnesium Susp 30 Ml Udc) 30 ml PO Q4H PRN PRN Reason: GI Upset Stop: 08/07/23 20:45 Atorvastatin Calcium (Atorvastatin 10 Mg Tab) 50 mg PO HS TIMOTEO Stop: 08/07/23 21:59 Last Admin: 07/08/23 21:28 Dose: 50 mg Bismuth Subsalicylate (Bismuth Subsalicylate Liqd 236 Ml) 15 ml PO PRN PRN PRN Reason: Loose Stool Stop: 08/07/23 20:45 Buspirone HCl (Buspirone 7.5 Mg Tab) 7.5 mg PO BID TIMOTEO Stop: 08/07/23 20:59 Last Admin: 07/08/23 21:31 Dose: 7.5 mg Fish Oil ([place]-3 (Purified Fish Oil) 1 Gm Cap) 1 gm PO BID TIMOTEO Stop: 08/07/23 20:59 Last Admin: 07/08/23 21:30 Dose: 1 gm Fluticasone/Vilanterol (Fluticasone/Vilanterol 200/25mcg 14 Puffs/Inhaler) 1 puffs INH BID TIMOTEO Stop: 08/07/23 20:59 Last Admin: 07/08/23 21:29 Dose: 1 puffs Hydroxyzine HCl (Hydroxyzine Hcl 25 Mg Tab) 50 mg PO HSZ PRN PRN Reason: Insomnia Stop: 08/07/23 20:45 Last Admin: 07/08/23 22:21 Dose: 50 mg Hydroxyzine HCl (Hydroxyzine Hcl 25 Mg Tab) 25 mg PO Q4H PRN PRN Reason: Anxiety Stop: 08/07/23 20:45 Insulin Glargine (Lantus Per Unit Charge) 5 units SQ HS [facility] Stop: 08/07/23 21:59 Last Admin: 07/08/23 21:24 Dose: 5 units Magnesium Hydroxide (Magnesium Hydroxide Susp 30 Ml Udc) 30 ml PO DAILY PRN PRN Reason: Constipation Stop: 08/07/23 20:45 Multivitamins (Multivitamin Tab) 1 tab PO HS [facility] Stop: 08/07/23 21:59 Last Admin: 07/08/23 21:26 Dose: 1 tab Sodium Chloride (Sodium Chloride 0.65% Na Soln 45 Ml ([place])) 1 - 2 sprays NA PRN PRN PRN Reason: Nasal Dryness/Congestion Stop: 08/07/23 20:45
[2023-07-09] MEDS ORDERED: PHARMACY GLYCEMIC MGMT CONSULT PRN (09:16)
[2023-07-09] MEDS ORDERED: LORazepam 0.5 MG TAB PO PRN (09:28)
[2023-07-09] MEDS ORDERED: busPIRone 7.5 MG TAB PO SCH (10:00)
[2023-07-09] MEDS ORDERED: DULoxetine HCL 20 MG CAP PO SCH (10:00)
[2023-07-09] MEDS ORDERED: ALBUTEROL HFA 8 GM INHALER INH SCH (10:00)
[2023-07-09] MEDS ORDERED: FLUTICASONE/VILANTEROL 200/25MCG 14 PUFFS/INHALER INH SCH (10:00)
[2023-07-09] MEDS: INSULIN ASPART PER UNIT CHARGE SC SCH ×3 (12:39→20:30)
[2023-07-09] MEDS: LANTUS PER UNIT CHARGE SQ SCH (12:40)
--- NOTE | 2023-07-09 13:54 | Pharmacy Report ---
Pharmacy Glycemic Short Note 2 - Date of Service July 09, 2023 - Glycemic Short BSG Results (Last 24 hours): 07/08/23 07/08/23 07/09/23 16:03 21:08 08:33 Glucose 106 H POC Glucose 174 H 150 H 07/09/23 12:23 Glucose POC Glucose 158 H OUTPATIENT ANTIDIABETIC REGIMEN: * Lantus 5 units daily * metformin ER 1000 mg PO BIDM * Jardiance 10 mg PO daily? * HbA1C = 10.1% (06/14/23) ASSESSMENT: * Ms Fung is a 62 y/o F with a PMH of T2DM. * Yesterday (Day of admission) BSGs were 174 mg/dL. * Patient received 5 units of Lantus * BSGs today are 150-158 mg/dL. * Continue Lantus 5 units daily. * Novolog weight-based stress of 1/2 * Continue metformin. PLAN FOR INPATIENT GLYCEMIC CONTROL: * metformin ER 1000 mg PO BIDM * Basal insulin * Lantus 5 units SQ daily * Bolus insulin * NovoLog per scale ACHS or Q6hrs while NPO * Goal Range: Low 110 mg/dL - High 140 mg/dL * Correction Factor: 30 mg/dL/unit * Nutritional / Prandial insulin per carb ratio of 1 unit per 11 grams CHO consumed
[2023-07-09] MEDS ORDERED: ALBUTEROL HFA 8 GM INHALER INH PRN (13:58)
[2023-07-09] MEDS: metFORMIN HCL ER 500 MG TABCR PO SCH (17:21)
[2023-07-09] MEDS: ATORVASTATIN 40 MG TAB PO SCH (21:06)
[2023-07-09] MEDS: busPIRone 15 MG TAB PO SCH (21:06)
[2023-07-09] MEDS: MULTIVITAMIN TAB PO SCH (21:07)
[2023-07-09] MEDS ORDERED: MIRTAZAPINE TAB 15 MG TAB PO SCH (22:00)
[2023-07-09] MEDS: hydrOXYzine HCl 25 MG TAB PO PRN (23:06)
--- NOTE | 2023-07-10 08:45 | Psychiatric Progress Note ---
Date of Service July 10, 2023 Impression / Recommendations Impression Noe is a 62 year old woman with a history of depression, anxiety, insomnia and complicated bereavement who was admitted for SI with plan and ongoing depression and loneliness. Diagnostically consistent with major depressive disorder vs persistent depressive disorder and complicated bereavement. She is deemed in need of psychiatric hospitalization for diagnostic clarification, safety and stabilization, medication management and development of further coping skills. 07/10/2023: Ongoing severe depression with significant anhedonia and low motivation which interferes with her ability to engage in behavioral activation and worsens her isolation. Her son's distancing of their relationship and not allowing her to see her grandchildren seems to be a particularly prominent stressor and driving factor behind her depression and SI. She consents to increasing the dose of Cymbalta and wants to discontinue mirtazapine as she did not find it helpful for sleep. Reviewed side effects including but not limited to: GI, MANCILLA, sexual side effects,elevated BP, elevated HR. She consents to and strongly desires restarting her long standing Ambien, reviewed significant risks with this including but not limited to potential for dangerous or fatal sleep walking behaviors, risk of worsening cognition, risk of worsening mood symptoms. Overall, I spent a total of 50 minutes with this case including review of chart records, direct evaluation of the patient, counseling the patient, discussion during interdisciplinary treatment rounds, ordering medications, risk assessment, and documentation in the electronic health record. (1) Depression with suicidal ideation: (2) Depression with anxiety: (3) Insomnia: (4) Complicated bereavement: Plan 07/10/2023: * Buspar 15mg BID for anxiety * Restart Ambien 10mg HS for insomnia, in future would encourage consideration for sleep study to rule out REYNALDO given this can impact and perpetuate depression and if present could allow for improved sleep in the future without need for medication * Increase Cymbalta to 60mg daily * Ativan 0.5mg daily prn for panic attack/severe anxiety * Reviewed option for possible TMS in the future if medication adjustments remain unsuccessful over time in treating her symptoms 07/09/2023: The patient was admitted to the [facility] ([facility]) on q15 min checks (behavioral with suicide precautions) for safety. The patient will participate in group, recreational, and milieu therapies and will be offered additional individual and family sessions as clinically appropriate. -Increase Buspar from 7.5mg BID to 15mg BID -Discontinue Ambien to trial mirtazapine 15mg HS -Decrease ativan from 0.5mg BID prn to daily prn for severe anxiety/panic attacks -She will consider option of increasing Cymbalta vs trial of Wellbutrin for MDD -Goal of working on empowering her to find new opportunities for social connection/volunteering as well as ongoing focus of outpatient therapy and behavioral activation to help with depression symptoms Inventory Assets Strengths: outpatient providers, willing to get treatment Needs: safety and stabilization, medication adjustment, additional coping skills, increased outpatient services Suicide Risk Level Suicide Risk Level: High-Moderate (q15 min suicide checks) (severe depression with SI with plan prior to admission but feels safe in the hospital, able to safety contract and agrees to let nursing/staff know should they develop plan, intent or feel unable to remain safe. ) Risk Factors Assessment Male: No : Yes Do You Have Access To A Gun?: No Health Problems: Yes Mental Health Diagnoses: Yes Substance Use Disorders: No Previous Attempt: No Family History of Suicide: Yes Previous Psychiatric Hospitalization: Yes Protective Factors Assessment Employed: No Good Rapport with Provider: Yes Interval History Identifying Information NOE GREEN is a 62-year-old F who currently lives in [place] alone, has a history of depression, complicated bereavement, anxiety, insomnia, DM Type II, and was admitted on 07/08/23 19:52 on a 201 voluntary commitment for SI with plan of overdosing on medication. Chief Complaint "Slept was rough". Review of Systems Sleep Information Total Hours of Sleep: 7 Meal Information Percent Meal Consumed - Breakfast: 100 Percent Meal Consumed - Lunch: 100 Percent Meal Consumed - Dinner: 100 Subjective Subjective Patient was seen & assessed and interval progress reviewed with treatment team nursing and social work. Attending groups and eating well. Slept "only a little bit last night" with mirtazapine so she'd like to go back to Ambien as this has worked for many years and she understands the risks with this. She recalls that Wellbutrin made her anxious in the past so would prefer to increase Cymbalta and continue to give time for clinical effect. She notes significant stressor has been her son's reluctance to have a relationship with her and not being able to see her grandchildren noting "it's just really hard". She does have a very good friend Rosa is going to visit her tonight. She acknowledges she needs to engage more with people and had started to go to anglican but really struggles to this consistently due to her low motivation from the depression. Physical Exam Psychiatric Orientation: alert and oriented x 3 Apperance: appropriately dressed and appropriately groomed Eye Contact: good eye contact Motor Behavior: no abnormal motor movements Speech: normal rate/rhythm/volume of speech Affect: + depressed affect and + anxious affect Mood: + depressed mood and + anxious mood Thought Process: goal directed thought process Thought Content: reality based without delusions Suicidal Thoughts: denies suicidal intent; + reports suicidal thoughts (intermittent thoughts ) and + reports suicidal plan (none for hospital, OD on meds outside of hospital) Homicidal Thoughts: denies homicidal thoughts Hallucinations: no auditory hallucinations and no visual hallucinations Cognition: recent memory grossly intact, remote memory grossly intact, attention grossly intact and language grossly intact Estimated Intelligence: consistent with education level Insight: + limited insight Judgment: + limited judgement Vital Signs (Past 24 Hours) Last Vital Signs Temp 36.2 C L 07/10/23 06:36 Pulse 77 07/10/23 06:36 Resp 12 07/10/23 06:36 BP 124/82 07/10/23 06:36 Pulse Ox 98 07/10/23 06:36 O2 Del Method Room Air 07/10/23 06:36 Results & Data ([facility]) Laboratory Results Laboratory Results - last 24 hr 07/09/23 07/09/23 07/09/23 12:23 17:09 20:25 POC Glucose 158 H 139 H 135 H 07/10/23 08:39 POC Glucose 141 H Current Inpatient Medications Current Inpatient Medications: Current Inpatient Medications Acetaminophen (Acetaminophen 325 Mg Tab) 650 mg PO Q4H PRN PRN Reason: Headache or Minor Fever Stop: 08/07/23 20:45 Al Hydrox/Mg Hydrox/Simethicone (Aluminum/Magnesium Susp 30 Ml Udc) 30 ml PO Q4H PRN PRN Reason: GI Upset Stop: 08/07/23 20:45 Albuterol (Albuterol Hfa 8 Gm Inhaler) 2 puffs INH DAILY PRN PRN Reason: Shortness Of Breath Stop: 08/08/23 13:53 Atorvastatin Calcium (Atorvastatin 40 Mg Tab) 40 mg PO HS TIMOTEO Stop: 08/08/23 21:59 Last Admin: 07/09/23 21:06 Dose: 40 mg Bismuth Subsalicylate (Bismuth Subsalicylate Liqd 236 Ml) 15 ml PO PRN PRN PRN Reason: Loose Stool Stop: 08/07/23 20:45 Buspirone HCl (Buspirone 15 Mg Tab) 15 mg PO BID TIMOTEO Stop: 08/08/23 20:59 Last Admin: 07/09/23 21:06 Dose: 15 mg Fish Oil ([place]-3 (Purified Fish Oil) 1 Gm Cap) 1 gm PO BID TIMOTEO Stop: 08/08/23 09:59 Last Admin: 07/09/23 21:06 Dose: 1 gm Fluticasone/Vilanterol (Fluticasone/Vilanterol 200/25mcg 14 Puffs/Inhaler) 1 puffs INH DAILY TIMOTEO Stop: 08/09/23 08:59 Hydroxyzine HCl (Hydroxyzine Hcl 25 Mg Tab) 50 mg PO HSZ PRN PRN Reason: Insomnia Stop: 08/07/23 20:45 Last Admin: 07/09/23 23:06 Dose: 50 mg Hydroxyzine HCl (Hydroxyzine Hcl 25 Mg Tab) 25 mg PO Q4H PRN PRN Reason: Anxiety Stop: 08/07/23 20:45 Insulin Aspart (Insulin Aspart Per Unit Charge) 0 units SC ACHS [facility] Stop: 08/08/23 11:59 Last Admin: 07/09/23 20:30 Dose: 2 units Insulin Glargine (Lantus Per Unit Charge) 5 units SQ DAILY [facility]O Stop: 08/08/23 11:59 Last Admin: 07/09/23 12:40 Dose: 5 units Lorazepam (Lorazepam 0.5 Mg Tab) 0.5 mg PO DAILY PRN PRN Reason: anxiety Stop: 08/08/23 09:27 Last Admin: 07/09/23 21:07 Dose: 0.5 mg Magnesium Hydroxide (Magnesium Hydroxide Susp 30 Ml Udc) 30 ml PO DAILY PRN PRN Reason: Constipation Stop: 08/07/23 20:45 Metformin HCl (Metformin Hcl Er 500 Mg Tabcr) 1,000 mg PO BIDM [facility] Stop: 08/08/23 17:44 Last Admin: 07/09/23 17:21 Dose: 1,000 mg Mirtazapine (Mirtazapine Tab 15 Mg Tab) 15 mg PO HS TIMOTEO Stop: 08/08/23 21:59 Last Admin: 07/09/23 21:07 Dose: 15 mg Miscellaneous Information (Pharmacy Glycemic Mgmt Consult) 1 each N/A UD PRN; Protocol PRN Reason: Consult Stop: 08/08/23 09:15 Multivitamins (Multivitamin Tab) 1 tab PO HS TIMOTEO Stop: 08/08/23 21:59 Last Admin: 07/09/23 21:07 Dose: 1 tab Sodium Chloride (Sodium Chloride 0.65% Na Soln 45 Ml ([place])) 1 - 2 sprays NA PRN PRN PRN Reason: Nasal Dryness/Congestion Stop: 08/07/23 20:45 Mental Health & Subst Abuse Tx Psychiatrist Name of Psychiatrist: Maggie Spaulding PA-C Psychiatrist's Date Of Appointment With Psychiatric Provider: 07/15/23 Time of Appointment with Psychiatrist: 10:00 AM Psychiatric Appointment Comment: [address] [place] [address] Therapist Name of Therapist: Lorenza Wise LCSW Therapist's Therapy Appointment Comment: [address] [facility], [place] [address] Medical Numerical Control Operator Name of Medical Numerical Control Operator: [facility] CRISTIAN Guardado Phone Number for Medical Numerical Control Operator: [phone] Date of Appointment with Medical Numerical Control Operator: 07/14/23 Time of Appointment with Medical Numerical Control Operator: 10:30 AM Case Management Appointment Comment: BCM will meet with you at your home. Post Discharge Appointments Primary Care Physician Name Of Family Doctor/PCP: HOWIE Obregon Primary [facility] Time of Appointment with PCP: [address] [place] [address] Provider Appointment Comment: Please follow-up with your PCP as needed. Contact Information Discharge Discharge Address: [place] [address]
[2023-07-10] MEDS: busPIRone 15 MG TAB PO SCH ×2 (08:52→21:47)
[2023-07-10] MEDS: FLUTICASONE/VILANTEROL 200/25MCG 14 PUFFS/INHALER INH SCH (08:52)
[2023-07-10] MEDS: OMEGA-3 (PURIFIED FISH OIL) 1 GM CAP PO SCH ×2 (08:52→21:47)
[2023-07-10] MEDS: metFORMIN HCL ER 500 MG TABCR PO SCH ×2 (08:53→18:10)
[2023-07-10] MEDS: INSULIN ASPART PER UNIT CHARGE SC SCH ×4 (09:00→21:53)
[2023-07-10] MEDS: LANTUS PER UNIT CHARGE SQ SCH (09:01)
[2023-07-10] MEDS: DULoxetine HCL 60 MG CAP PO SCH (10:46)
[2023-07-10] MEDS: diphenhydrAMINE 2%/ZINC 0.1% CREAM 28.4GM TUBE EXT PRN (12:34)
[2023-07-10] MEDS: ATORVASTATIN 40 MG TAB PO SCH (21:48)
[2023-07-10] MEDS: MULTIVITAMIN TAB PO SCH (21:48)
[2023-07-10] MEDS: ZOLPIDEM TARTRATE 5 MG TAB PO SCH (21:49)
[2023-07-10] MEDS ORDERED: ZOLPIDEM TARTRATE 10 MG TAB PO SCH (22:00)
[2023-07-11] MEDS: OMEGA-3 (PURIFIED FISH OIL) 1 GM CAP PO SCH ×2 (08:47→21:30)
[2023-07-11] MEDS: FLUTICASONE/VILANTEROL 200/25MCG 14 PUFFS/INHALER INH SCH (08:47)
[2023-07-11] MEDS: busPIRone 15 MG TAB PO SCH ×2 (08:47→21:30)
[2023-07-11] MEDS: metFORMIN HCL ER 500 MG TABCR PO SCH ×2 (08:47→17:54)
[2023-07-11] MEDS: DULoxetine HCL 60 MG CAP PO SCH (08:47)
[2023-07-11] MEDS: INSULIN ASPART PER UNIT CHARGE SC SCH ×4 (08:57→20:47)
[2023-07-11] MEDS: LANTUS PER UNIT CHARGE SQ SCH (08:59)
--- NOTE | 2023-07-11 09:01 | Psychiatric Progress Note ---
Date of Service July 11, 2023 Impression / Recommendations Impression Noe is a 62 year old woman with a history of depression, anxiety, insomnia and complicated bereavement who was admitted for SI with plan and ongoing depression and loneliness. Diagnostically consistent with major depressive disorder vs persistent depressive disorder and complicated bereavement. She is deemed in need of psychiatric hospitalization for diagnostic clarification, safety and stabilization, medication management and development of further coping skills. 07/11/2023: Depression lessening slightly, she is recognizing impact of loneliness and possible dependent traits on why she feels things have been so difficult recently. She willing to start considering some behavioral activation interventions such as rejoining a [employer] and going to druze. Reviewed potential for sleep study in the future if mood continues to be very depressed with low energy even with these interventions and medication effects. Tolerating higher dose of Cymbalta and sleep improved subjectively from her standpoint with restart of Ambien. Overall, I spent a total of 45 minutes with this case including review of chart records, direct evaluation of the patient, counseling the patient, discussion during interdisciplinary treatment rounds, ordering medications, risk assessment, and documentation in the electronic health record. (1) Depression with suicidal ideation: (2) Depression with anxiety: (3) Insomnia: (4) Complicated bereavement: Plan 07/11/2023: Continue current medications and tx plan. Ongoing encouragement to consider opportunities for behavioral activation. 07/10/2023: * Buspar 15mg BID for anxiety * Restart Ambien 10mg HS for insomnia, in future would encourage consideration for sleep study to rule out REYNALDO given this can impact and perpetuate depression and if present could allow for improved sleep in the future without need for medication * Increase Cymbalta to 60mg daily * Ativan 0.5mg daily prn for panic attack/severe anxiety * Reviewed option for possible TMS in the future if medication adjustments remain unsuccessful over time in treating her symptoms 07/09/2023: The patient was admitted to the [facility] ([facility]) on q15 min checks (behavioral with suicide precautions) for safety. The patient will participate in group, recreational, and milieu therapies and will be offered additional individual and family sessions as clinically appropriate. -Increase Buspar from 7.5mg BID to 15mg BID -Discontinue Ambien to trial mirtazapine 15mg HS -Decrease ativan from 0.5mg BID prn to daily prn for severe anxiety/panic attacks -She will consider option of increasing Cymbalta vs trial of Wellbutrin for MDD -Goal of working on empowering her to find new opportunities for social connection/volunteering as well as ongoing focus of outpatient therapy and behavioral activation to help with depression symptoms Inventory Assets Strengths: outpatient providers, willing to get treatment Needs: safety and stabilization, medication adjustment, additional coping skills, increased outpatient services Suicide Risk Level Suicide Risk Level: High-Moderate (q15 min suicide checks) (severe depression with SI with plan prior to admission but feels safe in the hospital, able to safety contract and agrees to let nursing/staff know should they develop plan, intent or feel unable to remain safe. ) Risk Factors Assessment Male: No : Yes Do You Have Access To A Gun?: No Health Problems: Yes Mental Health Diagnoses: Yes Substance Use Disorders: No Previous Attempt: No Family History of Suicide: Yes Previous Psychiatric Hospitalization: Yes Protective Factors Assessment Employed: No Good Rapport with Provider: Yes Interval History Identifying Information NOE GREEN is a 62-year-old F who currently lives in [place] alone, has a history of depression, complicated bereavement, anxiety, insomnia, DM Type II, and was admitted on 07/08/23 19:52 on a 201 voluntary commitment for SI with plan of overdosing on medication. Chief Complaint "It's been so hard, I'm really lonely". Review of Systems Sleep Information Total Hours of Sleep: 6 Meal Information Percent Meal Consumed - Breakfast: 75 Percent Meal Consumed - Lunch: 100 Percent Meal Consumed - Dinner: 75 Subjective Subjective Patient was seen & assessed and interval progress reviewed with treatment team nursing and social work. Attending groups. Continues to feel very lonely but recognizing the need to start engaging more in activities to also help with depression improvement. No side effects from higher dose of Cymbalta. Slept "much better" after restarting Ambien, denies any side effects from this. Considering going bowling again. Physical Exam Psychiatric Orientation: alert and oriented x 3 Apperance: appropriately dressed and appropriately groomed Eye Contact: good eye contact Motor Behavior: no abnormal motor movements Speech: normal rate/rhythm/volume of speech Affect: + depressed affect and + constricted affect Mood: + depressed mood Thought Process: goal directed thought process Thought Content: reality based without delusions Suicidal Thoughts: denies suicidal intent; + reports suicidal thoughts (intermittent thoughts ) and + reports suicidal plan (none for hospital, OD on meds outside of hospital) Homicidal Thoughts: denies homicidal thoughts Hallucinations: no auditory hallucinations and no visual hallucinations Cognition: recent memory grossly intact, remote memory grossly intact, attention grossly intact and language grossly intact Estimated Intelligence: consistent with education level Insight: + limited insight Judgment: + limited judgement Vital Signs (Past 24 Hours) Last Vital Signs Temp 36.3 C L 07/11/23 06:33 Pulse 65 07/11/23 06:33 Resp 14 07/11/23 06:33 BP 122/78 07/11/23 06:33 Pulse Ox 97 07/11/23 06:33 O2 Del Method Room Air 07/11/23 06:33 Results & Data ([facility]) Laboratory Results Laboratory Results - last 24 hr 07/10/23 07/10/23 07/10/23 12:16 17:21 21:04 POC Glucose 104 H 163 H 126 H 07/11/23 08:38 POC Glucose 127 H Current Inpatient Medications Current Inpatient Medications: Current Inpatient Medications Acetaminophen (Acetaminophen 325 Mg Tab) 650 mg PO Q4H PRN PRN Reason: Headache or Minor Fever Stop: 08/07/23 20:45 Al Hydrox/Mg Hydrox/Simethicone (Aluminum/Magnesium Susp 30 Ml Udc) 30 ml PO Q4H PRN PRN Reason: GI Upset Stop: 08/07/23 20:45 Albuterol (Albuterol Hfa 8 Gm Inhaler) 2 puffs INH DAILY PRN PRN Reason: Shortness Of Breath Stop: 08/08/23 13:53 Atorvastatin Calcium (Atorvastatin 40 Mg Tab) 40 mg PO HS TIMOTEO Stop: 08/08/23 21:59 Last Admin: 07/10/23 21:48 Dose: 40 mg Bismuth Subsalicylate (Bismuth Subsalicylate Liqd 236 Ml) 15 ml PO PRN PRN PRN Reason: Loose Stool Stop: 08/07/23 20:45 Buspirone HCl (Buspirone 15 Mg Tab) 15 mg PO BID TIMOTEO Stop: 08/08/23 20:59 Last Admin: 07/10/23 21:47 Dose: 15 mg Duloxetine HCl (Duloxetine Hcl 60 Mg Cap) 60 mg PO QAM [facility] Stop: 08/09/23 10:29 Last Admin: 07/10/23 10:46 Dose: 60 mg Fish Oil ([place]-3 (Purified Fish Oil) 1 Gm Cap) 1 gm PO BID TIMOTEO Stop: 08/08/23 09:59 Last Admin: 07/10/23 21:47 Dose: 1 gm Fluticasone/Vilanterol (Fluticasone/Vilanterol 200/25mcg 14 Puffs/Inhaler) 1 puffs INH DAILY TIMOTEO Stop: 08/09/23 08:59 Last Admin: 07/10/23 08:52 Dose: 1 puffs Hydroxyzine HCl (Hydroxyzine Hcl 25 Mg Tab) 50 mg PO HSZ PRN PRN Reason: Insomnia Stop: 08/07/23 20:45 Last Admin: 07/09/23 23:06 Dose: 50 mg Hydroxyzine HCl (Hydroxyzine Hcl 25 Mg Tab) 25 mg PO Q4H PRN PRN Reason: Anxiety Stop: 08/07/23 20:45 Insulin Aspart (Insulin Aspart Per Unit Charge) 0 units SC ACHS [facility] Stop: 08/08/23 11:59 Last Admin: 07/10/23 21:53 Dose: 2 units Insulin Glargine (Lantus Per Unit Charge) 5 units SQ DAILY [facility] Stop: 08/08/23 11:59 Last Admin: 07/10/23 09:01 Dose: 5 units Lorazepam (Lorazepam 0.5 Mg Tab) 0.5 mg PO DAILY PRN PRN Reason: anxiety Stop: 08/08/23 09:27 Last Admin: 07/09/23 21:07 Dose: 0.5 mg Magnesium Hydroxide (Magnesium Hydroxide Susp 30 Ml Udc) 30 ml PO DAILY PRN PRN Reason: Constipation Stop: 08/07/23 20:45 Metformin HCl (Metformin Hcl Er 500 Mg Tabcr) 1,000 mg PO BIDM [facility] Stop: 08/08/23 17:44 Last Admin: 07/10/23 18:10 Dose: 1,000 mg Miscellaneous Information (Pharmacy Glycemic Mgmt Consult) 1 each N/A UD PRN; Protocol PRN Reason: Consult Stop: 08/08/23 09:15 Multivitamins (Multivitamin Tab) 1 tab PO HS TIMOTEO Stop: 08/08/23 21:59 Last Admin: 09/07/23 21:48 Dose: 1 tab Sodium Chloride (Sodium Chloride 0.65% Na Soln 45 Ml ([place])) 1 - 2 sprays NA PRN PRN PRN Reason: Nasal Dryness/Congestion Stop: 08/07/23 20:45 Zinc Acetate/Diphenhydramine (Diphenhydramine 2%/Zinc 0.1% Cream 28.4gm Tube) 1 appln EXT BID PRN PRN Reason: Itching Stop: 08/09/23 10:48 Last Admin: 07/10/23 12:34 Dose: 1 appln Zolpidem Tartrate (Zolpidem Tartrate 5 Mg Tab) 10 mg PO HS TIMOTEO Stop: 08/09/23 21:59 Last Admin: 07/10/23 21:49 Dose: 10 mg Mental Health & Subst Abuse Tx Psychiatrist Name of Psychiatrist: Maggie Spaulding PA-C Psychiatrist's Date Of Appointment With Psychiatric Provider: 07/15/23 Time of Appointment with Psychiatrist: 10:00 AM Psychiatric Appointment Comment: [address] [facility] [place] [address] Therapist Name of Therapist: Lorenza Wise LCSW Therapist's Therapy Appointment Comment: [address] [place] [address] Refinery Operator Coking Name of Refinery Operator Coking: [facility] CRISTIAN Guardado Phone Number for Refinery Operator Coking: [phone] Date of Appointment with Refinery Operator Coking: 07/14/23 Time of Appointment with Refinery Operator Coking: 10:30 AM Case Management Appointment Comment: BCM will meet with you at your home. Post Discharge Appointments Primary Care Physician Name Of Family Doctor/PCP: HOWIE Obregon Primary Care [facility] with [facility]: [address] [facility] [place] [address] Provider Appointment Comment: Please follow-up with your PCP as needed. Other #1: Name of Aftercare Appointment: [facility] Phone Number of Aftercare Appointment: [email or web address] Aftercare Appointment Comment: Please visit website for information regarding local programs. Contact Information Discharge Discharge Address: [address] [place] [address] [place] [address]
--- NOTE | 2023-07-11 14:21 | Pharmacy Report ---
Pharmacy Glycemic Short Note 2 - Date of Service July 11, 2023 - Glycemic Short BSG Results (Last 24 hours): 07/10/23 07/10/23 07/11/23 17:21 21:04 08:38 POC Glucose 163 H 126 H 127 H 07/11/23 12:05 POC Glucose 135 H OUTPATIENT ANTIDIABETIC REGIMEN: * Lantus 5 units daily * metformin ER 1000 mg PO BIDM * Jardiance 10 mg PO daily? * HbA1C = 10.1% (06/14/23) ASSESSMENT: 07/11 * Patient received total of 28 units of insulin yesterday, of which 5 units were basal insulin (home dose) * Metformin added to regimen 07/09 - BSGs stable, no change to novolog * Fasting BSG 127 mg/dL - continue same basal insulin 07/09 * Ms Fung is a 62 y/o F with a PMH of T2DM. * Yesterday (Day of admission) BSGs were 174 mg/dL. * Patient received 5 units of Lantus * BSGs today are 150-158 mg/dL. * Continue Lantus 5 units daily. * Novolog weight-based stress of 1/2 * Continue metformin. PLAN FOR INPATIENT GLYCEMIC CONTROL: * metformin ER 1000 mg PO BIDM * Basal insulin * Lantus 5 units SQ daily * Bolus insulin * NovoLog per scale ACHS or Q6hrs while NPO * Goal Range: Low 110 mg/dL - High 140 mg/dL * Correction Factor: 30 mg/dL/unit * Nutritional / Prandial insulin per carb ratio of 1 unit per 11 grams CHO consumed
[2023-07-11] MEDS: ATORVASTATIN 40 MG TAB PO SCH (21:30)
[2023-07-11] MEDS: MULTIVITAMIN TAB PO SCH (21:30)
[2023-07-11] MEDS: ZOLPIDEM TARTRATE 5 MG TAB PO SCH (21:32)
[2023-07-12] MEDS: metFORMIN HCL ER 500 MG TABCR PO SCH ×2 (08:32→18:01)
[2023-07-12] MEDS: OMEGA-3 (PURIFIED FISH OIL) 1 GM CAP PO SCH ×2 (08:32→21:00)
[2023-07-12] MEDS: busPIRone 15 MG TAB PO SCH ×2 (08:32→21:00)
[2023-07-12] MEDS: FLUTICASONE/VILANTEROL 200/25MCG 14 PUFFS/INHALER INH SCH (08:33)
[2023-07-12] MEDS: DULoxetine HCL 60 MG CAP PO SCH (08:33)
[2023-07-12] MEDS ORDERED: LANTUS PER UNIT CHARGE SQ SCH (09:00)
[2023-07-12] MEDS: INSULIN ASPART PER UNIT CHARGE SC SCH ×4 (09:17→20:57)
[2023-07-12] MEDS: LANTUS PER UNIT CHARGE SQ SCH (09:18)
--- NOTE | 2023-07-12 15:13 | Psychiatric Progress Note ---
Date of Service July 12, 2023 Impression / Recommendations Impression Noe is a 62 year old woman with a history of depression, anxiety, insomnia and complicated bereavement who was admitted for SI with plan and ongoing depression and loneliness. Diagnostically consistent with major depressive disorder vs persistent depressive disorder and complicated bereavement. She is deemed in need of psychiatric hospitalization for diagnostic clarification, safety and stabilization, medication management and development of further coping skills. 07/12/2023: Depression continues, glucose control improved off Abilify. Overall, I spent a total of 32 minutes with this case including review of chart records, direct evaluation of the patient, counseling the patient, discussion during rounds, ordering medications, risk assessment, and documentation in the electronic health record. (1) Depression with suicidal ideation: (2) Depression with anxiety: (3) Insomnia: (4) Complicated bereavement: Plan 07/12/2023: shift Cymbala to hs starting tomorrow. 07/11/2023: Continue current medications and tx plan. Ongoing encouragement to consider opportunities for behavioral activation. 07/10/2023: * Buspar 15mg BID for anxiety * Restart Ambien 10mg HS for insomnia, in future would encourage consideration for sleep study to rule out REYNALDO given this can impact and perpetuate depression and if present could allow for improved sleep in the future without need for medication * Increase Cymbalta to 60mg daily * Ativan 0.5mg daily prn for panic attack/severe anxiety * Reviewed option for possible TMS in the future if medication adjustments remain unsuccessful over time in treating her symptoms 07/09/2023: The patient was admitted to the [facility] ([facility] inpatient mental health unit) on q15 min checks (behavioral with suicide precautions) for safety. The patient will participate in group, recreational, and milieu therapies and will be offered additional individual and family sessions as clinically appropriate. -Increase Buspar from 7.5mg BID to 15mg BID -Discontinue Ambien to trial mirtazapine 15mg HS -Decrease ativan from 0.5mg BID prn to daily prn for severe anxiety/panic attacks -She will consider option of increasing Cymbalta vs trial of Wellbutrin for MDD -Goal of working on empowering her to find new opportunities for social connection/volunteering as well as ongoing focus of outpatient therapy and behavioral activation to help with depression symptoms Inventory Assets Strengths: outpatient providers, willing to get treatment Needs: safety and stabilization, medication adjustment, additional coping skills, increased outpatient services Suicide Risk Level Suicide Risk Level: High-Moderate (q15 min suicide checks) Risk Factors Assessment Male: No : Yes Do You Have Access To A Gun?: No Health Problems: Yes Mental Health Diagnoses: Yes Substance Use Disorders: No Previous Attempt: No Family History of Suicide: Yes Previous Psychiatric Hospitalization: Yes Protective Factors Assessment Employed: No Good Rapport with Provider: Yes Interval History Identifying Information NOE GREEN is a 62-year-old F who currently lives in [place] alone, has a history of depression, complicated bereavement, anxiety, insomnia, DM Type II, and was admitted on 07/08/23 19:52 on a 201 voluntary commitment for SI with plan of overdosing on medication. Chief Complaint "My son says I should do this on my own but I can't." Review of Systems Sleep Information Total Hours of Sleep: 6.5 Meal Information Percent Meal Consumed - Breakfast: 100 Percent Meal Consumed - Lunch: 100 Percent Meal Consumed - Dinner: 90 Subjective Subjective Patient was seen & assessed and interval progress reviewed with nursing. Patient known to me from previous admission, discussed ongoing concerns with son, plan to increase socialization. States she felt tired and is attributing to increase in Cymbalta, would rather take it at night. Physical Exam Psychiatric Orientation: alert and oriented x 3 Apperance: appropriately dressed and appropriately groomed Eye Contact: good eye contact Motor Behavior: no abnormal motor movements Speech: normal rate/rhythm/volume of speech Affect: + depressed affect, + anxious affect and + tearful affect Mood: + depressed mood and + anxious mood Thought Process: goal directed thought process Thought Content: reality based without delusions Suicidal Thoughts: denies suicidal intent; + reports suicidal thoughts (intermittent thoughts ) and + reports suicidal plan (none for hospital, OD on meds outside of hospital) Homicidal Thoughts: denies homicidal thoughts Hallucinations: no auditory hallucinations and no visual hallucinations Cognition: recent memory grossly intact, remote memory grossly intact, attention grossly intact and language grossly intact Estimated Intelligence: consistent with education level Vital Signs (Past 24 Hours) Last Vital Signs Temp 36.5 C 07/12/23 06:33 Pulse 76 07/12/23 06:33 Resp 16 07/12/23 06:33 BP 132/86 07/12/23 06:33 Pulse Ox 97 07/11/23 06:33 O2 Del Method Room Air 07/11/23 06:33 Results & Data ([facility]) Laboratory Results Laboratory Results - last 24 hr 07/11/23 07/11/23 07/12/23 17:23 20:41 08:14 POC Glucose 151 H 179 H 146 H 07/12/23 13:01 POC Glucose 127 H Current Inpatient Medications Current Inpatient Medications: Current Inpatient Medications Acetaminophen (Acetaminophen 325 Mg Tab) 650 mg PO Q4H PRN PRN Reason: Headache or Minor Fever Stop: 08/07/23 20:45 Al Hydrox/Mg Hydrox/Simethicone (Aluminum/Magnesium Susp 30 Ml Udc) 30 ml PO Q4H PRN PRN Reason: GI Upset Stop: 08/07/23 20:45 Albuterol (Albuterol Hfa 8 Gm Inhaler) 2 puffs INH DAILY PRN PRN Reason: Shortness Of Breath Stop: 08/08/23 13:53 Atorvastatin Calcium (Atorvastatin 40 Mg Tab) 40 mg PO HS [facility] Stop: 08/08/23 21:59 Last Admin: 07/11/23 21:30 Dose: 40 mg Bismuth Subsalicylate (Bismuth Subsalicylate Liqd 236 Ml) 15 ml PO PRN PRN PRN Reason: Loose Stool Stop: 08/07/23 20:45 Buspirone HCl (Buspirone 15 Mg Tab) 15 mg PO BID [facility] Stop: 08/08/23 20:59 Last Admin: 07/12/23 08:32 Dose: 15 mg Duloxetine HCl (Duloxetine Hcl 60 Mg Cap) 60 mg PO HS [facility] Stop: 08/12/23 21:59 Fish Oil ([place]-3 (Purified Fish Oil) 1 Gm Cap) 1 gm PO BID [facility] Stop: 08/08/23 09:59 Last Admin: 07/12/23 08:32 Dose: 1 gm Fluticasone/Vilanterol (Fluticasone/Vilanterol 200/25mcg 14 Puffs/Inhaler) 1 puffs INH DAILY [facility] Stop: 08/09/23 08:59 Last Admin: 07/12/23 08:33 Dose: 1 puffs Hydroxyzine HCl (Hydroxyzine Hcl 25 Mg Tab) 50 mg PO HSZ PRN PRN Reason: Insomnia Stop: 08/07/23 20:45 Last Admin: 07/09/23 23:06 Dose: 50 mg Hydroxyzine HCl (Hydroxyzine Hcl 25 Mg Tab) 25 mg PO Q4H PRN PRN Reason: Anxiety Stop: 08/07/23 20:45 Insulin Aspart (Insulin Aspart Per Unit Charge) 0 units SC ACHS [facility] Stop: 08/08/23 11:59 Last Admin: 07/12/23 13:44 Dose: 9 units Insulin Glargine (Lantus Per Unit Charge) 6 units SQ DAILY [facility] Stop: 08/08/23 11:59 Last Admin: 07/12/23 09:18 Dose: 6 units Lorazepam (Lorazepam 0.5 Mg Tab) 0.5 mg PO DAILY PRN PRN Reason: anxiety Stop: 08/08/23 09:27 Last Admin: 07/09/23 21:07 Dose: 0.5 mg Magnesium Hydroxide (Magnesium Hydroxide Susp 30 Ml Udc) 30 ml PO DAILY PRN PRN Reason: Constipation Stop: 08/07/23 20:45 Metformin HCl (Metformin Hcl Er 500 Mg Tabcr) 1,000 mg PO BIDM REPLACED BY [facility] Stop: 08/08/23 17:44 Last Admin: 07/12/23 08:32 Dose: 1,000 mg Miscellaneous Information (Pharmacy Glycemic Mgmt Consult) 1 each N/A UD PRN; Protocol PRN Reason: Consult Stop: 08/08/23 09:15 Multivitamins (Multivitamin Tab) 1 tab PO HS REPLACED BY [facility] Stop: 08/08/23 21:59 Last Admin: 07/11/23 21:30 Dose: 1 tab Sodium Chloride (Sodium Chloride 0.65% Na Soln 45 Ml ([place])) 1 - 2 sprays NA PRN PRN PRN Reason: Nasal Dryness/Congestion Stop: 08/07/23 20:45 Zinc Acetate/Diphenhydramine (Diphenhydramine 2%/Zinc 0.1% Cream 28.4gm Tube) 1 appln EXT BID PRN PRN Reason: Itching Stop: 08/09/23 10:48 Last Admin: 07/10/23 12:34 Dose: 1 appln Zolpidem Tartrate (Zolpidem Tartrate 5 Mg Tab) 10 mg PO HS [facility] Stop: 08/09/23 21:59 Last Admin: 07/11/23 21:32 Dose: 10 mg Mental Health & Subst Abuse Tx Psychiatrist Name of Psychiatrist: Maggie Spaulding PA-C Psychiatrist's Date Of Appointment With Psychiatric Provider: 07/15/23 Time of Appointment with Psychiatrist: 10:00 AM Psychiatric Appointment Comment: [address] [facility], [place] [address] Therapist Name of Therapist: Lorenza Wise LCSW Therapist's Time of Therapist Appointment: Please resume your normal schedule. Therapy Appointment Comment: [address] [facility], [place] [address] Gardener Florist Name of Gardener Florist: [facility]ST[facility] Debby Phone Number for Gardener Florist: [phone] Date of Appointment with Gardener Florist: 07/16/23 Time of Appointment with Gardener Florist: 2:30 PM Case Management Appointment Comment: BCM will meet with you at your home. Post Discharge Appointments Primary Care Physician Name Of Family Doctor/PCP: HOWIE Obregon [facility] Time of Appointment with PCP: [address], [place] [address] Provider Appointment Comment: Please follow-up with your PCP as needed. Contact Information [facility]charge [facility]charge [facility] [address]
[2023-07-12] MEDS: ATORVASTATIN 40 MG TAB PO SCH (21:01)
[2023-07-12] MEDS: MULTIVITAMIN TAB PO SCH (21:01)
[2023-07-12] MEDS: ZOLPIDEM TARTRATE 5 MG TAB PO SCH (21:05)
[2023-07-13] MEDS: busPIRone 15 MG TAB PO SCH ×2 (08:55→20:56)
[2023-07-13] MEDS: OMEGA-3 (PURIFIED FISH OIL) 1 GM CAP PO SCH ×2 (08:55→20:57)
[2023-07-13] MEDS: metFORMIN HCL ER 500 MG TABCR PO SCH ×2 (08:55→17:26)
[2023-07-13] MEDS: FLUTICASONE/VILANTEROL 200/25MCG 14 PUFFS/INHALER INH SCH (08:56)
[2023-07-13] MEDS: LANTUS PER UNIT CHARGE SQ SCH (09:23)
[2023-07-13] MEDS: INSULIN ASPART PER UNIT CHARGE SC SCH ×4 (09:23→20:54)
--- NOTE | 2023-07-13 15:24 | Psychiatric Progress Note ---
Date of Service July 13, 2023 Impression / Recommendations Impression Noe is a 62 year old woman with a history of depression, anxiety, insomnia and complicated bereavement who was admitted for SI with plan and ongoing depression and loneliness. Diagnostically consistent with major depressive disorder vs persistent depressive disorder and complicated bereavement. She is deemed in need of psychiatric hospitalization for diagnostic clarification, safety and stabilization, medication management and development of further coping skills. 07/13/2023: unchanged Overall, I spent a total of 27 minutes with this case including direct evaluation of the patient, counseling the patient, coordination with nursing, and documentation in the electronic health record. (1) Depression with suicidal ideation: (2) Depression with anxiety: (3) Insomnia: (4) Complicated bereavement: Plan 07/13/2023: continue current meds and tx plan. 07/12/2023: shift Cymbala to hs starting tomorrow. 07/11/2023: Continue current medications and tx plan. Ongoing encouragement to consider opportunities for behavioral activation. 07/10/2023: * Buspar 15mg BID for anxiety * Restart Ambien 10mg HS for insomnia, in future would encourage consideration for sleep study to rule out REYNALDO given this can impact and perpetuate depression and if present could allow for improved sleep in the future without need for medication * Increase Cymbalta to 60mg daily * Ativan 0.5mg daily prn for panic attack/severe anxiety * Reviewed option for possible TMS in the future if medication adjustments remain unsuccessful over time in treating her symptoms 07/09/2023: The patient was admitted to the [facility] ([facility] mental health unit) on q15 min checks (behavioral with suicide precautions) for safety. The patient will participate in group, recreational, and milieu therapies and will be offered additional individual and family sessions as clinically appropriate. -Increase Buspar from 7.5mg BID to 15mg BID -Discontinue Ambien to trial mirtazapine 15mg HS -Decrease ativan from 0.5mg BID prn to daily prn for severe anxiety/panic attacks -She will consider option of increasing Cymbalta vs trial of Wellbutrin for MDD -Goal of working on empowering her to find new opportunities for social connection/volunteering as well as ongoing focus of outpatient therapy and behavioral activation to help with depression symptoms Inventory Assets Strengths: outpatient providers, willing to get treatment Needs: safety and stabilization, medication adjustment, additional coping skills, increased outpatient services Suicide Risk Level Suicide Risk Level: High-Moderate (q15 min suicide checks) Risk Factors Assessment Male: No : Yes Do You Have Access To A Gun?: No Health Problems: Yes Mental Health Diagnoses: Yes Substance Use Disorders: No Previous Attempt: No Family History of Suicide: Yes Previous Psychiatric Hospitalization: Yes Protective Factors Assessment Employed: No Good Rapport with Provider: Yes Interval History Identifying Information NOE GREEN is a 62-year-old F who currently lives in [place] alone, has a history of depression, complicated bereavement, anxiety, insomnia, DM Type II, and was admitted on 07/08/23 19:52 on a 201 voluntary commitment for SI with plan of overdosing on medication. Chief Complaint "it's just hard to see people leave." Review of Systems Sleep Information Total Hours of Sleep: 7.25 Meal Information Percent Meal Consumed - Breakfast: 100 Percent Meal Consumed - Lunch: 100 Percent Meal Consumed - Dinner: 100 Subjective Subjective Patient was seen & assessed and interval progress reviewed with nursing. Patient tearful and had to leave group after a copatient said dange at discharge. reminded her of the conflict she feels with son. Nursing contacted son to determine the nature of her inability to see grandchildren. Physical Exam Psychiatric Orientation: alert and oriented x 3 Apperance: appropriately dressed and appropriately groomed Eye Contact: good eye contact Motor Behavior: no abnormal motor movements Speech: normal rate/rhythm/volume of speech Affect: + depressed affect and + tearful affect Mood: + depressed mood and + anxious mood Thought Process: goal directed thought process Thought Content: reality based without delusions Suicidal Thoughts: denies suicidal intent; + reports suicidal thoughts (intermittent thoughts ) and + reports suicidal plan (none for hospital, OD on meds outside of hospital) Homicidal Thoughts: denies homicidal thoughts Hallucinations: no auditory hallucinations and no visual hallucinations Cognition: recent memory grossly intact, remote memory grossly intact, attention grossly intact and language grossly intact Estimated Intelligence: consistent with education level Vital Signs (Past 24 Hours) Last Vital Signs Temp 36.8 C 07/13/23 06:38 Pulse 73 07/13/23 06:38 Resp 16 07/13/23 06:38 BP 147/85 H 07/13/23 06:38 Pulse Ox 97 07/11/23 06:33 O2 Del Method Room Air 07/11/23 06:33 Results & Data ([facility]) Laboratory Results Laboratory Results - last 24 hr 07/12/23 07/12/23 07/13/23 17:10 20:39 08:27 POC Glucose 150 H 206 H 144 H 07/13/23 12:21 POC Glucose 166 H Current Inpatient Medications Current Inpatient Medications: Current Inpatient Medications Acetaminophen (Acetaminophen 325 Mg Tab) 650 mg PO Q4H PRN PRN Reason: Headache or Minor Fever Stop: 08/07/23 20:45 Al Hydrox/Mg Hydrox/Simethicone (Aluminum/Magnesium Susp 30 Ml Udc) 30 ml PO Q 4H PRN PRN Reason: GI Upset Stop: 08/07/23 20:45 Albuterol (Albuterol Hfa 8 Gm Inhaler) 2 puffs INH DAILY PRN PRN Reason: Shortness Of Breath Stop: 08/08/23 13:53 Atorvastatin Calcium (Atorvastatin 40 Mg Tab) 40 mg PO HS [facility]O Stop: 08/08/23 21:59 Last Admin: 07/12/23 21:01 Dose: 40 mg Bismuth Subsalicylate (Bismuth Subsalicylate Liqd 236 Ml) 15 ml PO PRN PRN PRN Reason: Loose Stool Stop: 08/07/23 20:45 Buspirone HCl (Buspirone 15 Mg Tab) 15 mg PO BID [facility]O Stop: 08/08/23 20:59 Last Admin: 07/13/23 08:55 Dose: 15 mg Duloxetine HCl (Duloxetine Hcl 60 Mg Cap) 60 mg PO HS TIM[facility]O Stop: 08/12/23 21:59 Fish Oil ([place]-3 (Purified Fish Oil) 1 Gm Cap) 1 gm PO BID TIMOTEO Stop: 08/08/23 09:59 Last Admin: 07/13/23 08:55 Dose: 1 gm Fluticasone/Vilanterol (Fluticasone/Vilanterol 200/25mcg 14 Puffs/Inhaler) 1 puffs INH DAILY [facility] Stop: 08/09/23 08:59 Last Admin: 07/13/23 08:56 Dose: 1 puffs Hydroxyzine HCl (Hydroxyzine Hcl 25 Mg Tab) 50 mg PO HSZ PRN PRN Reason: Insomnia Stop: 08/07/23 20:45 Last Admin: 07/09/23 23:06 Dose: 50 mg Hydroxyzine HCl (Hydroxyzine Hcl 25 Mg Tab) 25 mg PO Q4H PRN PRN Reason: Anxiety Stop: 08/07/23 20:45 Insulin Aspart (Insulin Aspart Per Unit Charge) 0 units SC ACHS [facility] Stop: 08/08/23 11:59 Last Admin: 07/13/23 13:34 Dose: 12 units Insulin Glargine (Lantus Per Unit Charge) 6 units SQ DAILY [facility] Stop: 08/08/23 11:59 Last Admin: 07/13/23 09:23 Dose: 6 units Lorazepam (Lorazepam 0.5 Mg Tab) 0.5 mg PO DAILY PRN PRN Reason: anxiety Stop: 08/08/23 09:27 Last Admin: 07/09/23 21:07 Dose: 0.5 mg Magnesium Hydroxide (Magnesium Hydroxide Susp 30 Ml Udc) 30 ml PO DAILY PRN PRN Reason: Constipation Stop: 08/07/23 20:45 Metformin HCl (Metformin Hcl Er 500 Mg Tabcr) 1,000 mg PO BIDM [facility] Stop: 08/08/23 17:44 Last Admin: 07/13/23 08:55 Dose: 1,000 mg Miscellaneous Information (Pharmacy Glycemic Mgmt Consult) 1 each N/A UD PRN; Protocol PRN Reason: Consult Stop: 08/08/23 09:15 Multivitamins (Multivitamin Tab) 1 tab PO HS [facility] Stop: 08/08/23 21:59 Last Admin: 07/12/23 21:01 Dose: 1 tab Sodium Chloride (Sodium Chloride 0.65% Na Soln 45 Ml ([place])) 1 - 2 sprays NA PRN PRN PRN Reason: Nasal Dryness/Congestion Stop: 08/07/23 20:45 Zinc Acetate/Diphenhydramine (Diphenhydramine 2%/Zinc 0.1% Cream 28.4gm Tube) 1 appln EXT BID PRN PRN Reason: Itching Stop: 08/09/23 10:48 Last Admin: 07/10/23 12:34 Dose: 1 appln Zolpidem Tartrate (Zolpidem Tartrate 5 Mg Tab) 10 mg PO HS [facility] Stop: 08/09/23 21:59 Last Admin: 07/12/23 21:05 Dose: 10 mg Mental Health & Subst Abuse Tx Psychiatrist Name of Psychiatrist: Maggie Spaulding PA-C Psychiatrist's Date Of Appointment With Psychiatric Provider: 07/15/23 Time of Appointment with Psychiatrist: 10:00 AM Psychiatric Appointment Comment: [address] [facility] [place] [address] Therapist Name of Therapist: Lorenza Wise LCSW Therapist's Time of Therapist Appointment: Please resume your normal schedule. Therapy Appointment Comment: [address] [facility], [place] [address] Warp Preparer Name of Warp Preparer: [facility]AV[facility] - [facility] Phone Number for Warp Preparer: [phone] Date of Appointment with Warp Preparer: 07/16/23 Time of Appointment with Warp Preparer: 2:30 PM Case Management Appointment Comment: BCM will meet with you at your home. Post Discharge Appointments Primary Care Physician Name Of Family Doctor/PCP: HOWIE Obregon Primary Care Time of Appointment with PCP: [address], [place] [address] Provider Appointment Comment: Please follow-up with your PCP as needed. Contact Information Discharge Discharge Address: [place] [address]
[2023-07-13] MEDS: ATORVASTATIN 40 MG TAB PO SCH (20:57)
[2023-07-13] MEDS: DULoxetine HCL 60 MG CAP PO SCH (20:58)
[2023-07-13] MEDS: MULTIVITAMIN TAB PO SCH (20:59)
[2023-07-13] MEDS: ZOLPIDEM TARTRATE 5 MG TAB PO SCH (21:01)
[2023-07-14] MEDS: busPIRone 15 MG TAB PO SCH ×2 (08:33→21:20)
[2023-07-14] MEDS: OMEGA-3 (PURIFIED FISH OIL) 1 GM CAP PO SCH ×2 (08:34→21:21)
[2023-07-14] MEDS: FLUTICASONE/VILANTEROL 200/25MCG 14 PUFFS/INHALER INH SCH (08:34)
[2023-07-14] MEDS: metFORMIN HCL ER 500 MG TABCR PO SCH ×2 (08:35→17:48)
[2023-07-14] MEDS: INSULIN ASPART PER UNIT CHARGE SC SCH ×4 (08:42→21:26)
[2023-07-14] MEDS: LANTUS PER UNIT CHARGE SQ SCH (08:43)
--- NOTE | 2023-07-14 08:48 | Pharmacy Report ---
Pharmacy Glycemic Short Note 2 - Date of Service July 14, 2023 - Glycemic Short BSG Results (Last 24 hours): 07/13/23 07/13/23 07/13/23 12:21 17:19 20:39 POC Glucose 166 H 111 H 146 H 07/14/23 08:01 POC Glucose 161 H OUTPATIENT ANTIDIABETIC REGIMEN: * Lantus 5 units daily * metformin ER 1000 mg PO BIDM * Jardiance 10 mg PO daily? * HbA1C = 10.1% (06/14/23) ASSESSMENT: 07/14 * Patient received total of 37 units of insulin yesterday, of which 6 units were basal insulin * Fasting BSG 161 mg/dL - plan to likely increase basal insulin tomorrow if still above goal range * Continue same parameters for today 07/11 * Patient received total of 28 units of insulin yesterday, of which 5 units were basal insulin (home dose) * Metformin added to regimen 07/09 - BSGs stable, no change to novolog * Fasting BSG 127 mg/dL - continue same basal insulin 07/09 * Ms Fung is a 62 y/o F with a PMH of T2DM. * Yesterday (Day of admission) BSGs were 174 mg/dL. * Patient received 5 units of Lantus * BSGs today are 150-158 mg/dL. * Continue Lantus 5 units daily. * Novolog weight-based stress of 1/2 * Continue metformin. PLAN FOR INPATIENT GLYCEMIC CONTROL: * metformin ER 1000 mg PO BIDM * Basal insulin * Lantus 6 units SQ daily * Bolus insulin * NovoLog per scale ACHS or Q6hrs while NPO * Goal Range: Low 110 mg/dL - High 140 mg/dL * Correction Factor: 30 mg/dL/unit * Nutritional / Prandial insulin per carb ratio of 1 unit per 8 grams CHO consumed
[2023-07-14] MEDS: diphenhydrAMINE 2%/ZINC 0.1% CREAM 28.4GM TUBE EXT PRN (10:35)
--- NOTE | 2023-07-14 13:58 | Psychiatric Progress Note ---
Date of Service July 14, 2023 Impression / Recommendations Impression Noe is a 62 year old woman with a history of depression, anxiety, insomnia and complicated bereavement who was admitted for SI with plan and ongoing depression and loneliness. Diagnostically consistent with major depressive disorder vs persistent depressive disorder and complicated bereavement. She is deemed in need of psychiatric hospitalization for diagnostic clarification, safety and stabilization, medication management and development of further coping skills. 07/14/2023: improving Overall, I spent a total of 26 minutes with this case including direct evaluation of the patient, counseling the patient, participation in tx team, coordination with sw (1) Depression with suicidal ideation: (2) Depression with anxiety: (3) Insomnia: (4) Complicated bereavement: Plan 07/14/2023: finalize safety plan. 07/13/2023: continue current meds and tx plan. 07/12/2023: shift Cymbala to hs starting tomorrow. 07/11/2023: Continue current medications and tx plan. Ongoing encouragement to consider opportunities for behavioral activation. 07/10/2023: * Buspar 15mg BID for anxiety * Restart Ambien 10mg HS for insomnia, in future would encourage consideration for sleep study to rule out REYNALDO given this can impact and perpetuate depression and if present could allow for improved sleep in the future without need for medication * Increase Cymbalta to 60mg daily * Ativan 0.5mg daily prn for panic attack/severe anxiety * Reviewed option for possible TMS in the future if medication adjustments remain unsuccessful over time in treating her symptoms 07/09/2023: The patient was admitted to the [facility] ([facility]) on q15 min checks (behavioral with suicide precautions) for safety. The patient will participate in group, recreational, and milieu therapies and will be offered additional individual and family sessions as clinically appropriate. -Increase Buspar from 7.5mg BID to 15mg BID -Discontinue Ambien to trial mirtazapine 15mg HS -Decrease ativan from 0.5mg BID prn to daily prn for severe anxiety/panic attacks -She will consider option of increasing Cymbalta vs trial of Wellbutrin for MDD -Goal of working on empowering her to find new opportunities for social connection/volunteering as well as ongoing focus of outpatient therapy and behavioral activation to help with depression symptoms Inventory Assets Strengths: outpatient providers, willing to get treatment Needs: safety and stabilization, medication adjustment, additional coping skills, increased outpatient services Suicide Risk Level Suicide Risk Level: Moderate (q15 min suicide checks) Risk Factors Assessment Male: No : Yes Do You Have Access To A Gun?: No Health Problems: Yes Mental Health Diagnoses: Yes Substance Use Disorders: No Previous Attempt: No Family History of Suicide: Yes Previous Psychiatric Hospitalization: Yes Protective Factors Assessment Employed: No Good Rapport with Provider: Yes Interval History Identifying Information NOE GREEN is a 62-year-old F who currently lives in [place] alone, has a history of depression, complicated bereavement, anxiety, insomnia, DM Type II, and was admitted on 07/08/23 19:52 on a 201 voluntary commitment for SI with plan of overdosing on medication. Chief Complaint "last time I wasn't ready to leave but now I realize I'll never be ready." Review of Systems Sleep Information Total Hours of Sleep: 7.5 Meal Information Percent Meal Consumed - Breakfast: 100 Percent Meal Consumed - Lunch: 100 Percent Meal Consumed - Dinner: 100 Subjective Subjective Patient was seen & assessed and interval progress reviewed with treatment team. Patient recognizes grief is a chronic and nonlinear process. She recognizes son is not ready to alter any of their boundaries with regards to her grandchildren. Feels medication is helping. Still hard to see other patients get discharged as likes the socialization of the hospital. Physical Exam Psychiatric Orientation: alert and oriented x 3 Apperance: appropriately dressed and appropriately groomed Eye Contact: good eye contact Motor Behavior: no abnormal motor movements Speech: normal rate/rhythm/volume of speech Affect: + depressed affect Mood: + depressed mood Thought Process: goal directed thought process Thought Content: reality based without delusions Suicidal Thoughts: denies suicidal thoughts Homicidal Thoughts: denies homicidal thoughts Hallucinations: no auditory hallucinations and no visual hallucinations Cognition: recent memory grossly intact, remote memory grossly intact, attention grossly intact and language grossly intact Estimated Intelligence: consistent with education level Insight: + fair insight Judgment: + fair judgement Vital Signs (Past 24 Hours) Last Vital Signs Temp 36.8 C 07/14/23 06:36 Pulse 94 H 07/14/23 06:37 Resp 16 07/14/23 06:36 BP 161/102 H 07/14/23 06:37 Pulse Ox 97 07/11/23 06:33 O2 Del Method Room Air 07/11/23 06:33 Results & Data ([facility]) Laboratory Results Laboratory Results - last 24 hr 07/13/23 07/13/23 07/14/23 17:19 20:39 08:01 POC Glucose 111 H 146 H 161 H 07/14/23 13:00 POC Glucose 158 H Current Inpatient Medications Current Inpatient Medications: Current Inpatient Medications Acetaminophen (Acetaminophen 325 Mg Tab) 650 mg PO Q4H PRN PRN Reason: Headache or Minor Fever Stop: 08/07/23 20:45 Al Hydrox/Mg Hydrox/Simethicone (Aluminum/Magnesium Susp 30 Ml Udc) 30 ml PO Q4H PRN PRN Reason: GI Upset Stop: 08/07/23 20:45 Albuterol (Albuterol Hfa 8 Gm Inhaler) 2 puffs INH DAILY PRN PRN Reason: Shortness Of Breath Stop: 08/08/23 13:53 Atorvastatin Calcium (Atorvastatin 40 Mg Tab) 40 mg PO HS [facility]OTEO Stop: 08/08/23 21:59 Last Admin: 07/13/23 20:57 Dose: 40 mg Bismuth Subsalicylate (Bismuth Subsalicylate Liqd 236 Ml) 15 ml PO PRN PRN PRN Reason: Loose Stool Stop: 08/07/23 20:45 Buspirone HCl (Buspirone 15 Mg Tab) 15 mg PO BID [facility]O Stop: 08/08/23 20:59 Last Admin: 07/14/23 08:33 Dose: 15 mg Duloxetine HCl (Duloxetine Hcl 60 Mg Cap) 60 mg PO HS TIMOTEO Stop: 08/12/23 21:59 Last Admin: 07/13/23 20:58 Dose: 60 mg Fish Oil ([place]-3 (Purified Fish Oil) 1 Gm Cap) 1 gm PO BID TIMOTEO Stop: 08/08/23 09:59 Last Admin: 07/14/23 08:34 Dose: 1 gm Fluticasone/Vilanterol (Fluticasone/Vilanterol 200/25mcg 14 Puffs/Inhaler) 1 puffs INH DAILY [facility]OTEO Stop: 08/09/23 08:59 Last Admin: 07/14/23 08:34 Dose: 1 puffs Hydroxyzine HCl (Hydroxyzine Hcl 25 Mg Tab) 50 mg PO HSZ PRN PRN Reason: Insomnia Stop: 08/07/23 20:45 Last Admin: 07/09/23 23:06 Dose: 50 mg Hydroxyzine HCl (Hydroxyzine Hcl 25 Mg Tab) 25 mg PO Q4H PRN PRN Reason: Anxiety Stop: 08/07/23 20:45 Insulin Aspart (Insulin Aspart Per Unit Charge) 0 units SC ACHS [facility]OTEO Stop: 08/08/23 11:59 Last Admin: 07/14/23 13:13 Dose: 11 units Insulin Glargine (Lantus Per Unit Charge) 6 units SQ DAILY [facility] Stop: 08/08/23 11:59 Last Admin: 07/14/23 08:43 Dose: 6 units Lorazepam (Lorazepam 0.5 Mg Tab) 0.5 mg PO DAILY PRN PRN Reason: anxiety Stop: 08/08/23 09:27 Last Admin: 07/09/23 21:07 Dose: 0.5 mg Magnesium Hydroxide (Magnesium Hydroxide Susp 30 Ml Udc) 30 ml PO DAILY PRN PRN Reason: Constipation Stop: 08/07/23 20:45 Metformin HCl (Metformin Hcl Er 500 Mg Tabcr) 1,000 mg PO BIDM [facility] Stop: 08/08/23 17:44 Last Admin: 07/14/23 08:35 Dose: 1,000 mg Miscellaneous Information (Pharmacy Glycemic Mgmt Consult) 1 each N/A UD PRN; Protocol PRN Reason: Consult Stop: 08/08/23 09:15 Multivitamins (Multivitamin Tab) 1 tab PO HS [facility] Stop: 08/08/23 21:59 Last Admin: 07/13/23 20:59 Dose: 1 tab Sodium Chloride (Sodium Chloride 0.65% Na Soln 45 Ml ([place])) 1 - 2 sprays NA PRN PRN PRN Reason: Nasal Dryness/Congestion Stop: 08/07/23 20:45 Zinc Acetate/Diphenhydramine (Diphenhydramine 2%/Zinc 0.1% Cream 28.4gm Tube) 1 appln EXT BID PRN PRN Reason: Itching Stop: 08/09/23 10:48 Last Admin: 07/14/23 10:35 Dose: 1 appln Zolpidem Tartrate (Zolpidem Tartrate 5 Mg Tab) 10 mg PO HS [facility] Stop: 08/09/23 21:59 Last Admin: 07/13/23 21:01 Dose: 10 mg Mental Health & Subst Abuse Tx Psychiatrist Name of Psychiatrist: Maggie Spaulding PA-C Psychiatrist's Date Of Appointment With Psychiatric Provider: 08/13/23 Time of Appointment with Psychiatrist: 8:45 PM Psychiatric Appointment Comment: [address] [facility], [place] [address] Therapist Name of Therapist: Lorenza Wise LCSW Therapist's Time of Therapist Appointment: Please resume your normal schedule. Therapy Appointment Comment: [address] [facility], [place] [address] Kaiawhina Kohanga Reo Name of Kaiawhina Kohanga Reo: [facility] CRISTIAN Debby Phone Number for Kaiawhina Kohanga Reo: [phone] Date of Appointment with Kaiawhina Kohanga Reo: 07/16/23 Time of Appointment with Kaiawhina Kohanga Reo: 2:30 PM Case Management Appointment Comment: [facility] will meet with you at your home. Post Discharge Appointments Primary Care Physician Name Of Family Doctor/PCP: [facility] Time of Appointment with PCP: [address], [place] [address] Provider Appointment Comment: Please follow-up with your PCP as needed. Contact Information Discharge Discharge Address: [place] [address]
[2023-07-14] MEDS: ATORVASTATIN 40 MG TAB PO SCH (21:21)
[2023-07-14] MEDS: DULoxetine HCL 60 MG CAP PO SCH (21:22)
[2023-07-14] MEDS: ZOLPIDEM TARTRATE 5 MG TAB PO SCH (21:23)
[2023-07-14] MEDS: MULTIVITAMIN TAB PO SCH (21:23)
[2023-07-15] MEDS: metFORMIN HCL ER 500 MG TABCR PO SCH (08:57)
[2023-07-15] MEDS: OMEGA-3 (PURIFIED FISH OIL) 1 GM CAP PO SCH (08:57)
[2023-07-15] MEDS: busPIRone 15 MG TAB PO SCH (08:57)
[2023-07-15] MEDS: FLUTICASONE/VILANTEROL 200/25MCG 14 PUFFS/INHALER INH SCH (08:57)
[2023-07-15] MEDS: INSULIN ASPART PER UNIT CHARGE SC SCH ×2 (09:04→13:07)
[2023-07-15] MEDS: LANTUS PER UNIT CHARGE SQ SCH (09:05)
--- NOTE | 2023-07-15 13:59 | Discharge Summary ---
Date of Service July 15, 2023 History of Present Illness as per Dr. Mao on admission: Bernice presented to the ED after she was at an appointment with her primary care provider, Dr. Obregon, and endorsed worsening depression, lack of will to live and overusing her ativan and ambien the night prior to sleep and "not feel any pain" and "my mind was racing". She denies this was a suicide attempt or gesture/rehearsal behavior but the next day did develop SI with plan of overdosing on her medication. She's been experiencing more intermittent SI over recent weeks. She was recently admitted to the inpatient psychiatry unit from 06/14/2023 - 06/19/2023 with medication adjustments including from Effexor XR to Cymbalta 40mg (now for about 3 weeks), discontinuation of Abilify. She continues to take Buspar 7.5mg BID (has been on this for about one month and has helped with anxiety), Ativan 0.5mg BID prn (typically takes this every day around this time of year due to anniversary of son's , on and off for the last 12 years), and Ambien 10mg HS (has been on this for the last 12 years). She presents for psychiatric admission for worsening depression and SI with plan of overdosing on medication in the context of multiple psychosocial stressors including "being alone", "feeling very depressed" and the anniversary of her son's . She has been continuing to see her therapist weekly, has been meeting with her new machine adjuster leader case trim and she will soon be seeing Ruma at [facility] for psychiatry. She has struggled in engage in any type of wellness or mood elevating activities or socialization which she attributes to "feeling like I can't until I'm out from under this dark cloud". She endorses depression symptoms of "just being alone", "having to deal with everything myself, it's very overwhelming...fiances, having to take of my house, just everything", low energy, anhedonia, and normal sleep ("until last night when I didn't sleep at all" but then agrees about a week ago she was having more dreams and not sleeping as well). Psychiatric ROS notable for no current nor history of symptoms of nanci, psychosis, nor eating disorder. Physical Exam Psychiatric See admission H&P and DOD assessment. Vital Signs (Past 24 Hours) Last Vital Signs Temp 36.8 C 07/15/23 13:23 Pulse 77 07/15/23 13:23 Resp 16 07/15/23 13:23 BP 161/102 H 07/15/23 13:23 Pulse Ox 97 07/15/23 13:23 O2 Del Method Room Air 07/11/23 06:33 Principal Diagnosis major depressive disorder, recurrent Psychiatric Data See daily stay summary. In short, safety was maintained and the patient was cooperative with care. Medication changes included titration of Cymbalta and restart of Ambien and they tolerated this well. A family session was held with her friend and safety plan was completed prior to discharge. Bernice remains lonely and benefits from the therapeutic milieu which cannot be duplicated outside of the hospital (no partial program locally) so she understandably has some anxiety about backsliding on discharge. She has a plan to text her son about setting up a scheduled phone call once a week so she doesn't feel rejected when he sets boundaries and then also not just calling when distraught. Her blood pressures have varied during her stay, asymptomatic hypertension and can f/u with Dr. Obregon to ensure no other adjustments are needed in medications, doubt related in anyway to Cymbalta titration. Bernice was referred to [facility] for possible intake for TMS. Coordinator will call her to discuss their program and schedule the appointment if she desires. Day of Discharge Assessment Today the patient voices readiness for discharge. They note improvement in mood and deny thoughts to harm self or others. Thoughts remain organized and they are improved from admission. There is no evidence of psychosis. They agree to take mediations as prescribed and keep follow-up appointments. They are stable for discharge to outpatient level of care. Transition of Care Transition Of Care Record: was reviewed with the patient Advance Directives Advance Directives Information Provided: Yes Advance Directives: No Mental Health Advance Directive: No Advance Directives on File: No Living Will: No Power of Expense Analyst: No Advance Directives Reason:: Declines as Mental Health Visit. Suicide Risk Level Suicide Risk Level Comments: Suicide risk at discharge is deemed low as the patient is no longer requiring 24-hr monitoring, has a safety plan, and is free of suicidal ideation at discharge. Risk Factors Assessment Male: No : Yes Do You Have Access To A Gun?: No Health Problems: Yes Mental Health Diagnoses: Yes Substance Use Disorders: No Previous Attempt: No Family History of Suicide: Yes Previous Psychiatric Hospitalization: Yes Protective Factors Assessment Employed: No Good Rapport with Provider: Yes Tobacco Cessation at Discharge Tobacco Cessation Medication Prescribed at Discharge: Not Applicable/Non-Smoker Total Time Total Time Spent: Greater Than 30 Minutes (38 min) Total Time Includes: Examination of the patient, Discharge Planning and Medication Reconciliation Discharge Data Lab Results 07/08/23 07/08/23 07/08/23 16:03 16:03 16:03 WBC 7.41 RBC 4.77 Hgb 14.5 Hct 42.9 MCV 89.9 MCH 30.4 MCHC 33.8 RDW Std Deviation 45.5 RDW Coeff of Pako 13.8 Plt Count 230 MPV 11.1 Immature Gran % (Auto) 0.7 Neut % (Auto) 63.1 Lymph % (Auto) 25.1 Dundy % (Auto) 8.4 Eos % (Auto) 1.6 Baso % (Auto) 1.1 Neut # (Auto) 4.68 Lymph # (Auto) 1.86 Dundy # (Auto) 0.62 H Eos # (Auto) 0.12 Baso # (Auto) 0.08 Immature Gran # (Auto) 0.05 Sodium 137 Potassium 4.0 Chloride 104 Carbon Dioxide 22 Anion Gap 11 BUN 15 Creatinine 0.94 Est Cr Clr Drug Dosing 84.6 Est GFR ( Amer) 75.9 Est GFR (Non-Af Amer) 65.5 BUN/Creatinine Ratio 16.0 Glucose 106 H POC Glucose Calcium 10.5 H Total Bilirubin 0.5 AST 58 H ALT 88 H Alkaline Phosphatase 106 H Total Protein 7.4 Albumin 4.2 Globulin 3.2 Albumin/Globulin Ratio 1.3 TSH 3.250 Urine Color Urine Appearance Urine pH Ur Specific [place] Urine Protein Urine Glucose (UA) Urine Ketones Urine Blood Urine Nitrite Urine Bilirubin Urine Urobilinogen Ur Leukocyte Esterase Urine WBC (Auto) Urine RBC (Auto) U Hyaline Cast (Auto) U Epithel Cells (Auto) Urine Bacteria (Auto) Salicylates Urine Opiates Screen Ur Methadone, Qual Acetaminophen Urine Barbiturates Ur Phencyclidine (PCP) U Amphetamin/Meth Scrn MDMA (Ecstasy) Screen U Benzodiazepines Scrn Ur Cocaine Metabolite U Marijuana (THC) Screen Ethyl Alcohol mg/dL SARS-CoV-2, RNA, NAAT 07/08/23 07/08/23 07/08/23 16:03 16:03 16:30 WBC RBC Hgb Hct MCV MCH MCHC RDW Std Deviation RDW Coeff of Pako Plt Count MPV Immature Gran % (Auto) Neut % (Auto) Lymph % (Auto) Dundy % (Auto) Eos % (Auto) Baso % (Auto) Neut # (Auto) Lymph # (Auto) Dundy # (Auto) Eos # (Auto) Baso # (Auto) Immature Gran # (Auto) Sodium Potassium Chloride Carbon Dioxide Anion Gap BUN Creatinine Est Cr Clr Drug Dosing Est GFR ( Amer) Est GFR (Non-Af Amer) BUN/Creatinine Ratio Glucose POC Glucose Calcium Total Bilirubin AST ALT Alkaline Phosphatase Total Protein Albumin Globulin Albumin/Globulin Ratio TSH Urine Color Urine Appearance Urine pH Ur Specific [place] Urine Protein Urine Glucose (UA) Urine Ketones Urine Blood Urine Nitrite Urine Bilirubin Urine Urobilinogen Ur Leukocyte Esterase Urine WBC (Auto) Urine RBC (Auto) U Hyaline Cast (Auto) U Epithel Cells (Auto) Urine Bacteria (Auto) Salicylates < 3.0 L Urine Opiates Screen Ur Methadone, Qual Acetaminophen < 3 L Urine Barbiturates Ur Phencyclidine (PCP) U Amphetamin/Meth Scrn MDMA (Ecstasy) Screen U Benzodiazepines Scrn Ur Cocaine Metabolite U Marijuana (THC) Screen Ethyl Alcohol mg/dL < 10.0 SARS-CoV-2, RNA, NAAT NEGATIVE 07/08/23 07/08/23 07/08/23 16:30 16:30 21:08 WBC RBC Hgb Hct MCV MCH MCHC RDW Std Deviation RDW Coeff of Pako Plt Count MPV Immature Gran % (Auto) Neut % (Auto) Lymph % (Auto) Dundy % (Auto) Eos % (Auto) Baso % (Auto) Neut # (Auto) Lymph # (Auto) Dundy # (Auto) Eos # (Auto) Baso # (Auto) Immature Gran # (Auto) Sodium Potassium Chloride Carbon Dioxide Anion Gap BUN Creatinine Est Cr Clr Drug Dosing Est GFR ( Amer) Est GFR (Non-Af Amer) BUN/Creatinine Ratio Glucose POC Glucose 174 H Calcium Total Bilirubin AST ALT Alkaline Phosphatase Total Protein Albumin Globulin Albumin/Globulin Ratio TSH Urine Color Yellow Urine Appearance Clear Urine pH 5.0 Ur Specific [place] 1.022 Urine Protein Trace H Urine Glucose (UA) Negative Urine Ketones 1+ H Urine Blood Negative Urine Nitrite Negative Urine Bilirubin Negative Urine Urobilinogen Negative Ur Leukocyte Esterase Negative Urine WBC (Auto) 1-5 Urine RBC (Auto) 0-4 U Hyaline Cast (Auto) 1-5 U Epithel Cells (Auto) >30 H Urine Bacteria (Auto) 1+ H Salicylates Urine Opiates Screen Neg Ur Methadone, Qual Neg Acetaminophen Urine Barbiturates Neg Ur Phencyclidine (PCP) Neg U Amphetamin/Meth Scrn Neg MDMA (Ecstasy) Screen Neg U Benzodiazepines Scrn Neg Ur Cocaine Metabolite Neg U Marijuana (THC) Screen Neg Ethyl Alcohol mg/dL SARS-CoV-2, RNA, NAAT 07/09/23 07/09/23 07/09/23 08:33 12:23 17:09 WBC RBC Hgb Hct MCV MCH MCHC RDW Std Deviation RDW Coeff of Pako Plt Count MPV Immature Gran % (Auto) Neut % (Auto) Lymph % (Auto) Dundy % (Auto) Eos % (Auto) Baso % (Auto) Neut # (Auto) Lymph # (Auto) Dundy # (Auto) Eos # (Auto) Baso # (Auto) Immature Gran # (Auto) Sodium Potassium Chloride Carbon Dioxide Anion Gap BUN Creatinine Est Cr Clr Drug Dosing Est GFR ( Amer) Est GFR (Non-Af Amer) BUN/Creatinine Ratio Glucose POC Glucose 150 H 158 H 139 H Calcium Total Bilirubin AST ALT Alkaline Phosphatase Total Protein Albumin Globulin Albumin/Globulin Ratio TSH Urine Color Urine Appearance Urine pH Ur Specific [place] Urine Protein Urine Glucose (UA) Urine Ketones Urine Blood Urine Nitrite Urine Bilirubin Urine Urobilinogen Ur Leukocyte Esterase Urine WBC (Auto) Urine RBC (Auto) U Hyaline Cast (Auto) U Epithel Cells (Auto) Urine Bacteria (Auto) Salicylates Urine Opiates Screen Ur Methadone, Qual Acetaminophen Urine Barbiturates Ur Phencyclidine (PCP) U Amphetamin/Meth Scrn MDMA (Ecstasy) Screen U Benzodiazepines Scrn Ur Cocaine Metabolite U Marijuana (THC) Screen Ethyl Alcohol mg/dL SARS-CoV-2, RNA, NAAT 07/09/23 07/10/23 07/10/23 20:25 08:39 12:16 WBC RBC Hgb Hct MCV MCH MCHC RDW Std Deviation RDW Coeff of Pako Plt Count MPV Immature Gran % (Auto) Neut % (Auto) Lymph % (Auto) Dundy % (Auto) Eos % (Auto) Baso % (Auto) Neut # (Auto) Lymph # (Auto) Dundy # (Auto) Eos # (Auto) Baso # (Auto) Immature Gran # (Auto) Sodium Potassium Chloride Carbon Dioxide Anion Gap BUN Creatinine Est Cr Clr Drug Dosing Est GFR ( Amer) Est GFR (Non-Af Amer) BUN/Creatinine Ratio Glucose POC Glucose 135 H 141 H 104 H Calcium Total Bilirubin AST ALT Alkaline Phosphatase Total Protein Albumin Globulin Albumin/Globulin Ratio TSH Urine Color Urine Appearance Urine pH Ur Specific [place] Urine Protein Urine Glucose (UA) Urine Ketones Urine Blood Urine Nitrite Urine Bilirubin Urine Urobilinogen Ur Leukocyte Esterase Urine WBC (Auto) Urine RBC (Auto) U Hyaline Cast (Auto) U Epithel Cells (Auto) Urine Bacteria (Auto) Salicylates Urine Opiates Screen Ur Methadone, Qual Acetaminophen Urine Barbiturates Ur Phencyclidine (PCP) U Amphetamin/Meth Scrn MDMA (Ecstasy) Screen U Benzodiazepines Scrn Ur Cocaine Metabolite U Marijuana (THC) Screen Ethyl Alcohol mg/dL SARS-CoV-2, RNA, NAAT 07/10/23 07/10/23 07/11/23 17:21 21:04 08:38 WBC RBC Hgb Hct MCV MCH MCHC RDW Std Deviation RDW Coeff of Pako Plt Count MPV Immature Gran % (Auto) Neut % (Auto) Lymph % (Auto) Dundy % (Auto) Eos % (Auto) Baso % (Auto) Neut # (Auto) Lymph # (Auto) Dundy # (Auto) Eos # (Auto) Baso # (Auto) Immature Gran # (Auto) Sodium Potassium Chloride Carbon Dioxide Anion Gap BUN Creatinine Est Cr Clr Drug Dosing Est GFR ( Amer) Est GFR (Non-Af Amer) BUN/Creatinine Ratio Glucose POC Glucose 163 H 126 H 127 H Calcium Total Bilirubin AST ALT Alkaline Phosphatase Total Protein Albumin Globulin Albumin/Globulin Ratio TSH Urine Color Urine Appearance Urine pH Ur Specific [place] Urine Protein Urine Glucose (UA) Urine Ketones Urine Blood Urine Nitrite Urine Bilirubin Urine Urobilinogen Ur Leukocyte Esterase Urine WBC (Auto) Urine RBC (Auto) U Hyaline Cast (Auto) U Epithel Cells (Auto) Urine Bacteria (Auto) Salicylates Urine Opiates Screen Ur Methadone, Qual Acetaminophen Urine Barbiturates Ur Phencyclidine (PCP) U Amphetamin/Meth Scrn MDMA (Ecstasy) Screen U Benzodiazepines Scrn Ur Cocaine Metabolite U Marijuana (THC) Screen Ethyl Alcohol mg/dL SARS-CoV-2, RNA, NAAT 07/11/23 07/11/23 07/11/23 12:05 17:23 20:41 WBC RBC Hgb Hct MCV MCH MCHC RDW Std Deviation RDW Coeff of Pako Plt Count MPV Immature Gran % (Auto) Neut % (Auto) Lymph % (Auto) Dundy % (Auto) Eos % (Auto) Baso % (Auto) Neut # (Auto) Lymph # (Auto) Dundy # (Auto) Eos # (Auto) Baso # (Auto) Immature Gran # (Auto) Sodium Potassium Chloride Carbon Dioxide Anion Gap BUN Creatinine Est Cr Clr Drug Dosing Est GFR ( Amer) Est GFR (Non-Af Amer) BUN/Creatinine Ratio Glucose POC Glucose 135 H 151 H 179 H Calcium Total Bilirubin AST ALT Alkaline Phosphatase Total Protein Albumin Globulin Albumin/Globulin Ratio TSH Urine Color Urine Appearance Urine pH Ur Specific [place] Urine Protein Urine Glucose (UA) Urine Ketones Urine Blood Urine Nitrite Urine Bilirubin Urine Urobilinogen Ur Leukocyte Esterase Urine WBC (Auto) Urine RBC (Auto) U Hyaline Cast (Auto) U Epithel Cells (Auto) Urine Bacteria (Auto) Salicylates Urine Opiates Screen Ur Methadone, Qual Acetaminophen Urine Barbiturates Ur Phencyclidine (PCP) U Amphetamin/Meth Scrn MDMA (Ecstasy) Screen U Benzodiazepines Scrn Ur Cocaine Metabolite U Marijuana (THC) Screen Ethyl Alcohol mg/dL SARS-CoV-2, RNA, NAAT 07/12/23 07/12/23 07/12/23 08:14 13:01 17:10 WBC RBC Hgb Hct MCV MCH MCHC RDW Std Deviation RDW Coeff of Pako Plt Count MPV Immature Gran % (Auto) Neut % (Auto) Lymph % (Auto) Dundy % (Auto) Eos % (Auto) Baso % (Auto) Neut # (Auto) Lymph # (Auto) Dundy # (Auto) Eos # (Auto) Baso # (Auto) Immature Gran # (Auto) Sodium Potassium Chloride Carbon Dioxide Anion Gap BUN Creatinine Est Cr Clr Drug Dosing Est GFR ( Amer) Est GFR (Non-Af Amer) BUN/Creatinine Ratio Glucose POC Glucose 146 H 127 H 150 H Calcium Total Bilirubin AST ALT Alkaline Phosphatase Total Protein Albumin Globulin Albumin/Globulin Ratio TSH Urine Color Urine Appearance Urine pH Ur Specific [place] Urine Protein Urine Glucose (UA) Urine Ketones Urine Blood Urine Nitrite Urine Bilirubin Urine Urobilinogen Ur Leukocyte Esterase Urine WBC (Auto) Urine RBC (Auto) U Hyaline Cast (Auto) U Epithel Cells (Auto) Urine Bacteria (Auto) Salicylates Urine Opiates Screen Ur Methadone, Qual Acetaminophen Urine Barbiturates Ur Phencyclidine (PCP) U Amphetamin/Meth Scrn MDMA (Ecstasy) Screen U Benzodiazepines Scrn Ur Cocaine Metabolite U Marijuana (THC) Screen Ethyl Alcohol mg/dL SARS-CoV-2, RNA, NAAT 07/12/23 07/13/23 07/13/23 20:39 08:27 12:21 WBC RBC Hgb Hct MCV MCH MCHC RDW Std Deviation RDW Coeff of Pako Plt Count MPV Immature Gran % (Auto) Neut % (Auto) Lymph % (Auto) Dundy % (Auto) Eos % (Auto) Baso % (Auto) Neut # (Auto) Lymph # (Auto) Dundy # (Auto) Eos # (Auto) Baso # (Auto) Immature Gran # (Auto) Sodium Potassium Chloride Carbon Dioxide Anion Gap BUN Creatinine Est Cr Clr Drug Dosing Est GFR ( Amer) Est GFR (Non-Af Amer) BUN/Creatinine Ratio Glucose POC Glucose 206 H 144 H 166 H Calcium Total Bilirubin AST ALT Alkaline Phosphatase Total Protein Albumin Globulin Albumin/Globulin Ratio TSH Urine Color Urine Appearance Urine pH Ur Specific [place] Urine Protein Urine Glucose (UA) Urine Ketones Urine Blood Urine Nitrite Urine Bilirubin Urine Urobilinogen Ur Leukocyte Esterase Urine WBC (Auto) Urine RBC (Auto) U Hyaline Cast (Auto) U Epithel Cells (Auto) Urine Bacteria (Auto) Salicylates Urine Opiates Screen Ur Methadone, Qual Acetaminophen Urine Barbiturates Ur Phencyclidine (PCP) U Amphetamin/Meth Scrn MDMA (Ecstasy) Screen U Benzodiazepines Scrn Ur Cocaine Metabolite U Marijuana (THC) Screen Ethyl Alcohol mg/dL SARS-CoV-2, RNA, NAAT 07/13/23 07/13/23 07/14/23 17:19 20:39 08:01 WBC RBC Hgb Hct MCV MCH MCHC RDW Std Deviation RDW Coeff of Pako Plt Count MPV Immature Gran % (Auto) Neut % (Auto) Lymph % (Auto) Dundy % (Auto) Eos % (Auto) Baso % (Auto) Neut # (Auto) Lymph # (Auto) Dundy # (Auto) Eos # (Auto) Baso # (Auto) Immature Gran # (Auto) Sodium Potassium Chloride Carbon Dioxide Anion Gap BUN Creatinine Est Cr Clr Drug Dosing Est GFR ( Amer) Est GFR (Non-Af Amer) BUN/Creatinine Ratio Glucose POC Glucose 111 H 146 H 161 H Calcium Total Bilirubin AST ALT Alkaline Phosphatase Total Protein Albumin Globulin Albumin/Globulin Ratio TSH Urine Color Urine Appearance Urine pH Ur Specific [place] Urine Protein Urine Glucose (UA) Urine Ketones Urine Blood Urine Nitrite Urine Bilirubin Urine Urobilinogen Ur Leukocyte Esterase Urine WBC (Auto) Urine RBC (Auto) U Hyaline Cast (Auto) U Epithel Cells (Auto) Urine Bacteria (Auto) Salicylates Urine Opiates Screen Ur Methadone, Qual Acetaminophen Urine Barbiturates Ur Phencyclidine (PCP) U Amphetamin/Meth Scrn MDMA (Ecstasy) Screen U Benzodiazepines Scrn Ur Cocaine Metabolite U Marijuana (THC) Screen Ethyl Alcohol mg/dL SARS-CoV-2, RNA, NAAT 07/14/23 07/14/23 07/14/23 13:00 16:55 20:31 WBC RBC Hgb Hct MCV MCH MCHC RDW Std Deviation RDW Coeff of Pako Plt Count MPV Immature Gran % (Auto) Neut % (Auto) Lymph % (Auto) D[place] % (Auto) Eos % (Auto) Baso % (Auto) Neut # (Auto) Lymph # (Auto) Dundy # (Auto) Eos # (Auto) Baso # (Auto) Immature Gran # (Auto) Sodium Potassium Chloride Carbon Dioxide Anion Gap BUN Creatinine Est Cr Clr Drug Dosing Est GFR ( Amer) Est GFR (Non-Af Amer) BUN/Creatinine Ratio Glucose POC Glucose 158 H 113 H 141 H Calcium Total Bilirubin AST ALT Alkaline Phosphatase Total Protein Albumin Globulin Albumin/Globulin Ratio TSH Urine Color Urine Appearance Urine pH Ur Specific [place] Urine Protein Urine Glucose (UA) Urine Ketones Urine Blood Urine Nitrite Urine Bilirubin Urine Urobilinogen Ur Leukocyte Esterase Urine WBC (Auto) Urine RBC (Auto) U Hyaline Cast (Auto) U Epithel Cells (Auto) Urine Bacteria (Auto) Salicylates Urine Opiates Screen Ur Methadone, Qual Acetaminophen Urine Barbiturates Ur Phencyclidine (PCP) U Amphetamin/Meth Scrn MDMA (Ecstasy) Screen U Benzodiazepines Scrn Ur Cocaine Metabolite U Marijuana (THC) Screen Ethyl Alcohol mg/dL SARS-CoV-2, RNA, NAAT 07/15/23 07/15/23 08:37 12:12 WBC RBC Hgb Hct MCV MCH MCHC RDW Std Deviation RDW Coeff of Pako Plt Count MPV Immature Gran % (Auto) Neut % (Auto) Lymph % (Auto) [place] % (Auto) Eos % (Auto) Baso % (Auto) Neut # (Auto) Lymph # (Auto) Dundy # (Auto) Eos # (Auto) Baso # (Auto) Immature Gran # (Auto) Sodium Potassium Chloride Carbon Dioxide Anion Gap BUN Creatinine Est Cr Clr Drug Dosing Est GFR ( Amer) Est GFR (Non-Af Amer) BUN/Creatinine Ratio Glucose POC Glucose 157 H 182 H Calcium Total Bilirubin AST ALT Alkaline Phosphatase Total Protein Albumin Globulin Albumin/Globulin Ratio TSH Urine Color Urine Appearance Urine pH Ur Specific [place] Urine Protein Urine Glucose (UA) Urine Ketones Urine Blood Urine Nitrite Urine Bilirubin Urine Urobilinogen Ur Leukocyte Esterase Urine WBC (Auto) Urine RBC (Auto) U Hyaline Cast (Auto) U Epithel Cells (Auto) Urine Bacteria (Auto) Salicylates Urine Opiates Screen Ur Methadone, Qual Acetaminophen Urine Barbiturates Ur Phencyclidine (PCP) U Amphetamin/Meth Scrn MDMA (Ecstasy) Screen U Benzodiazepines Scrn Ur Cocaine Metabolite U Marijuana (THC) Screen Ethyl Alcohol mg/dL SARS-CoV-2, RNA, NAAT Hospital Course (1) Depression with suicidal ideation: (2) Depression with anxiety: (3) Insomnia: (4) Complicated bereavement: Plan 07/14/2023: finalize safety plan. 07/13/2023: continue current meds and tx plan. 07/12/2023: shift Cymbala to hs starting tomorrow. 07/11/2023: Continue current medications and tx plan. Ongoing encouragement to consider opportunities for behavioral activation. 07/10/2023: * Buspar 15mg BID for anxiety * Restart Ambien 10mg HS for insomnia, in future would encourage consideration for sleep study to rule out REYNALDO given this can impact and perpetuate depression and if present could allow for improved sleep in the future without need for medication * Increase Cymbalta to 60mg daily * Ativan 0.5mg daily prn for panic attack/severe anxiety * Reviewed option for possible TMS in the future if medication adjustments remain unsuccessful over time in treating her symptoms 07/09/2023: The patient was admitted to the [facility] ([facility] inpatient mental health unit) on q15 min checks (behavioral with suicide precautions) for safety. The patient will participate in group, recreational, and milieu therapies and will be offered additional individual and family sessions as clinically appropriate. -Increase Buspar from 7.5mg BID to 15mg BID -Discontinue Ambien to trial mirtazapine 15mg HS -Decrease ativan from 0.5mg BID prn to daily prn for severe anxiety/panic attacks -She will consider option of increasing Cymbalta vs trial of Wellbutrin for MDD -Goal of working on empowering her to find new opportunities for social connection/volunteering as well as ongoing focus of outpatient therapy and behavioral activation to help with depression symptoms Mental Health & Subst Abuse Tx Psychiatrist Name of Psychiatrist: Maggie Spaulding PA-C Psychiatrist's Date Of Appointment With Psychiatric Provider: 08/13/23 Time of Appointment with Psychiatrist: 8:45 PM Psychiatric Appointment Comment: [address] [place] [address] Therapist Name of Therapist: Lorenza Wise LCSW Therapist's Time of Therapist Appointment: Please resume your normal schedule. Therapy Appointment Comment: [address] [facility], [place] [address] Pulvi Mixer Operator Name of Pulvi Mixer Operator: [facility] Phone Number for Pulvi Mixer Operator: [phone] Date of Appointment with Pulvi Mixer Operator: 07/16/23 Time of Appointment with Pulvi Mixer Operator: 2:30 PM Case Management Appointment Comment: BCM will meet with you at your home. Post Discharge Appointments Primary Care Physician Name Of Family Doctor/PCP: HOWIE Obregon Primary Care Time of Appointment with PCP: [address], [place] [address] Provider Appointment Comment: Please follow-up with your PCP as needed. Specialist Name of Specialist: [employer] [employer] Phone Number for Specialist: [facility] [employer] will be in direct contact with you to arrange appt for TMS Time of Appointment with Specialist: [phone] Specialty Appointment Comment: [address] [facility] [place] Smoking Cessation Counseling Tobacco Cessation Medication Prescribed at Discharge: Not Applicable/Non-Smoker Other #1: Name of Aftercare Appointment: [facility] Phone Number of Aftercare Appointment: [email or web address] Aftercare Appointment Comment: Please visit website for information regarding local programs. Contact Information Discharge Discharge [address]: [address] [place] [id number] Discharge Plan Discharge Items Patient Disposition: Home - Self-Care Reason For Visit: UNSPECIFIED DEPRESSIVE DISORDER Discharge Diagnosis: major depressive disorder Activity: Resume your previous activity Non-emergency contact: Primary Care Provider, Psychiatrist and Therapist Call non-emergency contact if: you have any medication questions and your symptoms worsen Follow-up/Referrals: Denver Obregon MD [Primary Care Provider] - Diet: Carb Consistent or DM2 Addtl Attending Provider Instructions: SPECIAL CARE INSTRUCTIONS: 1. Follow through with your scheduled aftercare appointments. If unable to keep an appointment, please call to reschedule. 2. Take your medication only as prescribed. Medication should not be changed or stopped without the approval of your doctor. In the event of worsening symptoms or concerns about side effects, contact your doctor immediately. 3. Utilize new healthy coping skills, anger management skills, and stress management skills learned during your hospitalization. Journal feelings and process them with a support person. Identify stressors or situations that may result in relapse, deterioration or inappropriate behaviors and develop a plan to deal with those issues. 4. If your coping skills are ineffective and you are in crisis, contact your outpatient providers for direction. If unable to reach your providers, please call the [facility] CRISIS LINE AT , go to the [facility] walk-in center at [address], [place], [address], [place], or go to the closest Emergency Room. 5. Avoid alcohol and un-prescribed drugs. 6. You have been provided with the Mental Health Advance Directives Pamphlet for your review. 7. Your condition is stable for discharge to outpatient level of care, but recovery is an ongoing process. Ifthoughts to harm yourself or others return, follow the safety plan developed during your stay. Planning for a safe return home includes securing weapons. Our treatment team recommends weaponsbe removed from the home until your outpatient provider reassesses your progress. In rare cases where the items themselvescannot be removed, guns and ammunitionshould be secured separatelyand keys stored by a reliable personoutside of the home. If you were admitted on an involuntary commitment, the police or other legal authorities may be involved in this process. AFTERCARE APPOINTMENTS: * Please call your insurance company prior to your scheduled appointment to confirm your aftercare providers are covered. Take your insurance information to your appointments. WHO TO CALL AND WHEN: Medical Emergencies: For questions or emergencies related to your hospital stay, please contact the Inpatient Behavioral Health Unit at [phone]. A program clinician is on-call 26/05 for the Behavioral Health Unit for emergencies At any time you feel your situation is an emergency, you may also call 911 immediately. Pending Studies at Discharge: No Stand-Alone Forms: My [facility] [employer], Smoking Cessation Medications and DC Order Prescriptions: New buspirone 15 mg Tablet 15 mg PO BID Qty: 60 0RF duloxetine 60 mg Capsule,Delayed Release(Dr/Ec) 60 mg PO HS Qty: 30 0RF Continued atorvastatin 40 mg tablet 40 mg PO HS Qty: 30 5RF albuterol sulfate [Ventolin HFA] 90 mcg/actuation HFA aerosol inhaler 2 puff inhalation QAM Qty: 8.5 3RF lorazepam 0.5 mg tablet 0.5 mg PO BID PRN (Reason: anxiety) Qty: 60 0RF (DME) OneTouch Verio test strips Strip See Rx Instructions .ROUTE .MEDSUPPLY Qty: 100 5RF Rx Instructions: test blood sugar twice a day zolpidem 10 mg tablet 10 mg PO HS Qty: 30 0RF fluticasone furoate-vilanterol 200-25 mcg/dose blister with device 1 inh INHALATION BID Qty: 60 5RF (DME) lancets [BD Ultra Fine Lancets] 33 gauge misc See Rx Instructions .ROUTE .MEDSUPPLY Rx Instructions: test Blood sugars Twice a day multivitamin [One-A-Day Essential] tablet 1 tab PO HS metformin 1,000 mg tablet extended release 24 hr 1,000 mg PO BIDM Qty: 60 0RF Fish Oil [Chandler-3 (Purified Fish Oil)] 1 g PO BID Qty: 60 0RF insulin glargine 100 unit/mL (3 mL) insulin pen 5 unit subcut DAILY Qty: 15 0RF (DME) pen needle, diabetic [Pen Needle] 31 gauge x 5/16" needle See Rx Instructions .Route Qty: 50 0RF Rx Instructions: As directed once daily with insulin Discontinued buspirone 7.5 mg tablet 7.5 mg PO BID Qty: 180 1RF duloxetine 40 mg capsule, delayed rel sprinkle 40 mg PO DAILY Qty: 30 1RF Rx Instructions: replacing Effexor Discharge Orders: Discharge Order (Routine); Ordered 07/15/23 Ordered By: Brandie Call Admission Data Admit Date/Time: 07/08/23 19:52 Attending Provider: Brandie Call Admit Provider: Ashley Mao Primary Care Provider: Denver Obregon Other Interventions: Discharge Summary Assessment (RN) Last Done: 07/15/23 13:23 Coding Level of Care Code 94067 D/C day mgmt > 30 min Diagnoses Depression with suicidal ideation F32.A; R45.851 Depression with anxiety F41.8 Insomnia G47.00 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
[2023-07-16] MEDS ORDERED: LANTUS PER UNIT CHARGE SQ SCH (09:00)
== END 2023-07-15 15:10 | disposition home or self-care (01) | DRG 881 ==
LOC: ED 15:34 → 3S 19:52 → SUATTDRO 19:52 → 3S 20:15